=== PATIENT | female | born 1955 | race Caucasian/White ===

== ENCOUNTER 2025-08-28 16:44 | Inpatient (IN) | payer MEDICARE, OTHER, SELFPAY ==
[2025-08-28] VITALS (7 sets, daily range): BP systolic 65–125; BP diastolic 41–62; PULSE 45–57; RESP 16–20; TEMP 36.4–36.8; O2SAT 97–100; BMI 26.4; BMI 26.2
--- NOTE | 2025-08-28 17:00 | EDS_ITS ---
HPI History of Present Illness Chief Complaint: Dizziness Narrative Narrative: Patient is a 70-year-old female presenting to the emergency department for lightheadedness and SOB. Patient has a past medical history of paroxysmal A-fib on Xarelto, CAD, PVD, dyslipidemia, hypertension, aortic bypass surgery at in 2009 and tobacco abuse. Patient is here with daughter. The patient was at a on 08/08 and shortly after started to complain of lightheadedness with any movement. When she is at rest she does not have the symptoms however when she is standing up or walking she will become lightheaded. She does not describe it as room spinning or vertiginous symptoms. She does call at dizziness but on further questioning it is lightheadedness. She denies any focal numbness or weakness in her arms or legs. Denies headache, visual changes, slurred speech. Denies any chest pain. She states with only a few steps she will become short of breath and this also started around the same time. States this is abnormal for her. She denies any diaphoresis, abdominal pain, nausea or vomiting. Denies any recent diarrhea, dysuria or hematuria. Denies any falls. States that since October she was sick at that time and now does not have a good appetite and has been eating and drinking less and had weight loss since October. [facility] Medical History Dyslipidemia Tobacco abuse Hypertension PVD (peripheral vascular disease) CAD (coronary artery disease) Paroxysmal atrial fibrillation Cataract PAD (peripheral artery disease) Acid reflux Home Medications Medication Instructions Recorded Last Taken Type amlodipine 5 mg tablet 5 mg PO DAILY 03/01/1505/08 History aspirin 81 mg tablet,delayed 81 mg PO DAILY@0800 03/0105/08/15 History release isosorbide mononitrate 30 mg 30 mg PO DAILY 03/01/15 0 05/08/15 History tablet,extended release 24 hr rivaroxaban 20 mg tablet (Xarelto) 20 mg PO DAILY 02/1105/08/15 History rosuvastatin 40 mg tablet (Crestor) 40 mg PO QHS 03/0105/08/15 History sotalol 80 mg tablet (Betapace AF) 40 mg PO BID 05/09/15 09:00 History lisinopril 40 mg tablet 40 mg PO DAILY 08/28/25 Unkn own History Allergy/AdvReac Type Severity Reaction Status Date / Time cephalexin monohydrate (From Allergy Itching Verified 08/28/25 16:45 Keflex) sulfamethoxazole (From Allergy Rash Verified 08/28/25 16:45 Bactrim) trimethoprim (From Bactrim) Allergy Rash Verified 08/28/25 16:45 atorvastatin calcium (From AdvReac Pain in Verified 08/28/25 16:45 Lipitor) joints Surgical History H/O aorto-femoral bypass H/O heart artery stent S/P cholecystectomy Social History household members: spouse Smoking Status: Current every day smoker tobacco type: cigarettes alcohol intake: current alcohol intake frequency: holidays/special occasions only substance use type: does not use ROS ROS ED ROS Narrative see HPI EXAM Physical Exam Narrative Exam Narrative: Vital signs: Reviewed General: Alert and oriented x 3. No acute distress HEENT: Head is normocephalic and atraumatic, sinuses nontender, pupils equal round and reactive. Nares are patent. Oropharynx and throat exams normal. Moist mucous membranes. Neck: Supple without lymphadenopathy nontender Cardiovascular: Regular rate and rhythm, no murmurs. No rubs or gallops. Normal S1 and S2 Respiratory: Clear to auscultation bilaterally. No wheezes, rales, rhonchi Abdominal: Healed midline abdomianl scar. Soft and nontender. Normal bowel sounds. No guarding or rebound. Nonsurgical abdomen Extremities: No lower extremity edema. No tenderness. No bruising. Normal range of motion. Normal sensation. Skin: No rash or redness. Neurological: Cranial nerves II through XII are grossly intact. Normal strength and sensation. Normal cerebellar function. Normal [id number] testing bilaterally. Normal [id number] testing bilaterally. The rest of the physical exam is unremarkable Const Vital Signs: 08/28/25 16:45 08/28/25 17:50 08/28/25 17:58 Temperature 97.6 F L Temperature Source Oral Pulse Rate 51 L 45 L Pulse Rate [Lying] 48 L Pulse Rate [Sitting (for 1 minute prior to obtaining)] 47 L Pulse Rate [Standing (for 1 minute prior to obtaining)] 57 L Respiratory Rate 18 16 Blood Pressure 105/57 L 96/55 L Blood Pressure [Lying] 115/49 L Blood Pressure [Sitting (for 1 minute prior to obtaining)] 111/57 L Blood Pressure [Standing (for 1 minute prior to obtaining)] 65/41 L Blood Pressure Mean 73 68 Blood Pressure Mean [Lying] 71 Blood Pressure Mean [Sitting (for 1 minute prior to obtaining)] 75 Blood Pressure Mean [Standing (for 1 minute prior to obtaining)] 49 Pulse Ox 99 100 Oxygen Delivery Method Room Air 08/28/25 18:57 08/28/25 21:00 Temperature Temperature Source Pulse Rate 51 L 54 L Pulse Rate [Lying] Pulse Rate [Sitting (for 1 minute prior to obtaining)] Pulse Rate [Standing (for 1 minute prior to obtaining)] Respiratory Rate 16 16 Blood Pressure 104/62 112/56 L Blood Pressure [Lying] Blood Pressure [Sitting (for 1 minute prior to obtaining)] Blood Pressure [Standing (for 1 minute prior to obtaining)] Blood Pressure Mean 76 74 Blood Pressure Mean [Lying] Blood Pressure Mean [Sitting (for 1 minute prior to obtaining)] Blood Pressure Mean [Standing (for 1 minute prior to obtaining)] Pulse Ox 100 99 Oxygen Delivery Method Room Air Room Air NIHSS NIHSS Initial: 1a Level of Consciousness: 0 1b LOC Questions (Score 2 if aphasic/stupor): 0 1c LOC Commands (Only score 1st attempt): 0 2 Best Gaze (If aphasic, use reflexive mvmts.): 0 3 Visual: 0 4 Facial Palsy: 0 5 Motor Arm Right (UN = amputation/fusion): 0 5 Motor Arm Left: 0 6 Motor Leg Right: 0 6 Motor Leg Left: 0 7 Limb ataxia (Only + if out of proportion): 0 8 Sensory (Aphasia/stupor=0 or 1, coma=2): 0 9 Best Language: 0 10 Dysarthria (mute, coma=2, intubated=UN): 0 11 Extinction and Inattention (only scored if +): 0 Total Score: 0 MDM MDM MDM Narrative Medical decision making narrative: Patient is a 70-year-old female presenting to the emergency department for light headedness and dyspnea with exertion. Patient was seen and examined. Vitals are stable. Patient resting bed comfortably in no acute distress. Differential includes but is not limited to: ACS, CHF, pneumonia, anemia, electrolyte abnormality, dehydration EKG shows sinus bradycardia at a rate of [address] depression noted in V3 through V6 with T wave inversions. Similar appearing morphology on EKG one on May 11, 2015 however slightly deepened T waves. CBC with no leukocytosis and anemia of 9.0. Prior it was normal at 13.2 however that was in 2015. CMP with acute renal failure with a BUN of 31 and creatinine of 2.68, bicarb 15.3. Again last values on chart review are from 2015 and were borderline normal. 2 L of fluids were ordered. Transaminitis with AST of 149, ALT of 127 and alk phos of 3391. Elevated total bilirubin of 3.32 with direct of 2.58. Lipase of 172. Troponin and reflex of 21 and 18, no significant delta change. BNP off 931. Urinalysis with evidence of urinary tract infection with nitrites, leukocyte esterase, bacteria and WBC. Rocephin was given. There is also bilirubin and urobilinogen which is consistent with her CMP results. Magnesium within normal limits. Given the acute renal findings, CT of the abdomen and pelvis without contrast was obtained to evaluate for possible obstruction. Also obtained for evaluation of the elevated liver enzymes. She does have a prior history of cholecystectomy. Chest x-ray reviewed myself, no opacities, pneumothorax or wide mediastinum. Radiology read in agreement. CT of the abdomen pelvis shows probable treatment of the aortic aneurysm with 2 separate structures both bifurcating into what appear to be iliac vessels. Recommend confirmation of the suspicion with a contrast-enhanced study as well as correlation with the surgical history. It is my understanding the patient has renal failure. If this scan can not be obtained I would consult vascular surgery. Importantly, there is no extravasation of fluid on the current study to suggest rupture. I did speak with Dr. Vasquez at [facility] vascular surgery who states that this would be an expected finding after the bypass surgery and does not think it needs emergent vascular consultation given stable vitals and imaging findings with no rupture. Given the discussion with vascular surgeon and no evidence of rupture, stable vital signs and no abdominal or chest pain I think the risks of CT imaging with contrast outweigh benefits at this time. If her clinical status changes before going upstairs will obtain CT w contrast. I updated the patient on the lab and imaging findings. Explained that she would need to be admitted to the hospital for the abnormal labs that were discussed with her. She is agreeable. Patient admitted to Dr. Lundberg, hospitalist for further management. Clinical impression UTI Acute renal failure Transaminitis Elevated total bilirubin History & Record Review Discussion w/independent historian: Patient, Family and Significant other Lab Data Attestation: I reviewed the patient's lab results. Labs: Laboratory Results - last 24 hr 08/28/25 08/28/25 08/28/25 16:57 17:47 19:03 WBC 10.4 RBC 3.07 L Hgb 9.0 L Hct 29.3 L MCV 95.4 MCH 29.3 MCHC 30.7 L RDW Std Deviation 63.7 H RDW Coeff of Aisha 18.3 H Plt Count 224 MPV 11.4 Immature Gran % (Auto) 0.600 Neut % (Auto) 67.9 Lymph % (Auto) 21.0 [place] % (Auto) 4.5 Eos % (Auto) 5.1 H Baso % (Auto) 0.9 Absolute Neuts (auto) 7.1 Absolute Lymphs (auto) 2.19 Nucleated RBC % 0 Sodium 140 Potassium 3.7 Chloride 111 H Carbon Dioxide 15.3 L Anion Gap 14 BUN 31 H Creatinine 2.68 H Estim Creat Clear Calc 18.03 L Est GFR (MDRD) Non-Af 19 L BUN/Creatinine Ratio 11.7 Glucose 183 H Calcium 8.9 Phosphorus 4.3 Magnesium 2.2 Total Bilirubin 3.32 H Direct Bilirubin 2.58 H AST 149 H ALT 127 H Alkaline Phosphatase 3391 H Troponin T High Sens 21 H Troponin T Hi Sens 2 Hr 18 H NT pro BNP II 931 H Total Protein 6.6 Albumin 3.2 L Globulin 3.4 Lipase 172 H Urine Color Yellow Urine Clarity Clear Urine pH 6.0 Ur Specific [place] 1.020 Urine Protein 500 H Urine Glucose (UA) Normal Urine Ketones Negative Urine Occult Blood 150 H Urine Nitrite Positive H Urine Bilirubin 3 H Urine Urobilinogen 4 H Ur Leukocyte Esterase 100 H Urine RBC 5-10 SEEN Urine WBC 10-25 SEEN Ur Squamous Epith Cells 5-10 SEEN Urine Bacteria 3+ Hyaline Casts 0-5 SEEN Fine Granular Casts 5-10 SEEN Urine Mucus 0 SEEN Radiography Diagnostic Testing: Clinical Impression(s) from Imaging Studies Chest X-Ray 08/28/25 17:19 IMPRESSION: No acute abnormality Reading Location: [facility] Abdomen/Pelvis CT 08/28/25 18:42 IMPRESSION: Suspect probable treatment of the aortic aneurysm with 2 separate structures both bifurcating into what appear to be iliac vessels. Recommend confirmation of the suspicion with a contrast-enhanced study as well as correlation with the surgical history. It is my understanding the patient has renal failure. If this scan can not be obtained I would consult vascular surgery Importantly, there is no extravasation of fluid on the current study to suggest rupture. A reading will be called at the time of dictation at 8:30 p.m. on 08/28/2025 to the ER Reading Location: [facility] Discharge Plan Disposition Disposition: Acute Care Hospital [facility] Discharge Date/Time: 08/28/25 22:28
--- NOTE | 2025-08-28 17:19 | RAD_ITS ---
PROCEDURE: CHEST PA AND LATERAL 08/28/2025 REASON FOR EXAM: SOB TECHNIQUE: Procedure Code: RADCXR Modality: DX Procedure: CHEST PA AND LATERAL FINDINGS: Normal cardiomediastinal silhouette except for top-normal cardiac size. Lungs are clear. No edema or consolidation RAD/Chest PA and Lateral IMPRESSION: No acute abnormality Reading [facility]
--- NOTE | 2025-08-28 17:19 | EKG12_ITS ---
Test Reason : Blood Pressure : */* mmHG Vent. Rate : 46 BPM Atrial Rate : 46 BPM P-R Int : 134 ms QRS Dur : 94 ms QT Int : 566 ms P-R-T Axes : 52 6 197 degrees QTcB Int : [address] & T wave abnormality, consider inferior ischemia ST & T wave abnormality, consider anterolateral ischemia QTcB >= 480 msec Abnormal ECG Confirmed by LESLIE DAVID, FABY ([id number]), non linear editor HAL BAZAN ([id number]) on 08/30/2025 9:13:23 AM Referred By: Confirmed By: FABY NELSON MD
[2025-08-28] MEDS: 0.9% Normal Saline (1000mL) 1,000 ML 1000 ML IV ×2 (17:24→19:21)
[2025-08-28 17:30] LABS: Hematocrit 29.3 % (37-47); Hemoglobin 9.0 g/dL (12.0-15.0); Immature Granulocytes Count 0.060 X10^3/uL (0.0-0.0); Mean Corp Hgb Conc 30.7 g/dL (32-36); Mean Corpuscular Volume 95.4 fL (81-99); Mean Platelet Vol. 11.4 fl (6.2-12.0); NRBC Flagged by Analyzer 0 % (0-5); Platelet Count 224 K/mm3 (150-450); RBC Distribution Width CV 18.3 % (11.6-14.6); RBC Distribution Width SD 63.7 fl (35.1-43.9); Red Blood Count 3.07 M/mm3 (4.2-5.4); White Blood Count 10.4 K/mm3 (4.4-11.0)
[2025-08-28 18:00] LABS: Mucous, Urine 0 SEEN /hpf (<or=2+)
[2025-08-28 18:04] LABS: Anion Gap 14 (5-15); BUN 31 mg/dL (4-19); BUN/Creat Ratio 11.7 RATIO (10-20); Calcium,Total 8.9 mg/dL (7.6-11.0); Carbon Dioxide 15.3 mmol/L (21.0-32.0); Chloride 111 mmol/L (98-108); Estimated Creatinine Clearance 18.03 ml/min (50-250); Glucose 183 mg/dL (70-99); Potassium 3.7 mmol/L (3.3-5.1); Pro- Brain NATRIURETIC PEPTIDE 931 pg/mL (<=900); Troponin T High Sensitivity 21 ng/L (<=14)
[2025-08-28 18:10] LABS: Color, Urine Yellow (Yellow); Glucose, Dipstick Normal (Normal); Ketone-Dipstick Negative (Negative); Leukocyte Esterase-Dipstick 100 /ul (Negative); Nitrite-Dipstick Positive (Negative); Occult Blood-Urine 150 /ul (Negative); Protein-Dipstick 500 mg/dl (Negative); Specific Gravity, Urine 1.020 (1.002-1.030)
--- OUTSIDE RECORDS SUMMARY | 2025-08-28 18:24 | XMS RPT_ITS | CCD ---
Author Organization [facility] Inform ion Partnership [facility] Care Team Providers Care Mr Teacher Name Role Phone Cole HERNADEZCarli KWAN Primary Care Provider Carlos Quiroz Primary Care Provider [phone] CARLOS QUIROZ Primary Care Unavailabl e JHONNY MEDEL Attending Unavailable CARLOS QUIROZ Primary Care Unavailabl e Allergies Allergy Classification Reported Allergen(s) Allergy Type Date of Onset Reaction(s) Facility (20 sources) atorvastatin; Translations: [ATORVASTATIN CALCIUM] Drug Allergy 09-22-2012 Other: See Comments [facility] (20 sources) Cephalexin; Translations: [CEPHALEXIN] Drug Allergy 09-24-2011 Unknown [facility] (20 sources) Ciprofloxacin; Translations: [CIPROFLOXACIN] Drug Allergy 05-26-2015 Rash [facility] (20 sources) Doxycycline; Translations: [DOXYCYCLINE] Drug Allergy 11-09-2019 GI Upset [facility] Work Phone: (20 sources) Sulfamethoxazole ; Translations: [SULFAMETHOXAZOL E] Drug Allergy 12-08-2012 [facility] (20 sources) Trimethoprim; Translations: [TRIMETHOPRIM] Drug Allergy 12-08-2012 [facility], Swelling [facility] Medications Current Medications Medication Drug Class(es) Dates Sig (Normalized) Sig (Original) [id number] 200 actuat albuterol 0.09 mg/actuat metered dose inhaler (4 sources) beta2-Adrenergic Agonist Start: 11-10-2024 End: 12-10-2024 take 2 puff(s) by inhalation every four hours as needed for wheezing albuterol HFA (PROVENTIL HFA, VENTOLIN HFA) 90 mcg/actuation inhaler Indications: Bronchitis Inhale 2 Puffs as instructed every 4 hours as needed for wheezing/shortnes s of breath. 1 Each 11/10/2024 Active amLODIPine 5 mg oral tablet (20 sources) Dihydropyridine Calcium Channel Elisa Start: 05-12-2021 End: 03-18-2025 take 1 tablet by mouth once daily amLODIPine (NORVASC) 5 mg tablet Indications: Primary hypertension , Coronary artery disease involving [place] coronary artery of [place] heart without angina pectoris , PAD (peripheral artery disease) Take 1 tablet by mouth once daily. 90 tablet 3 03/18/2025 Active Comment on above: Take 1 tablet by kemal th once daily. aspirin 81 mg delayed release oral tablet (20 sources) Platelet Aggregation Inhibitor, Nonsteroidal Anti-inflammatory Drug Start: 12-08-2012 take 1 tablet by mouth once daily aspirin, enteric coated (ECOTRIN LOW STRENGTH) 81 mg EC tablet Take 1 tablet by mouth once daily. 0 12/08/2012 Active Comment on above: Take 1 tablet by kemal th once daily. benzonatate 100 mg oral capsule (1 source) Non-narcotic Antitussive Start: 11-10-2024 End: 11-17-2024 take 1 capsule by mouth three times daily as needed for cough benzonatate (TESSALON PERLE) 100 mg capsule Indications: Bronchitis Take 1 capsule by mouth three times a day as needed for cough for up to 7 days. 21 capsule 11/10/2024 11/17/2024 Active doxycycline hyclate 100 mg oral tablet (1 source) Tetracycline-class Drug Start: 11-10-2024 End: 11-20-2024 take 1 tablet by mouth twice daily doxycycline (VIBRA-TABS) 100 mg tablet Take 1 tablet by mouth two times a day for 10 days. 20 tablet 11/10/2024 11/20/2024 Active Inhalational Spacing Device (1 source) Start: 11-10-2024 End: 11-10-2024 Inhalational Spacing Device Indications: Bronchitis 1 Device one time only for 1 dose. 1 Each 11/10/2024 11/10/2024 Active 24 hr isosorbide mononitrate 30 mg extended release oral tablet (20 sources) Nitrate Vasodilator Start: 05-12-2021 End: 04-05-2025 take 1 tablet by mouth once daily isosorbide mononitrate ER (IMDUR) 30 mg 24 hr tablet Indications: Coronary artery disease involving [place] coronary artery of [place] heart without angina pectoris , PAD (peripheral artery disease) Take 1 tablet by mouth once daily. 90 tablet 3 04/05/2025 Active Comment on above: Take 1 tablet by kemal th once daily. TAKE 1 TABLET BY KEMAL TH EVERY DAY lisinopril 40 mg oral tablet (20 sources) Angiotensin Converting Enzyme Inhibitor Start: 05-12-2021 End: 04-12-2025 take 1 tablet by mouth once daily lisinopril (ZESTRIL) 40 mg tablet Indications: Coronary artery disease involving [place] coronary artery of [place] heart without angina pectoris Take 1 tablet by mouth once daily. 90 tablet 1 04/12/2025 Active Comment on above: Take 1 tablet by kemal th once daily. TAKE 1 TABLET BY KEMAL TH EVERY DAY perflutren lipid microspheres 1.3 mL in NaCl (PF) 0.9% 10 mL injection (DEFINITY) (5 sources) Start: 2022 End: 10-23-2023 perflutren lipid microspheres 1.3 mL in NaCl (PF) 0.9% 10 mL injection (DEFINITY) rivaroxaban 20 mg oral tablet (20 sources) Factor Xa Inhibitor Start: 10-31-2023 End: 12-13-2024 take 1 tablet by mouth once daily rivaroxaban (XARELTO) 20 mg tablet Indications: Paroxysmal atrial fibrillation (HCC) Take 1 tablet by mouth once daily. 90 tablet 3 12/14/2024 Active Start: 03-17-2022 End: 06-19-2023 take 1 tablet by mouth once daily rivaroxaban (XARELTO) 20 mg tablet Indications: Paroxysmal atrial fibrillation (HCC) Take 1 tablet by mouth once daily. Need appointment for future refills. 90 tablet 0 06/19/2023 Active Start: 03-17-2021 End: 03-14-2022 take 1 tablet by mouth once daily rivaroxaban (XARELTO) 20 mg tablet Indications: Paroxysmal atrial fibrillation (HCC) Take 1 tablet by mouth once daily. 90 tablet 3 03/17/2022 Active Comment on above: Take 1 tablet by kemal th once daily. Take 1 tablet by kemal th once daily. Need appointment for future refills. rosuvastatin calcium 40 mg oral tablet (20 sources) HMG-CoA Reductase Inhibitor Start: 05-12-20 End: 03-18-20 take 1 tablet by mouth once rosuvastatin (CRESTOR) 40 mg tablet Indications: Primary hypertension , Coronary artery disease involving [place] coronary artery of [place] heart without angina pectoris , PAD (peripheral artery disease) Take 1 tablet by mouth every afternoon. 90 tablet 3 03/18/2025 Active Comment on above: Take 1 tablet by kemal th once daily. TAKE 1 TABLET BY KEMAL TH EVERY DAY 125 ml sodium chloride 9 mg/ml prefilled syringe (5 sources) Start: 07-24-20 22 End: 10-23-19 24 sodium chloride 0.9 % (flush) 10 mL (BD POSIFLUSH) sotalol hydrochloride 80 mg oral tablet (20 sources) Antiarrhythmic Start: 04-22-20 23 End: 03-18-20 25 take 0.5 tablet by mouth twice daily sotalol (BETAPACE) 80 mg tablet Indications: Primary hypertension , Coronary artery disease involving [place] coronary artery of [place] heart without angina pectoris , PAD (peripheral artery disease) Take 0.5 tablets by mouth two times a day. 90 tablet 03/18/2025 Active Start: 05-12-2021 End: 05-02-2022 take 0.5 tablet by mouth twice daily sotalol (BETAPACE) 80 mg tablet TAKE 1/2 TABLET BY MOUTH TWICE DAILY 90 tablet 3 05/02/2022 Active Comment on above: TAKE 0.5 TABLET BY M OUTH TWICE DAILY. TAKE 1/2 TABLET BY M OUTH TWICE DAILY TAKE 1/2 TABLET BY M OUTH TWICE A DAY Completed/Discontinued Medications Medication Drug Class(es) Dates Sig (Normalized) Sig (Original) 12 hr buPROPion hydrochloride 150 mg extended release oral tablet (14 sources) Aminoketone Start: 1 End: 2 take 1 tablet by mouth twice daily buPROPion SR (ZYBAN SR; WELLBUTRIN SR) 150 mg 12 hr tablet TAKE 1 TABLET BY MOUTH TWICE A DAY 180 tablet 3 06/11/2022 Active Comment on above: TAKE 1 TABLET BY KEMAL TH TWICE A DAY 1 ml evolocumab 140 mg/ml auto-injector (13 sources) PCSK9 Inhibitor Start: 1 inject 140 mg by subcutaneous injection every other week evolocumab 140 mg/mL subcutaneous pen injector (REPATHA SURECLICK) Indications: Pure hypercholesterolemia Inject 140 mg subcutaneously every 2 weeks. 2 Pen 12 03/17/2021 Active Comment on above: Inject 140 mg subcut aneously every 2 weeks. gabapentin 100 mg oral capsule (8 sources) Anti-epileptic Agent Start: gabapentin (NEURONTIN) 100 mg capsule Take 1-3 capsules up to 3 times a day as needed for pain 45 capsule 0 05/12/2021 Active Comment on above: Take 1-3 capsules up to 3 times a day as needed for pain Problems Active Problems Problem Classification Problem Date Documented Da te Episodic/Chronic Cardiac dysrhythmias (20 sources) Paroxysmal atrial fibrillation; Translations: [Paroxysmal atrial fibrillation] Onset: 09-06-2012 Chronic Chronic kidney disease (20 sources) Chronic kidney disease stage 3A ; Translations: [Stage 3a chronic kidney disease (HCC)] Onset: 03-14-2020 Chronic Chronic obstructive pulmonary disease and bronchiectasis (2 sources) Bronchitis; Translations: [Bronchitis, not specified as acute or chronic] 11-10-2024 Episodic Coronary atherosclerosis and other heart disease (20 sources) Coronary atherosclerosis; Translations: [Atherosclerotic heart disease of [place] coronary artery without angina pectoris] Onset: 09-16-2012 Chronic Disorders of lipid metabolism (20 sources) Pure hypercholesterolemi a; Translations: [Pure hypercholesterolemi a, unspecified] Onset: 09-06-2012 Chronic Essential hypertension (20 sources) Hypertensive disorder; Translations: [Essential (primary) hypertension] Onset: 09-06-2012 10-14-2016 Chronic Gout and other crystal arthropathies (20 sources) Acute gout; Translations: [Gout, unspecified] Onset: 08-14-2013 09-08-2013 Chronic Menopausal disorders (20 sources) Atrophic vaginitis; Translations: [Postmenopausal atrophic vaginitis] Onset: 09-17-2018 09-17-2018 Chronic Other aftercare (20 sources) Patient encounter status; Translations: [Encounter for therapeutic drug level monitoring] Onset: 09-06-2012 Episodic Other circulatory disease (20 sources) History of aortofemoral bypass surgery; Translations: [Presence of other vascular implants and grafts] Onset: 07-29-2013 Chronic Other connective tissue disease (20 sources) Plantar fasciitis; Translations: [Plantar fascial fibromatosis] 08-27-2018 Episodic Other lower respiratory disease (1 source) Persistent cough; Translations: [Persistent cough for 3 weeks or longer] 11-10-2024 Episodic Peripheral and visceral atherosclerosis (20 sources) Peripheral vascular disease, unspecified; Translations: [Peripheral vascular disease, unspecified] Onset: 12-08-2012 Chronic Spondylosis; intervertebral disc disorders; other back problems (1 source) Sciatica; Translations: [Sciatica, left side] Episodic Unclassified (10 sources) Drug therapy finding; Translations: [DVT prophylaxis] Onset: 09-06-2012 Past or Other Problems Problem Classification Problem Date Documented Date Episodic/Chronic Coronary atherosclerosis and other heart disease (20 sources) Stent in anterior descending branch of left coronary artery; Translations: [Presence of coronary angioplasty implant and graft] Onset: 2 Episodic Other aftercare (20 sources) Drug therapy finding; Translations: [nursing home (current) use of anticoagulants] Onset: 2 Episodic Other aftercare (7 sources) Long-term current use of drug therapy; Translations: [Encounter for therapeutic drug level monitoring] Onset: 4 04-13-2014 Episodic Other liver diseases (20 sources) Alkaline phosphatase raised; Translations: [Abnormal levels of other serum enzymes] Onset: 2 Episodic Other liver diseases (20 sources) Elevated liver enzymes level; Translations: [Abnormal levels of other serum enzymes] Onset: 3 09-08-2013 Episodic Other screening for suspected conditions (not mental disorders or infectious disease) (20 sources) Electrocardiogram abnormal; Translations: [Abnormal electrocardiogram [ECG] [EKG]] Onset: 2 Episodic Residual codes; unclassified (20 sources) Tobacco user; Translations: [Tobacco use] Onset: 4 Episodic Residual codes; unclassified (20 sources) Harmful pattern of use of nicotine; Translations: [Tobacco use] Onset: 2 Episodic Results Test Name Value Interpretation Reference Range Facil ity 36on 11-10-2024 36 Spoke to patient, no questions. [facility] 36 Currently not taking new patients until we get more help in the office [facility] 36 Name of caller: Priyank Holguin Contact phone number: [phone] Relationship to Patient: patient Provider: Dr. Quiroz Practice: [facility] Chief Complaint/Reason for Call: Pt hasn't been seen in office since 06.07.[address] is [address] Dr. Quiroz would take her back as a patient. Pt stated she isn't feeling well and may have RSV and short of breath, declined nurse triage. Pt would like a call back to discuss. Please advise. Thank you. Best time of day caller can be reached: ANy Patient advised that office/PCP has 24-48 business hours to return their call: Yes [facility] CNOVon 11-10-2024 [facility] Office Visit (UCWSTR ) -------- KIMBERMIRELLA RANDALLS Gillian ([id number]) 1955 F Date Time Provider Department 11/10/24 11:45 AM MARIANA MELGAR [facility] During your visit today, we recorded the following information about you: Temperature Pulse Respiration Blood pressure 97.5 degrees 66/minute 16/minute 128/80 Weight 75.9 kg Mariana Meglar PA-C 11/10/2024 12:09 PM Signed This note was created using [employer]ter. Subjective Maria Teresa Quiroga is a 69 year old female. Patient is a 69-year-old female who is brought by caregiver for evaluation of worsening cough and shortness of breath that she has been experiencing for the past 2 weeks. Patient reports no congestion, sinus pressure, ear pain or sore throat. Patient has no history of asthma or COPD but does have an approximate [id number] history of tobacco use and continues to smoke approximately 1/2 pack cigarettes per day. Patient denies fever, chills or myalgia. Patient denies left chest pain, tightness or pressure. Patient has a substantial cardiovascular history yet continues to smoke. Cough Review of Systems Respiratory: Positive for cough. All other systems reviewed and are negative. Objective BP 128/80 Pulse 66 Temp 36.4 ?C (97.5 ?F) Resp 16 Wt 75.9 kg (167 lb 5.3 oz) SpO2 96% BMI 29.64 kg/m? Physical Exam Vitals and nursing note reviewed. Constitutional: Appearance: Normal appearance. She is normal weight. HENT: Head: Normocephalic and atraumatic. Right Ear: External ear normal. Left Ear: External ear normal. Nose: Nose normal. Mouth/Throat: Mouth: Mucous membranes are moist. Pharynx: Oropharynx is clear. Eyes: Extraocular Movements: Extraocular movements intact. Conjunctiva/sclera: Conjunctivae normal. Pupils: Pupils are equal, round, and reactive to light. Cardiovascular: Rate and Rhythm: Normal rate and regular rhythm. Pulses: Normal pulses. Heart sounds: Normal heart sounds. Pulmonary: Effort: Pulmonary effort is normal. Breath sounds: Normal breath sounds. Musculoskeletal: Cervical back: Normal range of motion and neck supple. Skin: General: Skin is warm and dry. Capillary Refill: Capillary refill takes less than 2 seconds. Neurological: General: No focal deficit present. Mental Status: She is alert and oriented to person, place, and time. Psychiatric: Mood and Affect: Mood normal. Behavior: Behavior normal. Thought Content: Thought content normal. Judgment: Judgment normal. Assessment and Plan Physical exam findings as noted above. Patient was provided with prescriptions for doxycycline 100 mg, Tessalon 100 mg and an albuterol MDI. Patient was very clearly instructed to report to an emergency department if she experiences worsening shortness of breath, dyspnea or other symptoms. Patient verbalizes clear understanding of the above instructions. CLINICAL IMPRESSION: Bronchitis; Persistent Cough; Tobacco Abuse ASSESSMENT/PLAN: 1. Persistent cough for 3 weeks or longer - ICD9: 786.2, ICD10: R05.3 (primary diagnosis) 2. Bronchitis - ICD9: 490, ICD10: J40 - ALBUTEROL SULFATE HFA 90 MCG/ACTUATION AEROSOL INHALER - INHALATIONAL SPACING DEVICE - BENZONATATE 100 MG CAPSULE 3. Tobacco abuse - ICD9: 305.1, ICD10: Z72.0 Mariana Melgar PA-C Allergies As of Date: 11/10/2024 Noted Allergy Reaction CEPHALEXIN 09/24/2011 16 - Unknown CIPROFLOXACIN 05/26/2015 2 - Rash DOXYCYCLINE 11/09/2019 8 - GI Upset Comments: Can use if absolutely necessary, but caused stomach upset LIPITOR (ATORVASTATIN CALCIUM) 09/22/2012 14 - Other: See Comments SULFAMETHOXAZOLE 12/08/2012 4 - Hives TRIMETHOPRIM 12/08/2012 4 - Hives 7 - Swelling Date Reviewed: 11/10/2024 Reviewed by: Hilary Davalos MA - Fully Assessed Reason for Visit: Cough [28] Cmt: sob, nasal congestion x 10 days Primary Visit Diagnosis:Persistent cough for 3 weeks or longer [R05.3] Other Visit Diagnoses:Bronchitis [J40] Tobacco abuse [Z72.0] Order(s):albuterol HFA (PROVENTIL HFA, VENTOLIN HFA) 90 mcg/actuation inhalerInhale 2 Puffs as instructed every 4 hours as needed for wheezing/shortness of breath.Disp: 1 EachRfl: 0 Inhalational Spacing Device1 Device one time only for 1 dose.Disp: 1 EachRfl: 0 benzonatate (TESSALON PERLE) 100 mg capsuleTake 1 capsule by mouth three times a day as needed for cough for up to 7 days.Disp: 21 capsuleRfl: 0 doxycycline (VIBRA-TABS) 100 mg tabletTake 1 tablet by mouth two times a day for 10 days.Disp: 20 tabletRfl: 0 Prescriptions as of 11/10/2024 - albuterol HFA (PROVENTIL HFA, VENTOLIN HFA) 90 mcg/actuation inhaler Inhale 2 Puffs as instructed every 4 hours as needed for wheezing/shortness of breath. - Inhalational Spacing Device 1 Device one time only for 1 dose. - benzonatate (TESSALON PERLE) 100 mg capsule Take 1 capsule by mouth three times a day as needed for cough for up to 7 days. (more content not included)... Normal [facility] CNOVon 04-30-2024 [facility] Office Visit ([facility] ) -------- MARIA TERESA QUIROGA ([id number]) 1955 F Date Time Provider Department 04/30/24 3:40 PM JHONNY MEDEL [facility] During your visit today, we recorded the following information about you: Pulse Blood pressure Weight Height 54/minute 134/78 82.6 kg 1.6 m Jhonny Medel MD 04/30/2024 4:39 PM Signed [facility] [place] [facility] Department of Cardiovascular Medicine SECTION OF CLINICAL CARDIOLOGY OUTPATIENT VISIT DATE April 30, 2024 OUTPATIENT VISIT TYPE ESTABLISHED PATIENT: Maria Teresa Quiroga DATE OF : 1955 DATE: 04/30/2024 INTERVAL HISTORY: Ms. Quiroga comes for a follow up visit for CAD, PAF on sotalol and Xarelto, HL, HTN. The last visit with me was 6 mos ago. She and Josh recently got ! She is doing well. She is down to less than half a pack of cigarettes. She quit for a week, and then she learned that her brother . ROS: Negative for cough, wheezing, shortness of breath and chest pain Negative for leg swelling, palpitations, claudication, orthopnea, paroxysmal nocturnal dyspnea, syncope. All other reviewed and negative other than HPI. CURRENT MEDICATIONS: rosuvastatin (CRESTOR) 40 mg tablet take 1 tablet by mouth every day isosorbide mononitrate ER (IMDUR) 30 mg 24 hr tablet take 1 tablet by mouth every day amLODIPine (NORVASC) 5 mg tablet take 1 tablet by mouth every day rivaroxaban (XARELTO) 20 mg tablet Take 1 tablet by mouth once daily. lisinopril (ZESTRIL) 40 mg tablet TAKE 1 TABLET BY MOUTH EVERY DAY sotalol (BETAPACE) 80 mg tablet TAKE 1/2 TABLET BY MOUTH TWICE A DAY aspirin, enteric coated (ECOTRIN LOW STRENGTH) 81 mg EC tablet Take 1 tablet by mouth once daily. PHYSICAL EXAMINATION: General: No distress, alert and oriented Vital signs: BP 134/78 Pulse 54 Ht 5' 3" (1.60m) Wt 182 lb (82.6kg) BMI 32.25 kg/(m2). Neck: no JVD Lungs: clear to auscultation Cardiac exam: RRR normal S1, S2 no murmurs Extremities: warm, well perfused, no edema EKG: sinus bradycardia and QT 466, lateral TWI - no change CARDIAC STUDIES: PVR February 2018 IMPRESSION RIGHT SIDE Resting right ankle brachial index: 0.96 Post exercise right ankle brachial index: 0.84 Borderline abnormal ankle brachial index at rest. Right ankle: Borderline abnormal at rest. Right small vessel disease versus vasoconstriction. Note drop in pressure and/or ankle-brachial index after exercise, consistent with peripheral artery disease. Unable to determine exact area of narrowing. LEFT SIDE Resting left ankle brachial index: 0.96 Post exercise left ankle brachial index: 0.81 Borderline abnormal ankle brachial index at rest. Left ankle: Borderline abnormal at rest. Left small vessel disease versus vasoconstriction. Note drop in pressure and/or ankle-brachial index after exercise, consistent with peripheral artery disease. Unable to determine exact area of narrowing. Technologist: Carmen Shaikh RVT Ordering physician: Liz Gonzalez Interpreting physician: PIYUSH Sharma DO echo 12/2014 CONCLUSIONS: - Exam indication: CAD/ME/AFib - The left ventricle is normal in size. Left ventricular systolic function is normal. EF = 55 ? 5% (visual est.) Baseline left ventricular diastolic function is consistent with abnormal relaxation (stage 1). - The right ventricle is normal in size. Right ventricular systolic function is normal. - There are no significant valvular abnormalities. - No prior echocardiographic exam available for comparison. LABS: Latest Ref Rng AND Units 12/12/2018 10/12/2021 10/31/2023 CMP Sodium 136 - 144 mmol/L 136 140 140 Potassium 3.7 - 5.1 mmol/L 4.8 4.6 5.4 Chloride 97 - 105 mmol/L 103 107 108 CO2 22 - 30 mmol/L 18 22 17 Glucose 74 - 99 mg/dL 94 87 139 BUN 7 - 21 mg/dL 36 23 29 Creatinine 0.58 - 0.96 mg/dL 2.04 1.61 2.28 EGFR >=60 mL/min/1.73m? 23 EGFR-All Other Races . 25 32 EGFR- 30 39 Protein, Total 6.3 - 8.0 g/dL 7.7 6.3 7.4 Albumin 3.9 - 4.9 g/dL 4.3 3.9 4.2 Calcium 8.5 - 10.2 mg/dL 9.8 9.4 9.5 Bilirubin, Total 0.2 - 1.3 mg/dL 0.4 0.4 0.4 AST 13 - 35 U/L 30 30 19 ALT 7 - 38 U/L 27 22 14 Alkaline Phosphatase 34 - 123 U/L 484 334 371 Hemoglobin (g/dL) Date Value 10/31/2023 12.7 10/12/2021 13.0 Hematocrit (%) Date Value 10/31/2023 41.9 10/12/2021 41.7 WBC (k/uL) Date Value 10/31/2023 13.61 10/12/2021 10.33 No results found for: HBA1C Cholesterol, Total (mg/dL) Date Value 10/12/2021 158 12/12/2018 151 Total Cholesterol, Nonfasting (mg/dL) Date Value 10/31/2023 145 HDL Cholesterol (mg/dL) Date Value 10/12/2021 44 12/12/2018 39 HDL Cholesterol, Nonfasting (mg/dL) Date Value 10/31/2023 37 LDL Cholesterol (mg/dL) Date (more content not included)... Normal [facility] [id number] 04-30-2024 ECG01 Ventricular Rate : 5 4 BPM Atrial Rate : 54 BPM P-R Interval : 130 ms QRS Duration : 86 ms Q-T Interval : 492 ms QTC Calculation(Bazett) : 466 ms Calculated P [place] : 62 degrees Calculated R [place] : 1 degrees Calculated T [place] : 178 degrees S[address]IA [address] & INFERIOR T WAVE ABNORMALITY ST & ANTEROLATERAL T WAVE ABNORMALITY ABNORMAL ECG Confirmed by MD MEDEL MATTHEW ([id number]), publications editor RONDA EDWARDS ([id number]) on 04/30/2024 4:09:10 PM NAME : MARIA TERESA HOLGUIN PID : [id number] : 1955 Gender : Female Race : ORD : Procedure Date : Apr 30 2024 15:39:24 Edit Date : Apr 30 2024 16:09:11 Diagnosis: SINUS BRADYCARDIA ST & INFERIOR T WAVE ABNORMALITY ST & ANTEROLATERAL T WAVE ABNORMALITY ABNORMAL ECG Confirmed by MD MEDEL MATTHEW ([id number]), publications editor RONDA EDWARDS ([id number]) on 04/30/2024 4:09:10 PM Test Reason : Location : 503 : CARD Overread By : MD MEDEL MATTHEW Edited By : RONDA EDWARDS Referred By : LATRELL,M Acquired by : , Normal [facility] Vital Signs Date Time Vital Sign Value Performing Clinician Sharmin serna 11-10-2024 11:45-0500 Body mass index (BMI) [Ratio] 29.64 kg/m2 Mariana Clutter PA-C Work Phone: [facility] 11-10-2024 11:45-0500 Body temperature 97.5 [degF] Mariana Clutter PA-C Work Phone: [facility] 11-10-2024 11:45-0500 Body weight 75.9 kg Mariana Clutter PA-C Work Phone: [facility] 11-10-2024 11:45-0500 Diastolic blood pressure 80 mm[Hg] Mariana Clutter PA-C Work Phone: [facility] 11-10-2024 11:45-0500 Heart rate 66 /min Mariana Clutter PA-C Work Phone: [facility] 11-10-2024 11:45-0500 Respiratory rate 16 /min Mariana Clutter PA-C Work Phone: [facility] 11-10-2024 11:45-0500 SaO2% (BldA) [Mass fraction] 96 % Mariana Clutter PA-C Work Phone: [facility] 11-10-2024 11:45-0500 Systolic blood pressure 128 mm[Hg] Mariana Clutter PA-C Work Phone: [facility] 04-30-2024 15:37-0400 Body height 160 cm Jhonny Medel MD Work Phone: [facility] 04-30-2024 15:37-0400 Body mass index (BMI) [Ratio] 32.24 kg/m2 Jhonny Medel MD Work Phone: [facility] 04-30-2024 15:37-0400 Body weight 82.56 kg Jhonny Medel MD Work Phone: [facility] 04-30-2024 15:37-0400 Diastolic blood pressure 78 mm[Hg] Jhonny Medel MD Work Phone: [facility] 04-30-2024 15:37-0400 Heart rate 54 /min Jhonny Medel MD Work Phone: [facility] 04-30-2024 15:37-0400 Systolic blood pressure 134 mm[Hg] Jhonny Medel MD Work Phone: [facility] 2022 15:36-0400 Body height 160 cm Jhonny Medel MD Work Phone: [facility] 2022 15:36-0400 Body weight 84.37 kg Jhonny Medel MD Work Phone: [facility] 2022 15:36-0400 Diastolic blood pressure 72 mm[Hg] Jhonny Medel MD Work Phone: [facility] 2022 15:36-0400 Heart rate 60 /min Jhonny Medel MD Work Phone: [facility] 2022 15:36-0400 Systolic blood pressure 122 mm[Hg] Jhonny Medel MD Work Phone: [facility] 01-16-2022 13:53-0400 Body height 160 cm Jhonny Medel MD Work Phone: [facility] 01-16-2022 13:53-0400 Body weight 83.92 kg Jhonny Medel MD Work Phone: [facility] 01-16-2022 13:53-0400 Diastolic blood pressure 86 mm[Hg] Jhonny Medel MD Work Phone: [facility] 01-16-2022 13:53-0400 Heart rate 57 /min Jhonny Medel MD Work Phone: [facility] 01-16-2022 13:53-0400 Systolic blood pressure 136 mm[Hg] Jhonny Medel MD Work Phone: [facility] Encounters Encounter Date Encounter Type Care Provider Facility Start: 04-10-2025 End: 04-12-2025 Refill Jhonny Medel MD Work Phone: Cardiology Comment on above: Refill Request Start: 04-03-2025 End: 04-05-2025 Refill Jhonny Medel MD Work Phone: Cardiology Comment on above: Refill Request Start: 03-18-2025 End: 03-18-2025 ambulatory Jhonny Medel MD Work Phone: Cardiology Comment on above: Prescription Start: 03-18-2025 End: 03-18-2025 Refill Geoffrey Harley MD, PhD Work Phone: Cardiology Comment on above: Refill Request Start: 12-13-2024 End: 12-14-2024 Refill Jhonny Medel MD Work Phone: Cardiology Comment on above: Refill Request Start: 12-02-2024 End: 12-02-2024 Refill Mariana Clutter PA-C Work Phone: [employer] Comment on above: Refill Request Start: 11-10-2024 End: 11-10-2024 ambulatory CARLOS QUIROZ Facility:[facility] Start: 11-10-2024 End: 11-10-2024 Office outpatient new 30 minutes Mariana Clutter PA-C Work Phone: [employer] Comment on above: Persistent cough for 3 weeks or longer (Primary Dx); Bronchitis; Tobacco abuse Start: 04-30-2024 End: 04-30-2024 ambulatory JHONNY MEDEL Facility:[facility] Start: 04-30-2024 End: 04-30-2024 Patient encounter procedure Jhonny Medel MD Work Phone: Cardiology Comment on above: Coronary artery dise ase involving bear [place] coronary artery of [place] heart without angina pectoris (Primary Dx); History of ME (myocardial infarction) December 2008; s/p PCI with JIM to the LAD 12/2008; PAD (peripheral artery disease) ([facility] H/O aorto-femoral bypass for occluded aorta 2009; Paroxysmal atrial fibrillation ([facility]); Encounter for monitoring sotalol therapy; Anticoagulated by anticoagulation treatment (Xarelto); Primary hypertension; Pure hypercholesterolemia; Tobacco abuse; Stage 3a chronic kidney disease ([facility]) Start: 04-16-2024 Refill Jhonny velez MD Work Phone: Cardiology Comment on above: Refill Request Start: 03-30-[address], MD, PhD Work Phone: Cardiology Comment on above: Refill Request Start: 11-03-2023 ambulatory Jhonny velez MD Work Phone: Cardiology Comment on above: labs Start: 11-03-2023 E-mail encounter fro m caregiver Jhonny Medel MD Work Phone: [facility] Start: 06-19-2023 Refill Jhonny velez MD Work Phone: Cardiology Comment on above: Refill Request Start: 05-31-2023 Refill Jhonny velez MD Work Phone: Cardiology Comment on above: Refill Request; Refi ll Request Start: 05-02-2023 Refill Jhonny velez MD Work Phone: Cardiology Comment on above: Refill Request Start: 04-08-2023 Refill Jhnony velez MD Work Phone: Cardiology Comment on above: Refill Request Start: 2022 End: 2022 Patient encounter procedure Jhonny Medel MD Work Phone: Cardiology Comment on above: Coronary artery dise ase involving bear [place] coronary artery of [place] heart without angina pectoris (Primary Dx); History of ME (myocardial infarction) December 2008; s/p PCI with JIM to the LAD 12/2008; PAD (peripheral artery disease) ([facility]); H/O aorto-femoral bypass for occluded aorta 2009; Paroxysmal atrial fibrillation ([facility]); Encounter for monitoring sotalol therapy; Anticoagulated by anticoagulation treatment (Xarelto); Pure hypercholesterolemia; Tobacco abuse; Stage 3a chronic kidney disease ([facility]); Sciatica of left side Start: 06-10-2022 Refill Jhonny velez MD Work Phone: Cardiology Comment on above: Refill Request Start: 05-12-2022 Refill Jhonny velez MD Work Phone: Cardiology Comment on above: Refill Request Start: 05-02-2022 Refill Jhonny velez MD Work Phone: Cardiology Comment on above: Refill Request Start: 04-14-2022 Refill Jhonny velez MD Work Phone: Cardiology Comment on above: Refill Request Start: 04-11-2022 ambulatory Carlisapphire calles KNITTER MACHINE.WEDDING FLORIST Work Phone: [facility] [place] Start: 03-16-2022 Get Medical Advice Jhonny Medel MD Work Phone: Cardiology Comment on above: Xarelto refill Start: 03-12-2022 Refill Kirk Lopezwild KNITTER MACHINE.WEDDING FLORIST Work Phone: Cardiology Comment on above: Refill Request Start: 01-16-2022 End: 01-16-2022 Patient encounter procedure Jhonny Medel MD Work Phone: Cardiology Comment on above: Coronary artery dise ase involving bear [place] coronary artery of [place] heart without angina pectoris (Primary Dx); History of ME (myocardial infarction) December 2008; s/p PCI with JIM to the LAD 12/2008; PAD (peripheral artery disease) ([facility]); H/O aorto-femoral bypass for occluded aorta 2009; Paroxysmal atrial fibrillation ([facility]); Encounter for monitoring sotalol therapy; Anticoagulated by anticoagulation treatment (Xarelto); Pure hypercholesterolemia; Tobacco abuse; Stage 3a chronic kidney disease ([facility]) Procedures Date Procedure Procedure Detail Performing Clinician Start: 10-31-2023 Lipid 1996 panel - S chet or Plasma Jhonny Medel MD Work Phone: Start: 11-06-2019 Adult depression scr eening assessment Jhonny Medel MD Work Phone: Start: 05-22-2016 Mammography Jhonny hernandez MD Work Phone: Plan of Treatment Date Care Activity Detail Author Start: 10-31-2028 Lipid panel Lipid Screening [facility] Start: 10-31-2026 Diabetes Screening Diabetes Screenin g [facility] Start: 10-12-2026 LIPID SCREEN LIPID SCREEN [facility] Start: 09-21-2025 End: 09-21-2025 Patient encounter procedure 09/21/2025 3:40 PM EST Office Visit Cardiology [address] [place] [address] [place] [address] [place] [address] 6 month follow up Cardiology Comment on above: 6 month follow up Start: 06-14-2025 Influenza vaccination Influenz a Vaccine (Season Ended) [facility] Start: 03-18-2025 End: 06-17-2025 CBC panel - Blood by Automated count COMPLETE BLOOD COUNT Lab Routine Primary hypertension Coronary artery disease involving [place] coronary artery of [place] heart without angina pectoris PAD (peripheral artery disease) Expected: 03/18/2025 (Approximate), Expires: 06/17/2025 [facility] Comment on above: Expected: 03/18/2025 (Approximate), Expires: 06/17/2025 Start: 03-18-2025 End: 06-17-2025 LIPID PANEL, NONFASTING LIPID PANEL, NONFASTING Lab Routine Primary hypertension Coronary artery disease involving [place] coronary artery of [place] heart without angina pectoris PAD (peripheral artery disease) Expected: 03/18/2025 (Approximate), Expires: 06/17/2025 [facility] Comment on above: Expected: 03/18/2025 (Approximate), Expires: 06/17/2025 Start: 10-31-2024 Complete blood count Hemoglobin/Domenico tocrit [facility] Start: 10-31-2024 Creatinine measurement Serum Creatin ine [facility] Start: 10-31-2024 Hepatitis B surface antibody level LDL Cholesterol [facility] Start: 10-29-2024 End: 10-29-2024 Patient encounter procedure 10/29/2024 3:40 PM EST Office Visit Cardiology [address] [place] [address] [place] [address] [place] [address] 6 month follow up Cardiology Comment on above: 6 month follow up Start: 10-14-2024 Advance Directive Discussion Advance Directive Discussion [facility] Start: 10-12-2024 [facility]ABET[facility]CREEN [facility] Start: 06-14-2024 Covid-19 Vaccine () Covid-19 Vaccine () [facility] Start: 06-14-2024 Influenza vaccination [facility] Start: 04-30-2024 End: 04-30-2024 Patient encounter procedure 04/30/2024 3:40 PM EDT Office Visit Cardiology [address] [place] [address] [place] [address] [place] [address] Return in about 6 months (around 04/30/2024). Cardiology Comment on above: Return in about 6 mo nths (around 04/30/2024). Start: 04-30-2024 End: 07-30-2024 CBC panel - Blood by Automated count COMPLETE BLOOD COUNT Lab Routine Coronary artery disease involving [place] coronary artery of [place] heart without angina pectoris Expected: 04/30/2024, Expires: 07/30/2024 [facility] Comment on above: Expected: 04/30/2024 , Expires: 07/30/2024 Start: 04-30-2024 End: 07-30-2024 Comprehensive metabolic 2000 panel - Serum or Plasma COMPREHENSIVE METABOLIC PANEL Lab Routine Coronary artery disease involving [place] coronary artery of [place] heart without angina pectoris Expected: 04/30/2024, Expires: 07/30/2024 [facility] Comment on above: Expected: 04/30/2024 , Expires: 07/30/2024 Start: 04-30-2024 End: 07-30-2024 LIPID PANEL, NONFASTING LIPID PANEL, NONFASTING Lab Routine Coronary artery disease involving [place] coronary artery of [place] heart without angina pectoris Expected: 04/30/2024, Expires: 07/30/2024 [facility] Comment on above: Expected: 04/30/2024 , Expires: 07/30/2024 Start: 10-14-2023 Advance Directive Discussion Advance Directive Discussion [facility] Start: 10-14-2023 Behavioral Health Screening Behavioral Health Screening [facility] Start: 10-14-2023 Depression Assessment Depression Ass essment [facility] Start: 2023 BP CONTROLLED (<130/80) BP CONTROLLE D (<130/80) [facility] Start: 06-14-2023 Covid-19 Vaccine () Covid-19 Vaccine () [facility] Start: 06-14-2023 Influenza vaccination [facility] Start: 05-02-2023 End: 07-02-2023 CBC panel - Blood by Automated count CBC Lab Routine Primary hypertension Coronary artery disease involving [place] coronary artery of [place] heart without angina pectoris PAD (peripheral artery disease) (HCC) Expected: 05/02/2023, Expires: 07/02/2023 [facility] Work Phone: Comment on above: Expected: 05/02/2023 , Expires: 07/02/2023 Start: 05-02-2023 End: 07-02-2023 Comprehensive metabolic 2000 panel - Serum or Plasma COMP METABOLIC PANEL Lab Routine Primary hypertension Coronary artery disease involving [place] coronary artery of [place] heart without angina pectoris PAD (peripheral artery disease) (HCC) Expected: 05/02/2023, Expires: 07/02/2023 [facility] Work Phone: Comment on above: Expected: 05/02/2023 , Expires: 07/02/2023 Start: 05-02-2023 End: 07-02-2023 Lipid 1996 panel - Serum or Plasma LIPID PANEL BASIC Lab Routine Primary hypertension Coronary artery disease involving [place] coronary artery of [place] heart without angina pectoris PAD (peripheral artery disease) (HCC) Expected: 05/02/2023, Expires: 07/02/2023 [facility] Work Phone: Comment on above: Expected: 05/02/2023 , Expires: 07/02/2023 Start: 01-20-2023 End: 03-22-2023 CBC panel - Blood by Automated count CBC Lab Routine Coronary artery disease involving [place] coronary artery of [place] heart without angina pectoris Expected: 01/20/2023 (Approximate), Expires: 03/22/2023 [facility] Work Phone: Comment on above: Expected: 01/20/2023 (Approximate), Expires: 03/22/2023 Start: 01-20-2023 End: 03-22-2023 Comprehensive metabolic 2000 panel - Serum or Plasma COMP METABOLIC PANEL Lab Routine Coronary artery disease involving [place] coronary artery of [place] heart without angina pectoris Expected: 01/20/2023 (Approximate), Expires: 03/22/2023 [facility] Work Phone: Comment on above: Expected: 01/20/2023 (Approximate), Expires: 03/22/2023 Start: 01-20-2023 End: 03-22-2023 Lipid 1996 panel - Serum or Plasma LIPID PANEL BASIC Lab Routine Coronary artery disease involving [place] coronary artery of [place] heart without angina pectoris Expected: 01/20/2023 (Approximate), Expires: 03/22/2023 [facility] Work Phone: Comment on above: Expected: 01/20/2023 (Approximate), Expires: 03/22/2023 Start: 10-14-2022 ADVANCE DIRECTIVE DISCUSSION ADVANCE DIRECTIVE DISCUSSION [facility] Start: 10-14-2022 [facility] Start: 10-12-2022 HEMOGLOBIN/HEMATOCRIT HEMOGLOBIN/HEM ATOCRIT [facility] Start: 10-12-2022 Hepatitis B surface antibody level LDL CHOLESTEROL [facility] Start: 10-12-2022 SERUM CREATININE SERUM CREATININE [facility] Start: 07-18-2022 End: 09-17-2022 Basic metabolic 2000 panel - Serum or Plasma BASIC METABOLIC PNL Lab Routine Encounter for monitoring sotalol therapy Expected: 07/18/2022 (Approximate), Expires: 09/17/2022 [facility] Work Phone: Comment on above: Expected: 07/18/2022 (Approximate), Expires: 09/17/2022 Start: 06-14-2022 Influenza vaccination [facility] Start: 10-14-2021 ADVANCE DIRECTIVE DISCUSSION ADVANCE DIRECTIVE DISCUSSION [facility] Start: 10-14-2021 DEPRESSION ASSESSMENT DEPRESSION ASS ESSMENT [facility] Start: 11-09-2020 ANNUAL PCP TEAM [employer] GAURI DISEASE VISIT ANNUAL PCP TEAM CHRONIC DISEASE VISIT [facility] Start: 11-06-2020 Adult depression scr eening assessment DEPRESSION SCREENING [facility] Start: 2020 BONE DENSITY BONE DENSITY [facility] Start: 2020 PNEUMOVAX AGE 65 AND OVER WITH 5YR LOOKBACK (#1) PNEUMOVAX AGE 65 AND OVER WITH 5YR LOOKBACK (#1) [facility] Start: 2020 Screening for osteoporosis Bone Dens ity Screening [facility] Start: 07-14-2020 Medicare Annual Well ness Visit Medicare Annual Wellness Visit [facility] Start: 05-22-2017 Mammography MAMMOGRAM [facility] Start: 05-22-2017 Screening for malign ant neoplasm of breast Mammogram Screening [facility] Start: 2015 RSV Vaccine (1 - 1-d ose 60+ series) RSV Vaccine (1 - 1-dose 60+ series) [facility] Start: 2015 RSV Vaccine (1 - Ris k 60-74 years 1-dose series) RSV Vaccine (1 - Risk 60-74 years 1-dose series) [facility] Start: 2005 SHINGRIX VACCINE (1 of 2) MARTINEZ GRIX VACCINE (1 of 2) [facility] Start: 2000 COLOGUARD (FIT-DNA) COLOGUARD (FIT-D NA) [facility] Start: 2000 Colonoscopy COLONOSCOPY [facility] Start: 2000 COLORECTAL CANCER SCREENING COLORECTAL CANCER SCREENING [facility] Start: [address] COLONOGRAPHY [facility] Start: 2000 FECAL OCCULT BLOOD FECAL OCCULT BLOO D [facility] Start: 2000 Screening for malign ant neoplasm of colon [facility] Start: 2000 SIGMOIDOSCOPY SIGMOIDOSCOPY [facility] Start: 1974 Pneumococcal Vaccine : 50+ (1 of 2 - PCV) Pneumococcal Vaccine: 50+ (1 of 2 - PCV) [facility] Start: 1974 Urine microalbumin profile [facility] Start: 1973 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 Disease Visit Annual PCP Team Chronic Disease Visit [facility] Start: 1973 Anxiety Screening Anxiety Screening [facility] Start: 1973 BP CONTROLLED (<130/80) BP CONTROLLE D (<130/80) [facility] Start: 1973 Depression Screening Depression Scre ening [facility] Start: 1961 Pneumococcal Vaccine : 65+ (1 of 2 - PCV) Pneumococcal Vaccine: 65+ (1 of 2 - PCV) [facility] Start: 1961 PNEUMOCOCCAL: 65+ (1 - PCV) PNEUMOCOCCAL: 65+ (1 - PCV) [facility] Start: 1960 COVID-19 VACCINE (#1) COVID-19 VACCI NE (#1) [facility] Start: 1960 COVID-19 VACCINE (1) COVID-19 VACCIN E (1) [facility] Start: 01-23-1956 COVID-19 VACCINE (#1) COVID-19 VACCI NE (#1) [facility] End: 03-18-2026 Basic metabolic 2000 panel - Serum or Plasma BASIC METABOLIC PANEL Lab Routine Primary hypertension Coronary artery disease involving [place] coronary artery of [place] heart without angina pectoris PAD (peripheral artery disease) Every 6 months for 4 Occurrences starting 03/18/2025 until 03/18/2026 [facility] Work Phone: Comment on above: Every 6 months for 4 Occurrences starting 03/18/2025 until 03/18/2026 End: 01-16-2023 ECG COMPLETE ECG COMPLETE ECG Routine Coronary artery disease involving [place] coronary artery of [place] heart without angina pectoris Encounter for monitoring sotalol therapy 1 Occurrences starting 01/16/2022 until 01/16/2023 [facility] Work Phone: Comment on above: 1 Occurrences starti ng 01/16/2022 until 01/16/2023 End: 2023 ECG COMPLETE ECG COMPLETE ECG Routine Coronary artery disease involving [place] coronary artery of [place] heart without angina pectoris 1 Occurrences starting 2022 until 2023 [facility] Work Phone: Comment on above: 1 Occurrences starti ng 2022 until 2023 ECG COMPLETE ECG COMPLETE ECG Routine Coronary artery disease involving [place] coronary artery of [place] heart without angina pectoris Ordered: 04/30/2024 [facility] Work Phone: Comment on above: Ordered: 04/30/2024 End: 2023 Echocardiography ECHO Cardiology Routine Coronary artery disease involving [place] coronary artery of [place] heart without angina pectoris History of ME (myocardial infarction) December 2008 1 Occurrences starting 2022 until 2023 [facility] Work Phone: Comment on above: 1 Occurrences starti ng 2022 until 2023 End: 04-30-2025 Echocardiography ECHO Cardiology Routine History of ME (myocardial infarction) December 2008 s/p PCI with JIM to the LAD 12/2008 1 Occurrences starting 04/30/2024 until 04/30/2025 [facility] Comment on above: 1 Occurrences starti ng 04/30/2024 until 04/30/2025 End: 03-18-2026 Magnesium [Mass/volume] in Serum or Plasma MAGNESIUM Lab Routine Primary hypertension Coronary artery disease involving [place] coronary artery of [place] heart without angina pectoris PAD (peripheral artery disease) Every 6 months for 4 Occurrences starting 03/18/2025 until 03/18/2026 [facility] Comment on above: Every 6 months for 4 Occurrences starting 03/18/2025 until 03/18/2026 End: 05-11-2023 Screening mammography bi 2-view breast inc cad KINJAL SCREENING Radiology Routine Encounter for screening mammogram for breast cancer 1 Occurrences starting 04/11/2022 until 05/11/2023 [facility] Work Phone: Comment on above: 1 Occurrences starti ng 04/11/2022 until 05/11/2023 [facility] Payers Date Payer Category Payer Private Health Insurance [facility] [place] [address] [id number] 2024 Unknown [facility] MEDICARE SUPPLEMENT [id number] 2024-Present [phone] [address] [place] [address] Indemnity [id number] 2024 Medicare [id number] 2021 Medicaid [facility] MEDICAID [id number] 2021-Present [phone] [address] [place] [address] Medicaid [id number] 2021 Medicare [id number] 2020 Medicare [id number] 2020 Medicare [id number] Social History Date Type Detail Facility Start: 01-06-2015 End: 11-10-2024 Tobacco smoking status [facility] Smokes tobacco daily [facility] History of tobacco use Cigarette Smoker [facility] Start: 01-16-2022 End: 11-10-2024 Alcohol intake Current non-drinker of alcohol (finding) [facility] Start: 11-07-2019 End: 11-09-2019 History SDOH Alcohol Frequency 1 [facility] Start: 11-07-2019 End: 11-09-2019 History SDOH Alcohol Std Drinks 98 [facility] Start: 11-07-2019 History SDOH Social Connections Phone 5 [facility] Start: 11-07-2019 History SDOH Social Connections Get Together 2 [facility] Start: 11-07-2019 History SDOH Social Connections Living 8 [facility] Start: 11-06-2019 Education 14 [facility] Start: 1955 Sex Assigned At Not on file [facility] Start: 01-06-2022 End: 2022 Exposure to SARS-CoV-2 (event) Not sure [facility] Start: 01-06-2015 End: 10-31-2023 Cigarettes smoked current (pack per day) - Reported 0.5 [facility] Start: 01-06-2015 End: 11-10-2024 Tobacco use and exposure Smokeless tobacco non-user [facility] Start: 2022 End: 10-31-2023 Tobacco use panel [facility] National Score (1-10 0), lower number is lower risk 59 [facility] Work Phone: Do you belong to any clubs or organizations such as religion groups, unions, fraternal or athletic groups, or school groups? No [facility] Are you now , , , , never or living with a partner? Living with partner [facility] How often to you hav e a drink containing alcohol? Never [facility] Work Phone: Do you feel stress - tense, restless, nervous, or anxious, or unable to sleep at night because your mind is troubled all the time - these days [OSQ] Not at all [facility] (I/We) worried wheenriqueta er (my/our) food would run out before (I/we) got money to buy more. Never true [facility] Functional Status Date Assessment Result Facility 10-15-2016 Are you deaf, or do you have serious difficulty hearing No 10/15/2016 2:32 PM Aida Gallardo, KNITTER MACHINE.JIMMY No [facility] Work Phone: 10-15-2016 Are you blind, or do you have serious difficulty seeing, even when wearing glasses No 10/15/2016 2:32 PM Aida Gallardo, KNITTER MACHINE.JIMMY No [facility] 10-15-2016 Do you have serious difficulty walking or climbing stairs No 10/15/2016 2:32 PM Aida Gallardo, KNITTER MACHINE.JIMMY No [facility] 10-15-2016 Do you have difficul ty dressing or bathing No 10/15/2016 2:32 PM Aida Gallardo, KNITTER MACHINE.JIMMY No [facility] 10-15-2016 Because of a physica l, mental, or emotional condition, do you have difficulty doing errands alone such as visiting a physician's office or shopping No 10/15/2016 2:32 PM Aida Gallardo, KNITTER MACHINE.WEDDING FLORIST No [facility] Mental Status Date Assessment Result Facility 10-15-2016 Because of a physica l, mental, or emotional condition, do you have serious difficulty concentrating, remembering, or making decisions No 10/15/2016 2:32 PM Aida Gallardo, KNITTER MACHINE.[employer] No [facility] Clinical Notes 12-12-2008 to 04-12-2025 Telephone Encounter - Batsheva Israel RN - 04/12/2025 9:38 AM EDTTelephone Encounter - Batsheva Israel RN - 04/12/2025 9:38 AM EDTTelephone Encounter - Loreta Blevins RN - 04/05/2025 4:24 PM EDT Note Date & Type Note Facility 04-12-2025 Telephone encounter Note Patient has been identified by name and date of : Yes Pharmacy electronically sent a request for the following prescription(s) If there are any questions regarding this prescription request, call at: [phone] (home) [phone] (cell) RX INSTRUCTIONS: Pharmacy initiated this request. No need to notify patient. Date of last office visit: 04/30/24 Date of last [facility] Health visit: Visit date not found Date of future office visit: 09/21/25 Requested Prescriptions Pending Prescriptions Disp Refills lisinopril (ZESTRIL) 40 mg tablet [Pharmacy Med Name: LISINOPRIL 40 MG TABLET] 90 tablet 1 Sig: Take 1 tablet by mouth once daily. Prescriptions are usually addressed within 24-48 business hours. If patient states they cannot wait 24-48 business hours, please document details. Last 2 Encounter Wt Readings: Date: Wt: 11/10/2024 75.9 kg (167 lb 5.3 oz) 04/30/2024 82.6 kg (182 lb) Last 2 Encounter BP Readings: Date: BP: 11/10/2024 128/80 04/30/2024 134/78 CMP: Glucose 139 10/31/2023 BUN 29 10/31/2023 Creatinine 2.28 10/31/2023 Sodium 140 10/31/2023 Potassium 5.4 10/31/2023 Chloride 108 10/31/2023 CO2 17 10/31/2023 Protein, Total 7.4 10/31/2023 Albumin 4.2 10/31/2023 Calcium 9.5 10/31/2023 Alkaline Phosphatase 371 10/31/2023 Bilirubin, Total 0.4 10/31/2023 AST 19 10/31/2023 ALT 14 10/31/2023 Cholesterol, Total (mg/dL) Date Value 10/12/2021 158 12/12/2018 151 Total Cholesterol, Nonfasting (mg/dL) Date Value 10/31/2023 145 HDL Cholesterol (mg/dL) Date Value 10/12/2021 44 12/12/2018 39 HDL Cholesterol, Nonfasting (mg/dL) Date Value 10/31/2023 37 LDL Cholesterol, Calculated (mg/dL) Date Value 10/12/2021 87 12/12/2018 85 LDL Cholesterol Calculated, Nonfasting (mg/dL) Date Value 10/31/2023 86 Triglyceride (mg/dL) Date Value 10/12/2021 137 12/12/2018 133 Triglycerides, Nonfasting (mg/dL) Date Value 10/31/2023 108 Batsheva Israel RN [facility] 04-12-2025 Miscellaneous Notes Patient has been identified by name and date of : Yes Pharmacy electronically sent a request for the following prescription(s) If there are any questions regarding this prescription request, call at: [phone] (home) [phone] (cell) RX INSTRUCTIONS: Pharmacy initiated this request. No need to notify patient. Date of last office visit: 04/30/24 Date of last [facility] Health visit: Visit date not found Date of future office visit: 09/21/25 Requested Prescriptions Pending Prescriptions Disp Refills lisinopril (ZESTRIL) 40 mg tablet [Pharmacy Med Name: LISINOPRIL 40 MG TABLET] 90 tablet 1 Sig: Take 1 tablet by mouth once daily. Prescriptions are usually addressed within 24-48 business hours. If patient states they cannot wait 24-48 business hours, please document details. Last 2 Encounter Wt Readings: Date: Wt: 11/10/2024 75.9 kg (167 lb 5.3 oz) 04/30/2024 82.6 kg (182 lb) Last 2 Encounter BP Readings: Date: BP: 11/10/2024 128/80 04/30/2024 134/78 CMP: Glucose 139 10/31/2023 BUN 29 10/31/2023 Creatinine 2.28 10/31/2023 Sodium 140 10/31/2023 Potassium 5.4 10/31/2023 Chloride 108 10/31/2023 CO2 17 10/31/2023 Protein, Total 7.4 10/31/2023 Albumin 4.2 10/31/2023 Calcium 9.5 10/31/2023 Alkaline Phosphatase 371 10/31/2023 Bilirubin, Total 0.4 10/31/2023 AST 19 10/31/2023 ALT 14 10/31/2023 Cholesterol, Total (mg/dL) Date Value 10/12/2021 158 12/12/2018 151 Total Cholesterol, Nonfasting (mg/dL) Date Value 10/31/2023 145 HDL Cholesterol (mg/dL) Date Value 10/12/2021 44 12/12/2018 39 HDL Cholesterol, Nonfasting (mg/dL) Date Value 10/31/2023 37 LDL Cholesterol, Calculated (mg/dL) Date Value 10/12/2021 87 12/12/2018 85 LDL Cholesterol Calculated, Nonfasting (mg/dL) Date Value 10/31/2023 86 Triglyceride (mg/dL) Date Value 10/12/2021 137 12/12/2018 133 Triglycerides, Nonfasting (mg/dL) Date Value 10/31/2023 108 Batsheva Israel RN documented in this encounter [facility] 04-05-2025 Telephone encounter Note Patient has been identified by name and date of : Yes Pharmacy electronically sent a request for the following prescription(s) If there are any questions regarding this prescription request, call at: [phone] (home) [phone] (cell) RX INSTRUCTIONS: Pharmacy initiated this request. No need to notify patient. Date of last office visit: 04/30/24 Date of last [facility] Health visit: Visit date not found Date of future office visit: 09/21/25 Requested Prescriptions Pending Prescriptions Disp Refills isosorbide mononitrate ER (IMDUR) 30 mg 24 hr tablet [Pharmacy Med Name: ISOSORBIDE MONONIT ER 30 MG TB] 90 tablet 3 Sig: Take 1 tablet by mouth once daily. Prescriptions are usually addressed within 24-48 business hours. If patient states they cannot wait 24-48 business hours, please document details. Last 2 Encounter Wt Readings: Date: Wt: 11/10/2024 75.9 kg (167 lb 5.3 oz) 04/30/2024 82.6 kg (182 lb) Last 2 Encounter BP Readings: Date: BP: 11/10/2024 128/80 04/30/2024 134/78 CMP: Glucose 139 10/31/2023 BUN 29 10/31/2023 Creatinine 2.28 10/31/2023 Sodium 140 10/31/2023 Potassium 5.4 10/31/2023 Chloride 108 10/31/2023 CO2 17 10/31/2023 Protein, Total 7.4 10/31/2023 Albumin 4.2 10/31/2023 Calcium 9.5 10/31/2023 Alkaline Phosphatase 371 10/31/2023 Bilirubin, Total 0.4 10/31/2023 AST 19 10/31/2023 ALT 14 10/31/2023 Cholesterol, Total (mg/dL) Date Value 10/12/2021 158 12/12/2018 151 Total Cholesterol, Nonfasting (mg/dL) Date Value 10/31/2023 145 HDL Cholesterol (mg/dL) Date Value 10/12/2021 44 12/12/2018 39 HDL Cholesterol, Nonfasting (mg/dL) Date Value 10/31/2023 37 LDL Cholesterol, Calculated (mg/dL) Date Value 10/12/2021 87 12/12/2018 85 LDL Cholesterol Calculated, Nonfasting (mg/dL) Date Value 10/31/2023 86 Triglyceride (mg/dL) Date Value 10/12/2021 137 12/12/2018 133 Triglycerides, Nonfasting (mg/dL) Date Value 10/31/2023 108 Loreta Blevnis RN [facility] 04-05-2025 Miscellaneous Notes Patient has been identified by name and date of : Yes Pharmacy electronically sent a request for the following prescription(s) If there are any questions regarding this prescription request, call at: [phone] (home) [phone] (cell) RX INSTRUCTIONS: Pharmacy initiated this request. No need to notify patient. Date of last office visit: 04/30/24 Date of last [facility] Health visit: Visit date not found Date of future office visit: 09/21/25 Requested Prescriptions Pending Prescriptions Disp Refills isosorbide mononitrate ER (IMDUR) 30 mg 24 hr tablet [Pharmacy Med Name: ISOSORBIDE MONONIT ER 30 MG TB] 90 tablet 3 Sig: Take 1 tablet by mouth once daily. Prescriptions are usually addressed within 24-48 business hours. If patient states they cannot wait 24-48 business hours, please document details. Last 2 Encounter Wt Readings: Date: Wt: 11/10/2024 75.9 kg (167 lb 5.3 oz) 04/30/2024 82.6 kg (182 lb) Last 2 Encounter BP Readings: Date: BP: 11/10/2024 128/80 04/30/2024 134/78 CMP: Glucose 139 10/31/2023 BUN 29 10/31/2023 Creatinine 2.28 10/31/2023 Sodium 140 10/31/2023 Potassium 5.4 10/31/2023 Chloride 108 10/31/2023 CO2 17 10/31/2023 Protein, Total 7.4 10/31/2023 Albumin 4.2 10/31/2023 Calcium 9.5 10/31/2023 Alkaline Phosphatase 371 10/31/2023 Bilirubin, Total 0.4 10/31/2023 AST 19 10/31/2023 ALT 14 10/31/2023 Cholesterol, Total (mg/dL) Date Value 10/12/2021 158 12/12/2018 151 Total Cholesterol, Nonfasting (mg/dL) Date Value 10/31/2023 145 HDL Cholesterol (mg/dL) Date Value 10/12/2021 44 12/12/2018 39 HDL Cholesterol, Nonfasting (mg/dL) Date Value 10/31/2023 37 LDL Cholesterol, Calculated (mg/dL) Date Value 10/12/2021 87 12/12/2018 85 LDL Cholesterol Calculated, Nonfasting (mg/dL) Date Value 10/31/2023 86 Triglyceride (mg/dL) Date Value 10/12/2021 137 12/12/2018 133 Triglycerides, Nonfasting (mg/dL) Date Value 10/31/2023 108 Loreta Blevins RN documented in this encounter [facility] 03-18-2025 Telephone encounter Note Patient has been identified by name and date of : Yes Pharmacy electronically sent a request for the following prescription(s) If there are any questions regarding this prescription request, call at: [phone] (home) [phone] (cell) RX INSTRUCTIONS: Pharmacy initiated this request. No need to notify patient. Date of last office visit: 04/30/24 Date of last [facility] Health visit: Visit date not found Date of future office visit: 09/21/25 Requested Prescriptions Pending Prescriptions Disp Refills amLODIPine (NORVASC) 5 mg tablet [Pharmacy Med Name: AMLODIPINE BESYLATE 5 MG TAB] 90 tablet 3 Sig: Take 1 tablet by mouth once daily. rosuvastatin (CRESTOR) 40 mg tablet 90 tablet 3 Sig: Take 1 tablet by mouth every afternoon. sotalol (BETAPACE) 80 mg tablet 90 tablet 0 Sig: Take 0.5 tablets by mouth two times a day. Prescriptions are usually addressed within 24-48 business hours. If patient states they cannot wait 24-48 business hours, please document details. Last 2 Encounter Wt Readings: Date: Wt: 11/10/2024 75.9 kg (167 lb 5.3 oz) 04/30/2024 82.6 kg (182 lb) Last 2 Encounter BP Readings: Date: BP: 11/10/2024 128/80 04/30/2024 134/78 CMP: Glucose 139 10/31/2023 BUN 29 10/31/2023 Creatinine 2.28 10/31/2023 Sodium 140 10/31/2023 Potassium 5.4 10/31/2023 Chloride 108 10/31/2023 CO2 17 10/31/2023 Protein, Total 7.4 10/31/2023 Albumin 4.2 10/31/2023 Calcium 9.5 10/31/2023 Alkaline Phosphatase 371 10/31/2023 Bilirubin, Total 0.4 10/31/2023 AST 19 10/31/2023 ALT 14 10/31/2023 Cholesterol, Total (mg/dL) Date Value 10/12/2021 158 12/12/2018 151 Total Cholesterol, Nonfasting (mg/dL) Date Value 10/31/2023 145 HDL Cholesterol (mg/dL) Date Value 10/12/2021 44 12/12/2018 39 HDL Cholesterol, Nonfasting (mg/dL) Date Value 10/31/2023 37 LDL Cholesterol, Calculated (mg/dL) Date Value 10/12/2021 87 12/12/2018 85 LDL Cholesterol Calculated, Nonfasting (mg/dL) Date Value 10/31/2023 86 Triglyceride (mg/dL) Date Value 10/12/2021 137 12/12/2018 133 Triglycerides, Nonfasting (mg/dL) Date Value 10/31/2023 108 Batsheva Israel RN [facility] 03-18-2025 Miscellaneous Notes Patient has been identified by name and date of : Yes Pharmacy electronically sent a request for the following prescription(s) If there are any questions regarding this prescription request, call at: [phone] (home) [phone] (cell) RX INSTRUCTIONS: Pharmacy initiated this request. No need to notify patient. Date of last office visit: 04/30/24 Date of last [facility] Health visit: Visit date not found Date of future office visit: 09/21/25 Requested Prescriptions Pending Prescriptions Disp Refills amLODIPine (NORVASC) 5 mg tablet [Pharmacy Med Name: AMLODIPINE BESYLATE 5 MG TAB] 90 tablet 3 Sig: Take 1 tablet by mouth once daily. rosuvastatin (CRESTOR) 40 mg tablet 90 tablet 3 Sig: Take 1 tablet by mouth every afternoon. sotalol (BETAPACE) 80 mg tablet 90 tablet 0 Sig: Take 0.5 tablets by mouth two times a day. Prescriptions are usually addressed within 24-48 business hours. If patient states they cannot wait 24-48 business hours, please document details. Last 2 Encounter Wt Readings: Date: Wt: 11/10/2024 75.9 kg (167 lb 5.3 oz) 04/30/2024 82.6 kg (182 lb) Last 2 Encounter BP Readings: Date: BP: 11/10/2024 128/80 04/30/2024 134/78 CMP: Glucose 139 10/31/2023 BUN 29 10/31/2023 Creatinine 2.28 10/31/2023 Sodium 140 10/31/2023 Potassium 5.4 10/31/2023 Chloride 108 10/31/2023 CO2 17 10/31/2023 Protein, Total 7.4 10/31/2023 Albumin 4.2 10/31/2023 Calcium 9.5 10/31/2023 Alkaline Phosphatase 371 10/31/2023 Bilirubin, Total 0.4 10/31/2023 AST 19 10/31/2023 ALT 14 10/31/2023 Cholesterol, Total (mg/dL) Date Value 10/12/2021 158 12/12/2018 151 Total Cholesterol, Nonfasting (mg/dL) Date Value 10/31/2023 145 HDL Cholesterol (mg/dL) Date Value 10/12/2021 44 12/12/2018 39 HDL Cholesterol, Nonfasting (mg/dL) Date Value 10/31/2023 37 LDL Cholesterol, Calculated (mg/dL) Date Value 10/12/2021 87 12/12/2018 85 LDL Cholesterol Calculated, Nonfasting (mg/dL) Date Value 10/31/2023 86 Triglyceride (mg/dL) Date Value 10/12/2021 137 12/12/2018 133 Triglycerides, Nonfasting (mg/dL) Date Value 10/31/2023 108 Batsheva Israel RN documented in this encounter [facility] 12-14-2024 Telephone encounter Note The following approved medication requests have been transmitted electronically. Requested Prescriptions Signed Prescriptions Disp Refills rivaroxaban (XARELTO) 20 mg tablet 90 tablet 3 Sig: Take 1 tablet by mouth once daily. Authorizing Provider: JHONNY MEDEL Ordering User: KIRK ROMERO APRN.CNP [facility] 12-14-2024 Miscellaneous Notes The following approved medication requests have been transmitted electronically. Requested Prescriptions Signed Prescriptions Disp Refills rivaroxaban (XARELTO) 20 mg tablet 90 tablet 3 Sig: Take 1 tablet by mouth once daily. Authorizing Provider: JHONNY MEDEL Ordering User: KIRK ROMERO APRN.[employer] Patient has been identified by name and date of : Yes Patient electronically sent a request for the following prescription(s) If there are any questions regarding this prescription request, call at: [phone] (home) [phone] (cell) RX INSTRUCTIONS: Patient aware RX will be sent to pharmacy. No need to notify patient. Date of last office visit: 04/30/24 Date of last [facility] Health visit: Visit date not found Date of future office visit: 09/21/25 Requested Prescriptions Pending Prescriptions Disp Refills rivaroxaban (XARELTO) 20 mg tablet 90 tablet 3 Sig: Take 1 tablet by mouth once daily. Prescriptions are usually addressed within 24-48 business hours. If patient states they cannot wait 24-48 business hours, please document details. Last 2 Encounter Wt Readings: Date: Wt: 11/10/2024 75.9 kg (167 lb 5.3 oz) 04/30/2024 82.6 kg (182 lb) Last 2 Encounter BP Readings: Date: BP: 11/10/2024 128/80 04/30/2024 134/78 CMP: Glucose 139 10/31/2023 BUN 29 10/31/2023 Creatinine 2.28 10/31/2023 Sodium 140 10/31/2023 Potassium 5.4 10/31/2023 Chloride 108 10/31/2023 CO2 17 10/31/2023 Protein, Total 7.4 10/31/2023 Albumin 4.2 10/31/2023 Calcium 9.5 10/31/2023 Alkaline Phosphatase 371 10/31/2023 Bilirubin, Total 0.4 10/31/2023 AST 19 10/31/2023 ALT 14 10/31/2023 Cholesterol, Total (mg/dL) Date Value 10/12/2021 158 12/12/2018 151 Total Cholesterol, Nonfasting (mg/dL) Date Value 10/31/2023 145 HDL Cholesterol (mg/dL) Date Value 10/12/2021 44 12/12/2018 39 HDL Cholesterol, Nonfasting (mg/dL) Date Value 10/31/2023 37 LDL Cholesterol (mg/dL) Date Value 10/12/2021 87 12/12/2018 85 LDL Cholesterol, Nonfasting (mg/dL) Date Value 10/31/2023 86 Triglyceride (mg/dL) Date Value 10/12/2021 137 12/12/2018 133 Triglycerides, Nonfasting (mg/dL) Date Value 10/31/2023 108 Loreta Blevins RN documented in this encounter [facility] 12-14-2024 Telephone encounter Note Patient has been identified by name and date of : Yes Patient electronically sent a request for the following prescription(s) If there are any questions regarding this prescription request, call at: [phone] (home) [phone] (cell) RX INSTRUCTIONS: Patient aware RX will be sent to pharmacy. No need to notify patient. Date of last office visit: 04/30/24 Date of last [facility] Health visit: Visit date not found Date of future office visit: 09/21/25 Requested Prescriptions Pending Prescriptions Disp Refills rivaroxaban (XARELTO) 20 mg tablet 90 tablet 3 Sig: Take 1 tablet by mouth once daily. Prescriptions are usually addressed within 24-48 business hours. If patient states they cannot wait 24-48 business hours, please document details. Last 2 Encounter Wt Readings: Date: Wt: 11/10/2024 75.9 kg (167 lb 5.3 oz) 04/30/2024 82.6 kg (182 lb) Last 2 Encounter BP Readings: Date: BP: 11/10/2024 128/80 04/30/2024 134/78 CMP: Glucose 139 10/31/2023 BUN 29 10/31/2023 Creatinine 2.28 10/31/2023 Sodium 140 10/31/2023 Potassium 5.4 10/31/2023 Chloride 108 10/31/2023 CO2 17 10/31/2023 Protein, Total 7.4 10/31/2023 Albumin 4.2 10/31/2023 Calcium 9.5 10/31/2023 Alkaline Phosphatase 371 10/31/2023 Bilirubin, Total 0.4 10/31/2023 AST 19 10/31/2023 ALT 14 10/31/2023 Cholesterol, Total (mg/dL) Date Value 10/12/2021 158 12/12/2018 151 Total Cholesterol, Nonfasting (mg/dL) Date Value 10/31/2023 145 HDL Cholesterol (mg/dL) Date Value 10/12/2021 44 12/12/2018 39 HDL Cholesterol, Nonfasting (mg/dL) Date Value 10/31/2023 37 LDL Cholesterol (mg/dL) Date Value 10/12/2021 87 12/12/2018 85 LDL Cholesterol, Nonfasting (mg/dL) Date Value 10/31/2023 86 Triglyceride (mg/dL) Date Value 10/12/2021 137 12/12/2018 133 Triglycerides, Nonfasting (mg/dL) Date Value 10/31/2023 108 Loreta Blevins RN [facility] 11-10-2024 Note HNO ID: [id number] Author: MARIANA MELGAR PA-C Service: ? Author Type: Physician Linen Aide Type: Progress Notes Filed: 11/10/2024 12:09 Note Text: This note was created using Memetalesriter. Subjective Maria Teresa Quiroga is a 69 year old female. Patient is a 69-year-old female who is brought by caregiver for evaluation of worsening cough and shortness of breath that she has been experiencing for the past 2 weeks. Patient reports no congestion, sinus pressure, ear pain or sore throat. Patient has no history of asthma or COPD but does have an approximate [id number] history of tobacco use and continues to smoke approximately 1/2 pack cigarettes per day. Patient denies fever, chills or myalgia. Patient denies left chest pain, tightness or pressure. Patient has a substantial cardiovascular history yet continues to smoke. Cough Review of Systems Respiratory: Positive for cough. All other systems reviewed and are negative. Objective BP 128/80 Pulse 66 Temp 36.4 ?C (97.5 ?F) Resp 16 Wt 75.9 kg (167 lb 5.3 oz) SpO2 96% BMI 29.64 kg/m? Physical Exam Vitals and nursing note reviewed. Constitutional: Appearance: Normal appearance. She is normal weight. HENT: Head: Normocephalic and atraumatic. Right Ear: External ear normal. Left Ear: External ear normal. Nose: Nose normal. Mouth/Throat: Mouth: Mucous membranes are moist. Pharynx: Oropharynx is clear. Eyes: Extraocular Movements: Extraocular movements intact. Conjunctiva/sclera: Conjunctivae normal. Pupils: Pupils are equal, round, and reactive to light. Cardiovascular: Rate and Rhythm: Normal rate and regular rhythm. Pulses: Normal pulses. Heart sounds: Normal heart sounds. Pulmonary: Effort: Pulmonary effort is normal. Breath sounds: Normal breath sounds. Musculoskeletal: Cervical back: Normal range of motion and neck supple. Skin: General: Skin is warm and dry. Capillary Refill: Capillary refill takes less than 2 seconds. Neurological: General: No focal deficit present. Mental Status: She is alert and oriented to person, place, and time. Psychiatric: Mood and Affect: Mood normal. Behavior: Behavior normal. Thought Content: Thought content normal. Judgment: Judgment normal. Assessment and Plan Physical exam findings as noted above. Patient was provided with prescriptions for doxycycline 100 mg, Tessalon 100 mg and an albuterol MDI. Patient was very clearly instructed to report to an emergency department if she experiences worsening shortness of breath, dyspnea or other symptoms. Patient verbalizes clear understanding of the above instructions. CLINICAL IMPRESSION: Bronchitis; Persistent Cough; Tobacco Abuse ASSESSMENT/PLAN: 1. Persistent cough for 3 weeks or longer - ICD9: 786.2, ICD10: R05.3 (primary diagnosis) 2. Bronchitis - ICD9: 490, ICD10: J40 - ALBUTEROL SULFATE HFA 90 MCG/ACTUATION AEROSOL INHALER - INHALATIONAL SPACING DEVICE - BENZONATATE 100 MG CAPSULE 3. Tobacco abuse - ICD9: 305.1, ICD10: Z72.0 Mariana Melgar PA-C [facility] 11-10-2024 History of Present illness Narrative This note was created using NoteWriter. Subjective Maria Teresa Quiroga is a 69 year old female. Patient is a 69-year-old female who is brought by caregiver for evaluation of worsening cough and shortness of breath that she has been experiencing for the past 2 weeks. Patient reports no congestion, sinus pressure, ear pain or sore throat. Patient has no history of asthma or COPD but does have an approximate 64-[id number]-[id number] history of tobacco use and continues to smoke approximately 1/2 pack cigarettes per day. Patient denies fever, chills or myalgia. Patient denies left chest pain, tightness or pressure. Patient has a substantial cardiovascular history yet continues to smoke. Cough Review of Systems Respiratory: Positive for cough. All other systems reviewed and are negative. Objective BP 128/80 Pulse 66 Temp 36.4 C (97.5 F) Resp 16 Wt 75.9 kg (167 lb 5.3 oz) SpO2 96% BMI 29.64 kg/m Physical Exam Vitals and nursing note reviewed. Constitutional: Appearance: Normal appearance. She is normal weight. HENT: Head: Normocephalic and atraumatic. Right Ear: External ear normal. Left Ear: External ear normal. Nose: Nose normal. Mouth/Throat: Mouth: Mucous membranes are moist. Pharynx: Oropharynx is clear. Eyes: Extraocular Movements: Extraocular movements intact. Conjunctiva/sclera: Conjunctivae normal. Pupils: Pupils are equal, round, and reactive to light. Cardiovascular: Rate and Rhythm: Normal rate and regular rhythm. Pulses: Normal pulses. Heart sounds: Normal heart sounds. Pulmonary: Effort: Pulmonary effort is normal. Breath sounds: Normal breath sounds. Musculoskeletal: Cervical back: Normal range of motion and neck supple. Skin: General: Skin is warm and dry. Capillary Refill: Capillary refill takes less than 2 seconds. Neurological: General: No focal deficit present. Mental Status: She is alert and oriented to person, place, and time. Psychiatric: Mood and Affect: Mood normal. Behavior: Behavior normal. Thought Content: Thought content normal. Judgment: Judgment normal. Assessment and Plan Physical exam findings as noted above. Patient was provided with prescriptions for doxycycline 100 mg, Tessalon 100 mg and an albuterol MDI. Patient was very clearly instructed to report to an emergency department if she experiences worsening shortness of breath, dyspnea or other symptoms. Patient verbalizes clear understanding of the above instructions. CLINICAL IMPRESSION: Bronchitis; Persistent Cough; Tobacco Abuse ASSESSMENT/PLAN: 1. Persistent cough for 3 weeks or longer - ICD9: 786.2, ICD10: R05.3 (primary diagnosis) 2. Bronchitis - ICD9: 490, ICD10: J40 - ALBUTEROL SULFATE HFA 90 MCG/ACTUATION AEROSOL INHALER - INHALATIONAL SPACING DEVICE - BENZONATATE 100 MG CAPSULE 3. Tobacco abuse - ICD9: 305.1, ICD10: Z72.0 Mariana Melgar PA-C documented in this encounter [facility] 04-30-2024 Instructions Jhonny Medel MD - 04/30/2024 4:38 PM EDT You are doing very well from a heart standpoint No signs or symptoms of angina or heart failure No recent symptoms of atrial fibrillation No bleeding with anticoagulation medication Your blood pressure is well controlled on current medications LDL cholesterol is not quite at goal but you are reluctant to do an injectable PCSK9 inhibitor I would recommend: Continue same medications, including sotalol Have repeat non fasting blood work Schedule an echocardiogram (ultrasound of the heart) in [place] [phone] See me again in 6 months (Work on quitting smoking) documented in this encounter [facility] 04-30-2024 Note HNO ID: [id number] Author: JHONNY MEDEL MD Service: ? Author Type: Physician Type: Progress Notes Filed: 04/30/2024 16:39 Note Text: [facility] [place] [facility] Department of Cardiovascular Medicine SECTION OF CLINICAL CARDIOLOGY OUTPATIENT VISIT DATE April 30, 2024 OUTPATIENT VISIT TYPE ESTABLISHED PATIENT: Maria Teresa Quiroga DATE OF : 1955 DATE: 04/30/2024 INTERVAL HISTORY: Ms. Quiroga comes for a follow up visit for CAD, PAF on sotalol and Xarelto, HL, HTN. The last visit with me was 6 mos ago. She and Josh recently got ! She is doing well. She is down to less than half a pack of cigarettes. She quit for a week, and then she learned that her brother . ROS: Negative for cough, wheezing, shortness of breath and chest pain Negative for leg swelling, palpitations, claudication, orthopnea, paroxysmal nocturnal dyspnea, syncope. All other reviewed and negative other than HPI. CURRENT MEDICATIONS: rosuvastatin (CRESTOR) 40 mg tablet take 1 tablet by mouth every day isosorbide mononitrate ER (IMDUR) 30 mg 24 hr tablet take 1 tablet by mouth every day amLODIPine (NORVASC) 5 mg tablet take 1 tablet by mouth every day rivaroxaban (XARELTO) 20 mg tablet Take 1 tablet by mouth once daily. lisinopril (ZESTRIL) 40 mg tablet TAKE 1 TABLET BY MOUTH EVERY DAY sotalol (BETAPACE) 80 mg tablet TAKE 1/2 TABLET BY MOUTH TWICE A DAY aspirin, enteric coated (ECOTRIN LOW STRENGTH) 81 mg EC tablet Take 1 tablet by mouth once daily. PHYSICAL EXAMINATION: General: No distress, alert and oriented Vital signs: BP 134/78 Pulse 54 Ht 5' 3" (1.60m) Wt 182 lb (82.6kg) BMI 32.25 kg/(m2). Neck: no JVD Lungs: clear to auscultation Cardiac exam: RRR normal S1, S2 no murmurs Extremities: warm, well perfused, no edema EKG: sinus bradycardia and QT 466, lateral TWI - no change CARDIAC STUDIES: PVR February 2018 IMPRESSION RIGHT SIDE Resting right ankle brachial index: 0.96 Post exercise right ankle brachial index: 0.84 Borderline abnormal ankle brachial index at rest. Right ankle: Borderline abnormal at rest. Right small vessel disease versus vasoconstriction. Note drop in pressure and/or ankle-brachial index after exercise, consistent with peripheral artery disease. Unable to determine exact area of narrowing. LEFT SIDE Resting left ankle brachial index: 0.96 Post exercise left ankle brachial index: 0.81 Borderline abnormal ankle brachial index at rest. Left ankle: Borderline abnormal at rest. Left small vessel disease versus vasoconstriction. Note drop in pressure and/or ankle-brachial index after exercise, consistent with peripheral artery disease. Unable to determine exact area of narrowing. Technologist: Carmen Shaikh T Ordering physician: Liz Gonzalez Interpreting physician: PIYUSH Sharma DO echo 12/2014 CONCLUSIONS: - Exam indication: CAD/ME/AFib - The left ventricle is normal in size. Left ventricular systolic function is normal. EF = 55 ? 5% (visual est.) Baseline left ventricular diastolic function is consistent with abnormal relaxation (stage 1). - The right ventricle is normal in size. Right ventricular systolic function is normal. - There are no significant valvular abnormalities. - No prior echocardiographic exam available for comparison. LABS: Latest Ref Rng AND Units 12/12/2018 10/12/2021 10/31/2023 CMP Sodium 136 - 144 mmol/L 136 140 140 Potassium 3.7 - 5.1 mmol/L 4.8 4.6 5.4 Chloride 97 - 105 mmol/L 103 107 108 CO2 22 - 30 mmol/L 18 22 17 Glucose 74 - 99 mg/dL 94 87 139 BUN 7 - 21 mg/dL 36 23 29 Creatinine 0.58 - 0.96 mg/dL 2.04 1.61 2.28 EGFR >=60 mL/min/1.73m? 23 EGFR-All Other Races . 25 32 EGFR- 30 39 Protein, Total 6.3 - 8.0 g/dL 7.7 6.3 7.4 Albumin 3.9 - 4.9 g/dL 4.3 3.9 4.2 Calcium 8.5 - 10.2 mg/dL 9.8 9.4 9.5 Bilirubin, Total 0.2 - 1.3 mg/dL 0.4 0.4 0.4 AST 13 - 35 U/L 30 30 19 ALT 7 - 38 U/L 27 22 14 Alkaline Phosphatase 34 - 123 U/L 484 334 371 Hemoglobin (g/dL) Date Value 10/31/2023 12.7 10/12/2021 13.0 Hematocrit (%) Date Value 10/31/2023 41.9 10/12/2021 41.7 WBC (k/uL) Date Value 10/31/2023 13.61 10/12/2021 10.33 No results found for: "HBA1C" Cholesterol, Total (mg/dL) Date Value 10/12/2021 158 12/12/2018 151 Total Cholesterol, Nonfasting (mg/dL) Date Value 10/31/2023 145 HDL Cholesterol (mg/dL) Date Value 10/12/2021 44 12/12/2018 39 HDL Cholesterol, Nonfasting (mg/dL) Date Value 10/31/2023 37 LDL Cholesterol (mg/dL) Date Value 10/12/2021 87 12/12/2018 85 LDL Cholesterol, Nonfasting (mg/dL) Date Value 10/31/2023 86 Triglyceride (mg/dL) Date Value 10/12/2021 137 12/12/2018 133 Triglycerides, Nonfasting (mg/dL) Date Value 10/31/2023 108 TSH (uU/mL) Date Value 02 (more content not included)... [facility] 04-30-2024 History of Present illness Narrative Images from the original note were not included. [facility] [place] [facility] Department of Cardiovascular Medicine SECTION OF CLINICAL CARDIOLOGY OUTPATIENT VISIT DATE April 30, 2024 OUTPATIENT VISIT TYPE ESTABLISHED PATIENT: Maria Teresa Quiroga DATE OF : 1955 DATE: 04/30/2024 INTERVAL HISTORY: Ms. Quiroga comes for a follow up visit for CAD, PAF on sotalol and Xarelto, HL, HTN. The last visit with me was 6 mos ago. She and Josh recently got ! She is doing well. She is down to less than half a pack of cigarettes. She quit for a week, and then she learned that her brother . ROS: Negative for cough, wheezing, shortness of breath and chest pain Negative for leg swelling, palpitations, claudication, orthopnea, paroxysmal nocturnal dyspnea, syncope. All other reviewed and negative other than HPI. CURRENT MEDICATIONS: rosuvastatin (CRESTOR) 40 mg tablet take 1 tablet by mouth every day isosorbide mononitrate ER (IMDUR) 30 mg 24 hr tablet take 1 tablet by mouth every day amLODIPine (NORVASC) 5 mg tablet take 1 tablet by mouth every day rivaroxaban (XARELTO) 20 mg tablet Take 1 tablet by mouth once daily. lisinopril (ZESTRIL) 40 mg tablet TAKE 1 TABLET BY MOUTH EVERY DAY sotalol (BETAPACE) 80 mg tablet TAKE 1/2 TABLET BY MOUTH TWICE A DAY aspirin, enteric coated (ECOTRIN LOW STRENGTH) 81 mg EC tablet Take 1 tablet by mouth once daily. PHYSICAL EXAMINATION: General: No distress, alert and oriented Vital signs: BP 134/78 Pulse 54 Ht 5' 3" (1.60m) Wt 182 lb (82.6kg) BMI 32.25 kg/(m^2). Neck: no JVD Lungs: clear to auscultation Cardiac exam: RRR normal S1, S2 no murmurs Extremities: warm, well perfused, no edema EKG: sinus bradycardia and QT 466, lateral TWI - no change CARDIAC STUDIES: PVR February 2018 IMPRESSION RIGHT SIDE Resting right ankle brachial index: 0.96 Post exercise right ankle brachial index: 0.84 Borderline abnormal ankle brachial index at rest. Right ankle: Borderline abnormal at rest. Right small vessel disease versus vasoconstriction. Note drop in pressure and/or ankle-brachial index after exercise, consistent with peripheral artery disease. Unable to determine exact area of narrowing. LEFT SIDE Resting left ankle brachial index: 0.96 Post exercise left ankle brachial index: 0.81 Borderline abnormal ankle brachial index at rest. Left ankle: Borderline abnormal at rest. Left small vessel disease versus vasoconstriction. Note drop in pressure and/or ankle-brachial index after exercise, consistent with peripheral artery disease. Unable to determine exact area of narrowing. Technologist: Carmen Shaikh RVT Ordering physician: Liz Gonzalez Interpreting physician: PIYUSH Sharma DO echo 12/2014 CONCLUSIONS: - Exam indication: CAD/ME/AFib - The left ventricle is normal in size. Left ventricular systolic function is normal. EF = 55 5% (visual est.) Baseline left ventricular diastolic function is consistent with abnormal relaxation (stage 1). - The right ventricle is normal in size. Right ventricular systolic function is normal. - There are no significant valvular abnormalities. - No prior echocardiographic exam available for comparison. LABS: Latest Ref Rng & Units 12/12/2018 10/12/2021 10/31/2023 CMP Sodium 136 - 144 mmol/L 136 140 140 Potassium 3.7 - 5.1 mmol/L 4.8 4.6 5.4 Chloride 97 - 105 mmol/L 103 107 108 CO2 22 - 30 mmol/L 18 22 17 Glucose 74 - 99 mg/dL 94 87 139 BUN 7 - 21 mg/dL 36 23 29 Creatinine 0.58 - 0.96 mg/dL 2.04 1.61 2.28 EGFR >=60 mL/min/1.73m 23 EGFR-All Other Races . 25 32 EGFR- 30 39 Protein, Total 6.3 - 8.0 g/dL 7.7 6.3 7.4 Albumin 3.9 - 4.9 g/dL 4.3 3.9 4.2 Calcium 8.5 - 10.2 mg/dL 9.8 9.4 9.5 Bilirubin, Total 0.2 - 1.3 mg/dL 0.4 0.4 0.4 AST 13 - 35 U/L 30 30 19 ALT 7 - 38 U/L 27 22 14 Alkaline Phosphatase 34 - 123 U/L 484 334 371 Hemoglobin (g/dL) Date Value 10/31/2023 12.7 10/12/2021 13.0 Hematocrit (%) Date Value 10/31/2023 41.9 10/12/2021 41.7 WBC (k/uL) Date Value 10/31/2023 13.61 10/12/2021 10.33 No results found for: "HBA1C" Cholesterol, Total (mg/dL) Date Value 10/12/2021 158 12/12/2018 151 Total Cholesterol, Nonfasting (mg/dL) Date Value 10/31/2023 145 HDL Cholesterol (mg/dL) Date Value 10/12/2021 44 12/12/2018 39 HDL Cholesterol, Nonfasting (mg/dL) Date Value 10/31/2023 37 LDL Cholesterol (mg/dL) Date Value 10/12/2021 87 12/12/2018 85 LDL Cholesterol, Nonfasting (mg/dL) Date Value 10/31/2023 86 Triglyceride (mg/dL) Date Value 10/12/2021 137 12/12/2018 133 Triglycerides, Nonfasting (mg/dL) Date Value 10/31/2023 108 TSH (uU/mL) Date Value 12/04/2017 3.080 10/14/2016 3.230 NT Pro BNP Date Value Ref Range Status 10/14/2016 310 (H) <125 pg/mL Final 04/06/2015 195 (H) <125 pg/mL Final Impression: Encounter Diagnosis ICD-10-CM 1. Coronary artery disease involving [place] coronary artery of [place] heart without angina pectoris I25.10 2. History of ME (myocardial infarction) December 2008 I25.2 3. s/p PCI with JIM to the LAD 12/2008 Z95.5 4. PAD (peripheral artery disease) (HCC) I73.9 5. H/O aorto-femoral bypass for occluded aorta 2009 Z95.828 6. Paroxysmal atrial fibrillation (HCC) I48.0 7. Encounter for monitoring sotalol therapy Z51.81 Z79.899 8. Anticoagulated by anticoagulation treatment (Xarelto) Z79.01 9. Primary hypertension I10 10. Pure hypercholesterolemia E78.00 11. Tobacco abuse Z72.0 12. Stage 3a chronic kidney disease (HCC) N18.31 Plan: Patient Instructions You are doing very well from a heart standpoint No signs or symptoms of angina or heart failure No recent symptoms of atrial fibrillation No bleeding with anticoagulation medication Your blood pressure is well controlled on current medications LDL cholesterol is not quite at goal but you are reluctant to do an injectable PCSK9 inhibitor I would recommend: Continue same medications, including sotalol Have repeat non fasting blood work Schedule an echocardiogram (ultrasound of the heart) in [place] [phone] See me again in 6 months (Work on quitting smoking) Medical Decision Making: Problems: Moderate: 2+ stable chronic illnesses Risk: Moderate: Moderate risk from testing/treatment Medical Decision Making Level: 4 - Moderate Thank you very much for allowing me to assist in the care of Maria Teresa Quiroga. Please do not hesitate to contact me if you have questions or concerns. Jhonny Medel MD CC: Carlos Quiroz MD [address] [place] [id number] documented in this encounter [facility] 04-17-2024 Telephone encounter Note Patient has been identified by name and date of : Yes Patient phoned to request the following prescription(s) If there are any questions regarding this prescription request, call at home at: [phone] (home) [phone] (cell) RX INSTRUCTIONS: Patient aware RX will be sent to pharmacy. No need to notify patient. Date of last office visit: 10/31/23 Date of last Distance Health visit: Visit date not found Date of future office visit: 04/30/24 Requested Prescriptions Pending Prescriptions Disp Refills rosuvastatin (CRESTOR) 40 mg tablet [Pharmacy Med Name: ROSUVASTATIN CALCIUM 40 MG TAB] 90 tablet 3 Sig: take 1 tablet by mouth every day isosorbide mononitrate ER (IMDUR) 30 mg 24 hr tablet [Pharmacy Med Name: ISOSORBIDE MONONIT ER 30 MG TB] 90 tablet 3 Sig: take 1 tablet by mouth every day Prescriptions are usually addressed within 24-48 business hours. If patient states they cannot wait 24-48 business hours, please document details. Last 2 Encounter Wt Readings: Date: Wt: 10/31/2023 84.8 kg (187 lb) 2022 84.4 kg (186 lb) Last 2 Encounter BP Readings: Date: BP: 10/31/2023 130/80 2022 122/72 CMP: Glucose 139 10/31/2023 BUN 29 10/31/2023 Creatinine 2.28 10/31/2023 Sodium 140 10/31/2023 Potassium 5.4 10/31/2023 Chloride 108 10/31/2023 CO2 17 10/31/2023 Protein, Total 7.4 10/31/2023 Albumin 4.2 10/31/2023 Calcium 9.5 10/31/2023 Alkaline Phosphatase 371 10/31/2023 Bilirubin, Total 0.4 10/31/2023 AST 19 10/31/2023 ALT 14 10/31/2023 Cholesterol, Total (mg/dL) Date Value 10/12/2021 158 12/12/2018 151 Total Cholesterol, Nonfasting (mg/dL) Date Value 10/31/2023 145 HDL Cholesterol (mg/dL) Date Value 10/12/2021 44 12/12/2018 39 HDL Cholesterol, Nonfasting (mg/dL) Date Value 10/31/2023 37 LDL Cholesterol (mg/dL) Date Value 10/12/2021 87 12/12/2018 85 LDL Cholesterol, Nonfasting (mg/dL) Date Value 10/31/2023 86 Triglyceride (mg/dL) Date Value 10/12/2021 137 12/12/2018 133 Triglycerides, Nonfasting (mg/dL) Date Value 10/31/2023 108 Zahra George RN [facility] 04-17-2024 Miscellaneous Notes Patient has been identified by name and date of : Yes Patient phoned to request the following prescription(s) If there are any questions regarding this prescription request, call at home at: [phone] (home) [phone] (cell) RX INSTRUCTIONS: Patient aware RX will be sent to pharmacy. No need to notify patient. Date of last office visit: 10/31/23 Date of last [facility] Health visit: Visit date not found Date of future office visit: 04/30/24 Requested Prescriptions Pending Prescriptions Disp Refills rosuvastatin (CRESTOR) 40 mg tablet [Pharmacy Med Name: ROSUVASTATIN CALCIUM 40 MG TAB] 90 tablet 3 Sig: take 1 tablet by mouth every day isosorbide mononitrate ER (IMDUR) 30 mg 24 hr tablet [Pharmacy Med Name: ISOSORBIDE MONONIT ER 30 MG TB] 90 tablet 3 Sig: take 1 tablet by mouth every day Prescriptions are usually addressed within 24-48 business hours. If patient states they cannot wait 24-48 business hours, please document details. Last 2 Encounter Wt Readings: Date: Wt: 10/31/2023 84.8 kg (187 lb) 2022 84.4 kg (186 lb) Last 2 Encounter BP Readings: Date: BP: 10/31/2023 130/80 2022 122/72 CMP: Glucose 139 10/31/2023 BUN 29 10/31/2023 Creatinine 2.28 10/31/2023 Sodium 140 10/31/2023 Potassium 5.4 10/31/2023 Chloride 108 10/31/2023 CO2 17 10/31/2023 Protein, Total 7.4 10/31/2023 Albumin 4.2 10/31/2023 Calcium 9.5 10/31/2023 Alkaline Phosphatase 371 10/31/2023 Bilirubin, Total 0.4 10/31/2023 AST 19 10/31/2023 ALT 14 10/31/2023 Cholesterol, Total (mg/dL) Date Value 10/12/2021 158 12/12/2018 151 Total Cholesterol, Nonfasting (mg/dL) Date Value 10/31/2023 145 HDL Cholesterol (mg/dL) Date Value 10/12/2021 44 12/12/2018 39 HDL Cholesterol, Nonfasting (mg/dL) Date Value 10/31/2023 37 LDL Cholesterol (mg/dL) Date Value 10/12/2021 87 12/12/2018 85 LDL Cholesterol, Nonfasting (mg/dL) Date Value 10/31/2023 86 Triglyceride (mg/dL) Date Value 10/12/2021 137 12/12/2018 133 Triglycerides, Nonfasting (mg/dL) Date Value 10/31/2023 108 Zahra George RN documented in this encounter [facility] 03-30-2024 Telephone encounter Note The following approved medication requests have been transmitted electronically. Requested Prescriptions Signed Prescriptions Disp Refills amLODIPine (NORVASC) 5 mg tablet 90 tablet 3 Sig: take 1 tablet by mouth every day Authorizing Provider: GEOFFREY HARLEY Ordering User: KIRK ROMERO APRN.CNP [facility] 03-30-2024 Miscellaneous Notes The following approved medication requests have been transmitted electronically. Requested Prescriptions Signed Prescriptions Disp Refills amLODIPine (NORVASC) 5 mg tablet 90 tablet 3 Sig: take 1 tablet by mouth every day Authorizing Provider: GEOFFREY HARLEY Ordering User: KIRK ROMERO APRN.CNP Patient has been identified by name and date of : Yes Patient phoned to request the following prescription(s) If there are any questions regarding this prescription request, call at home at: [phone] (home) [phone] (cell) RX INSTRUCTIONS: Patient aware RX will be sent to pharmacy. No need to notify patient. Date of last office visit: 10/31/23 Date of last Distance Health visit: Visit date not found Date of future office visit: 04/30/24 Requested Prescriptions Pending Prescriptions Disp Refills amLODIPine (NORVASC) 5 mg tablet [Pharmacy Med Name: AMLODIPINE BESYLATE 5 MG TAB] 90 tablet 3 Sig: take 1 tablet by mouth every day Prescriptions are usually addressed within 24-48 business hours. If patient states they cannot wait 24-48 business hours, please document details. Last 2 Encounter Wt Readings: Date: Wt: 10/31/2023 84.8 kg (187 lb) 2022 84.4 kg (186 lb) Last 2 Encounter BP Readings: Date: BP: 10/31/2023 130/80 2022 122/72 CMP: Glucose 139 10/31/2023 BUN 29 10/31/2023 Creatinine 2.28 10/31/2023 Sodium 140 10/31/2023 Potassium 5.4 10/31/2023 Chloride 108 10/31/2023 CO2 17 10/31/2023 Protein, Total 7.4 10/31/2023 Albumin 4.2 10/31/2023 Calcium 9.5 10/31/2023 Alkaline Phosphatase 371 10/31/2023 Bilirubin, Total 0.4 10/31/2023 AST 19 10/31/2023 ALT 14 10/31/2023 Cholesterol, Total (mg/dL) Date Value 10/12/2021 158 12/12/2018 151 Total Cholesterol, Nonfasting (mg/dL) Date Value 10/31/2023 145 HDL Cholesterol (mg/dL) Date Value 10/12/2021 44 12/12/2018 39 HDL Cholesterol, Nonfasting (mg/dL) Date Value 10/31/2023 37 LDL Cholesterol (mg/dL) Date Value 10/12/2021 87 12/12/2018 85 LDL Cholesterol, Nonfasting (mg/dL) Date Value 10/31/2023 86 Triglyceride (mg/dL) Date Value 10/12/2021 137 12/12/2018 133 Triglycerides, Nonfasting (mg/dL) Date Value 10/31/2023 108 Zahra George RN documented in this encounter [facility] 03-30-2024 Telephone encounter Note Patient has been identified by name and date of : Yes Patient phoned to request the following prescription(s) If there are any questions regarding this prescription request, call at home at: [phone] (home) [phone] (cell) RX INSTRUCTIONS: Patient aware RX will be sent to pharmacy. No need to notify patient. Date of last office visit: 10/31/23 Date of last [facility] Health visit: Visit date not found Date of future office visit: 04/30/24 Requested Prescriptions Pending Prescriptions Disp Refills amLODIPine (NORVASC) 5 mg tablet [Pharmacy Med Name: AMLODIPINE BESYLATE 5 MG TAB] 90 tablet 3 Sig: take 1 tablet by mouth every day Prescriptions are usually addressed within 24-48 business hours. If patient states they cannot wait 24-48 business hours, please document details. Last 2 Encounter Wt Readings: Date: Wt: 10/31/2023 84.8 kg (187 lb) 2022 84.4 kg (186 lb) Last 2 Encounter BP Readings: Date: BP: 10/31/2023 130/80 2022 122/72 CMP: Glucose 139 10/31/2023 BUN 29 10/31/2023 Creatinine 2.28 10/31/2023 Sodium 140 10/31/2023 Potassium 5.4 10/31/2023 Chloride 108 10/31/2023 CO2 17 10/31/2023 Protein, Total 7.4 10/31/2023 Albumin 4.2 10/31/2023 Calcium 9.5 10/31/2023 Alkaline Phosphatase 371 10/31/2023 Bilirubin, Total 0.4 10/31/2023 AST 19 10/31/2023 ALT 14 10/31/2023 Cholesterol, Total (mg/dL) Date Value 10/12/2021 158 12/12/2018 151 Total Cholesterol, Nonfasting (mg/dL) Date Value 10/31/2023 145 HDL Cholesterol (mg/dL) Date Value 10/12/2021 44 12/12/2018 39 HDL Cholesterol, Nonfasting (mg/dL) Date Value 10/31/2023 37 LDL Cholesterol (mg/dL) Date Value 10/12/2021 87 12/12/2018 85 LDL Cholesterol, Nonfasting (mg/dL) Date Value 10/31/2023 86 Triglyceride (mg/dL) Date Value 10/12/2021 137 12/12/2018 133 Triglycerides, Nonfasting (mg/dL) Date Value 10/31/2023 108 Zahra George RN [facility] 06-19-2023 Miscellaneous Notes Patient has been identified by name and date of : Yes Pharmacy electronically sent a request for the following prescription(s) If there are any questions regarding this prescription request, call at: [phone] (home) [phone] (cell) RX INSTRUCTIONS: Pharmacy initiated this request. No need to notify patient. Date of last office visit: 07/24/22 Date of last [facility] Health visit: Visit date not found Date of future office visit: Not Scheduled, needs appointment for future refills. Bionym message sent to pt. Requested Prescriptions Pending Prescriptions Disp Refills rivaroxaban (XARELTO) 20 mg tablet [Pharmacy Med Name: XARELTO 20 MG TABLET] 90 tablet 3 Sig: Take 1 tablet by mouth once daily. Prescriptions are usually addressed within 24-48 business hours. If patient states they cannot wait 24-48 business hours, please document details. Last 2 Encounter Wt Readings: Date: Wt: 2022 84.4 kg (186 lb) 01/16/2022 83.9 kg (185 lb) Last 2 Encounter BP Readings: Date: BP: 2022 122/72 01/16/2022 136/86 CMP: Glucose 87 10/12/2021 BUN 23 10/12/2021 Creatinine 1.61 10/12/2021 Sodium 140 10/12/2021 Potassium 4.6 10/12/2021 Chloride 107 10/12/2021 CO2 22 10/12/2021 Protein, Total 6.3 10/12/2021 Albumin 3.9 10/12/2021 Calcium 9.4 10/12/2021 Alkaline Phosphatase 334 10/12/2021 Bilirubin, Total 0.4 10/12/2021 AST 30 10/12/2021 ALT 22 10/12/2021 Cholesterol, Total (mg/dL) Date Value 10/12/2021 158 12/12/2018 151 HDL Cholesterol (mg/dL) Date Value 10/12/2021 44 12/12/2018 39 LDL Cholesterol (mg/dL) Date Value 10/12/2021 87 12/12/2018 85 Triglyceride (mg/dL) Date Value 10/12/2021 137 12/12/2018 133 Batsheva Israel RN documented in this encounter [facility] 05-31-2023 Miscellaneous Notes The following approved medication requests have been transmitted electronically. Requested Prescriptions Refused Prescriptions Disp Refills buPROPion SR (ZYBAN SR; WELLBUTRIN SR) 150 mg 12 hr tablet [Pharmacy Med Name: BUPROPION HCL SR 150 MG TABLET] 180 tablet 0 Sig: Take 1 tablet by mouth twice daily. Patient needs appointment for future refills Kirk Romero APRN.JIMMY Patient has been identified by name and date of : Yes Pharmacy electronically sent a request for the following prescription(s) If there are any questions regarding this prescription request, call at: [phone] (home) [phone] (cell) RX INSTRUCTIONS: Patient aware RX will be sent to pharmacy. No need to notify patient. Date of last office visit: 2022 Date of last [facility] Health visit: Visit date not found Date of future office visit: Not Scheduled Requested Prescriptions Pending Prescriptions Disp Refills buPROPion SR (ZYBAN SR; WELLBUTRIN SR) 150 mg 12 hr tablet [Pharmacy Med Name: BUPROPION HCL SR 150 MG TABLET] 180 tablet 0 Sig: Take 1 tablet by mouth twice daily. Patient needs appointment for future refills Prescriptions are usually addressed within 24-48 business hours. If patient states they cannot wait 24-48 business hours, please document details. Last 2 Encounter Wt Readings: Date: Wt: 2022 84.4 kg (186 lb) 01/16/2022 83.9 kg (185 lb) Last 2 Encounter BP Readings: Date: BP: 2022 122/72 01/16/2022 136/86 CMP: Glucose 87 10/12/2021 BUN 23 10/12/2021 Creatinine 1.61 10/12/2021 Sodium 140 10/12/2021 Potassium 4.6 10/12/2021 Chloride 107 10/12/2021 CO2 22 10/12/2021 Protein, Total 6.3 10/12/2021 Albumin 3.9 10/12/2021 Calcium 9.4 10/12/2021 Alkaline Phosphatase 334 10/12/2021 Bilirubin, Total 0.4 10/12/2021 AST 30 10/12/2021 ALT 22 10/12/2021 Cholesterol, Total (mg/dL) Date Value 10/12/2021 158 12/12/2018 151 HDL Cholesterol (mg/dL) Date Value 10/12/2021 44 12/12/2018 39 LDL Cholesterol (mg/dL) Date Value 10/12/2021 87 12/12/2018 85 Triglyceride (mg/dL) Date Value 10/12/2021 137 12/12/2018 133 Lucie Lal RN documented in this encounter [facility] 05-02-2023 Miscellaneous Notes Patient has been identified by name and date of : Yes Patient phoned to request the following prescription(s) If there are any questions regarding this prescription request, call at home at: [phone] (home) [phone] (cell) RX INSTRUCTIONS: Patient aware RX will be sent to pharmacy. No need to notify patient. Date of last office visit: 07/24/22 Date of last [facility] Health visit: Visit date not found Date of future office visit: Not Scheduled Requested Prescriptions Pending Prescriptions Disp Refills rosuvastatin (CRESTOR) 40 mg tablet [Pharmacy Med Name: ROSUVASTATIN CALCIUM 40 MG TAB] 90 tablet 3 Sig: TAKE 1 TABLET BY MOUTH EVERY DAY isosorbide mononitrate ER (IMDUR) 30 mg 24 hr tablet [Pharmacy Med Name: ISOSORBIDE MONONIT ER 30 MG TB] 90 tablet 3 Sig: TAKE 1 TABLET BY MOUTH EVERY DAY lisinopril (ZESTRIL) 40 mg tablet [Pharmacy Med Name: LISINOPRIL 40 MG TABLET] 90 tablet 3 Sig: TAKE 1 TABLET BY MOUTH EVERY DAY Prescriptions are usually addressed within 24-48 business hours. If patient states they cannot wait 24-48 business hours, please document details. Last 2 Encounter Wt Readings: Date: Wt: 2022 84.4 kg (186 lb) 01/16/2022 83.9 kg (185 lb) Last 2 Encounter BP Readings: Date: BP: 2022 122/72 01/16/2022 136/86 CMP: Glucose 87 10/12/2021 BUN 23 10/12/2021 Creatinine 1.61 10/12/2021 Sodium 140 10/12/2021 Potassium 4.6 10/12/2021 Chloride 107 10/12/2021 CO2 22 10/12/2021 Protein, Total 6.3 10/12/2021 Albumin 3.9 10/12/2021 Calcium 9.4 10/12/2021 Alkaline Phosphatase 334 10/12/2021 Bilirubin, Total 0.4 10/12/2021 AST 30 10/12/2021 ALT 22 10/12/2021 Cholesterol, Total (mg/dL) Date Value 10/12/2021 158 12/12/2018 151 HDL Cholesterol (mg/dL) Date Value 10/12/2021 44 12/12/2018 39 LDL Cholesterol (mg/dL) Date Value 10/12/2021 87 12/12/2018 85 Triglyceride (mg/dL) Date Value 10/12/2021 137 12/12/2018 133 Zahra George RN documented in this encounter [facility] 04-08-2023 Miscellaneous Notes Patient has been identified by name and date of : Yes Pharmacy electronically sent a request for the following prescription(s) If there are any questions regarding this prescription request, call at home at: [phone] (home) [phone] (cell) RX INSTRUCTIONS: Pharmacy initiated this request. No need to notify patient. Date of last office visit: 07/24/22 Date of last [facility] Health visit: Visit date not found Date of future office visit: Not Scheduled Requested Prescriptions Pending Prescriptions Disp Refills amLODIPine (NORVASC) 5 mg tablet [Pharmacy Med Name: AMLODIPINE BESYLATE 5 MG TAB] 90 tablet 3 Sig: Take 1 tablet by mouth once daily. Prescriptions are usually addressed within 24-48 business hours. If patient states they cannot wait 24-48 business hours, please document details. Last 2 Encounter Wt Readings: Date: Wt: 2022 84.4 kg (186 lb) 01/16/2022 83.9 kg (185 lb) Last 2 Encounter BP Readings: Date: BP: 2022 122/72 01/16/2022 136/86 CMP: Glucose 87 10/12/2021 BUN 23 10/12/2021 Creatinine 1.61 10/12/2021 Sodium 140 10/12/2021 Potassium 4.6 10/12/2021 Chloride 107 10/12/2021 CO2 22 10/12/2021 Protein, Total 6.3 10/12/2021 Albumin 3.9 10/12/2021 Calcium 9.4 10/12/2021 Alkaline Phosphatase 334 10/12/2021 Bilirubin, Total 0.4 10/12/2021 AST 30 10/12/2021 ALT 22 10/12/2021 Cholesterol, Total (mg/dL) Date Value 10/12/2021 158 12/12/2018 151 HDL Cholesterol (mg/dL) Date Value 10/12/2021 44 12/12/2018 39 LDL Cholesterol (mg/dL) Date Value 10/12/2021 87 12/12/2018 85 Triglyceride (mg/dL) Date Value 10/12/2021 137 12/12/2018 133 Jacqueline Jacobson RN documented in this encounter [facility] 2022 Instructions Jhonny Medel MD - 2022 3:51 PM EDT You are doing well - you have NO symptoms of angina, heart failure and no recent afib I would still recommend Repatha but you are reluctant to take this; you would also be a good candidate for inclisiran Please consider quitting smoking again Schedule an echocardiogram (ultrasound of the heart) in [place] [phone] See me again in about 6 months and have fasting blood work before the visit documented in this encounter [facility] 2022 History of Present illness Narrative Images from the original note were not included. [facility] [place] Jose J Brewer Department of Cardiovascular Medicine SECTION OF CLINICAL CARDIOLOGY OUTPATIENT VISIT DATE 2022 OUTPATIENT VISIT TYPE ESTABLISHED PATIENT: Maria Teresa Holguin DATE OF : 1955 DATE: 2022 INTERVAL HISTORY: Ms. Holguin comes for a follow up visit for CAD, PAD, smoking, PAF on sotalol. The last visit with me was 6 months ago. She is feeling good. Cut back to 1/2 pack per day of cigarettes. Taking all medications. ROS: Negative for cough, wheezing, shortness of breath and chest pain Negative for leg swelling, palpitations, claudication, orthopnea, paroxysmal nocturnal dyspnea, syncope. All other reviewed and negative other than HPI. CURRENT MEDICATIONS: isosorbide mononitrate ER (IMDUR) 30 mg 24 hr tablet TAKE 1 TABLET BY MOUTH EVERY DAY rosuvastatin (CRESTOR) 40 mg tablet TAKE 1 TABLET BY MOUTH EVERY DAY lisinopril (ZESTRIL, PRINIVIL) 40 mg tablet TAKE 1 TABLET BY MOUTH EVERY DAY sotalol (BETAPACE) 80 mg tablet TAKE 1/2 TABLET BY MOUTH TWICE DAILY amLODIPine (NORVASC) 5 mg tablet Take 1 tablet by mouth once daily. rivaroxaban (XARELTO) 20 mg tablet Take 1 tablet by mouth once daily. gabapentin (NEURONTIN) 100 mg capsule Take 1-3 capsules up to 3 times a day as needed for pain aspirin, enteric coated (ECOTRIN LOW STRENGTH) 81 mg EC tablet Take 1 tablet by mouth once daily. buPROPion SR (ZYBAN SR; WELLBUTRIN SR) 150 mg 12 hr tablet TAKE 1 TABLET BY MOUTH TWICE A DAY (Patient not taking: Reported on 2022) evolocumab 140 mg/mL subcutaneous pen injector (REPATHA [facility]) Inject 140 mg subcutaneously every 2 weeks. PHYSICAL EXAMINATION: General: No distress, alert and oriented Vital signs: BP 122/72 Pulse 60 Ht 5' 3" (1.60m) Wt 186 lb (84.4kg) BMI 32.96 kg/(m^2). Neck: no JVD Lungs: clear to auscultation Cardiac exam: RRR normal S1, S2 no murmurs Extremities: warm, well perfused, no edema EKG: today - QTc 456 ms CARDIAC STUDIES: PVR February 2018 IMPRESSION RIGHT SIDE Resting right ankle brachial index: 0.96 Post exercise right ankle brachial index: 0.84 Borderline abnormal ankle brachial index at rest. Right ankle: Borderline abnormal at rest. Right small vessel disease versus vasoconstriction. Note drop in pressure and/or ankle-brachial index after exercise, consistent with peripheral artery disease. Unable to determine exact area of narrowing. LEFT SIDE Resting left ankle brachial index: 0.96 Post exercise left ankle brachial index: 0.81 Borderline abnormal ankle brachial index at rest. Left ankle: Borderline abnormal at rest. Left small vessel disease versus vasoconstriction. Note drop in pressure and/or ankle-brachial index after exercise, consistent with peripheral artery disease. Unable to determine exact area of narrowing. Technologist: Carmen Shaikh RVT Ordering physician: Liz Gonzalez Interpreting physician: PIYUSH Sharma DO echo 12/2014 CONCLUSIONS: - Exam indication: CAD/ME/AFib - The left ventricle is normal in size. Left ventricular systolic function is normal. EF = 55 5% (visual est.) Baseline left ventricular diastolic function is consistent with abnormal relaxation (stage 1). - The right ventricle is normal in size. Right ventricular systolic function is normal. - There are no significant valvular abnormalities. - No prior echocardiographic exam available for comparison. LABS: CMP Latest Ref Rng & Units 12/12/2017 12/12/2018 10/12/2021 SODIUM 136 - 144 mmol/L 138 136 140 POTASSIUM 3.7 - 5.1 mmol/L 4.9 4.8 4.6 CHLORIDE 97 - 105 mmol/L 101 103 107(H) CO2 22 - 30 mmol/L 19(L) 18(L) 22 GLUCOSE 74 - 99 mg/dL 81 94 87 BUN 7 - 21 mg/dL 35(H) 36(H) 23(H) CREATININE 0.58 - 0.96 mg/dL 1.85(H) 2.04(H) 1.61(H) EGFR - - - - EGFR-ALL OTHER RACES . 28 25 32 EGFR- - 33 30 39 PROTEIN, TOTAL 6.3 - 8.0 g/dL - 7.7 6.3 ALBUMIN 3.9 - 4.9 g/dL - 4.3 3.9 CALCIUM, TOTAL 8.5 - 10.2 mg/dL 9.2 9.8 9.4 BILIRUBIN, TOTAL 0.2 - 1.3 mg/dL - 0.4 0.4 AST 13 - 35 U/L - 30 30 ALT 7 - 38 U/L - 27 22 ALKALINE PHOSPHATASE 34 - 123 U/L - 484(H) 334(H) Hemoglobin (g/dL) Date Value 10/12/2021 13.0 Hematocrit (%) Date Value 10/12/2021 41.7 WBC (k/uL) Date Value 10/12/2021 10.33 No results found for: HBA1C Cholesterol, Total (mg/dL) Date Value 10/12/2021 158 12/12/2018 151 HDL Cholesterol (mg/dL) Date Value 10/12/2021 44 12/12/2018 39 LDL Cholesterol (mg/dL) Date Value 10/12/2021 87 12/12/2018 85 Triglyceride (mg/dL) Date Value 10/12/2021 137 12/12/2018 133 TSH (uU/mL) Date Value 12/04/2017 3.080 10/14/2016 3.230 NT Pro BNP Date Value Ref Range Status 10/14/2016 310 (H) <125 pg/mL Final 04/06/2015 195 (H) <125 pg/mL Final Impression: Encounter Diagnosis ICD-10-CM 1. Coronary artery disease involving [place] coronary artery of [place] heart without angina pectoris I25.10 2. History of ME (myocardial infarction) December 2008 I25.2 3. s/p PCI with JIM to the LAD 12/2008 Z95.5 4. PAD (peripheral artery disease) [facility]) I73.9 5. H/O aorto-femoral bypass for occluded aorta 2009 Z95.828 6. Paroxysmal atrial fibrillation ([facility]) I48.0 7. Encounter for monitoring sotalol therapy Z51.81 Z79.899 8. Anticoagulated by anticoagulation treatment (Xarelto) Z79.01 9. Pure hypercholesterolemia E78.00 10. Tobacco abuse Z72.0 11. Stage 3a chronic kidney disease (HCC) N18.31 12. Sciatica of left side M54.32 Plan: Patient Instructions You are doing well - you have NO symptoms of angina, heart failure and no recent afib I would still recommend Repatha but you are reluctant to take this; you would also be a good candidate for inclisiran Please consider quitting smoking again Schedule an echocardiogram (ultrasound of the heart) in [place] [phone] See me again in about 6 months and have fasting blood work before the visit Medical Decision Making: Problems: Moderate: 2+ stable chronic illnesses Risk: Moderate: Moderate risk from testing/treatment Medical Decision Making Level: 4 - Moderate Thank you very much for allowing me to assist in the care of Maria Teresa Holguin. Please do not hesitate to contact me if you have questions or concerns. Jhonny Medel MD CC: Carli Galvan [address] [place] [address] documented in this encounter [facility] 06-11-2022 Miscellaneous Notes Patient has been identified by name and date of : Yes Pharmacy electronically sent a request for the following prescription(s) If there are any questions regarding this prescription request, call at: [phone] (home) [phone] (cell) RX INSTRUCTIONS: Pharmacy initiated this request. No need to notify patient. Date of last office visit: 01/16/22 Date of last [facility] Health visit: Visit date not found Date of future office visit: 07/24/22 Requested Prescriptions Pending Prescriptions Disp Refills buPROPion SR (ZYBAN SR; WELLBUTRIN SR) 150 mg 12 hr tablet [Pharmacy Med Name: BUPROPION HCL SR 150 MG TABLET] 180 tablet 3 Sig: TAKE 1 TABLET BY MOUTH TWICE A DAY Prescriptions are usually addressed within 24-48 business hours. If patient states they cannot wait 24-48 business hours, please document details. Last 2 Encounter Wt Readings: Date: Wt: 01/16/2022 83.9 kg (185 lb) 05/12/2021 82.6 kg (182 lb) Last 2 Encounter BP Readings: Date: BP: 01/16/2022 136/86 05/12/2021 140/70 CMP: Glucose 87 10/12/2021 BUN 23 10/12/2021 Creatinine 1.61 10/12/2021 Sodium 140 10/12/2021 Potassium 4.6 10/12/2021 Chloride 107 10/12/2021 CO2 22 10/12/2021 Protein, Total 6.3 10/12/2021 Albumin 3.9 10/12/2021 Calcium 9.4 10/12/2021 Alkaline Phosphatase 334 10/12/2021 Bilirubin, Total 0.4 10/12/2021 AST 30 10/12/2021 ALT 22 10/12/2021 Cholesterol, Total (mg/dL) Date Value 10/12/2021 158 12/12/2018 151 HDL Cholesterol (mg/dL) Date Value 10/12/2021 44 12/12/2018 39 LDL Cholesterol (mg/dL) Date Value 10/12/2021 87 12/12/2018 85 Triglyceride (mg/dL) Date Value 10/12/2021 137 12/12/2018 133 Batsheva Israel RN documented in this encounter [facility] 05-14-2022 Miscellaneous Notes Patient has been identified by name and date of : Yes Patient phoned to request the following prescription(s) If there are any questions regarding this prescription request, call at home at: [phone] (home) [phone] (cell) RX INSTRUCTIONS: Patient aware RX will be sent to pharmacy. No need to notify patient. Date of last office visit: 01/16/22 Date of last [facility] Health visit: Visit date not found Date of future office visit: 07/24/22 Pending Prescriptions Disp Refills ISOSORBIDE MONONITRATE ER 30 MG TABLET,EXTENDED RELEASE 24 HR 90 tablet 3 Sig: TAKE 1 TABLET BY MOUTH EVERY DAY NAZ: Yes ROSUVASTATIN 40 MG TABLET 90 tablet 3 Sig: TAKE 1 TABLET BY MOUTH EVERY DAY NAZ: Yes LISINOPRIL 40 MG TABLET 90 tablet 3 Sig: TAKE 1 TABLET BY MOUTH EVERY DAY NAZ: Yes Prescriptions are usually addressed within 24-48 business hours. If patient states they cannot wait 24-48 business hours, please document details. Last 2 Encounter Wt Readings: Date: Wt: 01/16/2022 83.9 kg (185 lb) 05/12/2021 82.6 kg (182 lb) Last 2 Encounter BP Readings: Date: BP: 01/16/2022 136/86 05/12/2021 140/70 CMP: Glucose 87 10/12/2021 BUN 23 10/12/2021 Creatinine 1.61 10/12/2021 Sodium 140 10/12/2021 Potassium 4.6 10/12/2021 Chloride 107 10/12/2021 CO2 22 10/12/2021 Protein, Total 6.3 10/12/2021 Albumin 3.9 10/12/2021 Calcium 9.4 10/12/2021 Alkaline Phosphatase 334 10/12/2021 Bilirubin, Total 0.4 10/12/2021 AST 30 10/12/2021 ALT 22 10/12/2021 Cholesterol, Total (mg/dL) Date Value 10/12/2021 158 12/12/2018 151 HDL Cholesterol (mg/dL) Date Value 10/12/2021 44 12/12/2018 39 LDL Cholesterol (mg/dL) Date Value 10/12/2021 87 12/12/2018 85 Triglyceride (mg/dL) Date Value 10/12/2021 137 12/12/2018 133 Zahra George RN documented in this encounter [facility] 05-02-2022 Miscellaneous Notes Patient has been identified by name and date of : Yes Patient phoned to request the following prescription(s) If there are any questions regarding this prescription request, call at home at: [phone] (home) [phone] (cell) RX INSTRUCTIONS: Patient aware RX will be sent to pharmacy. No need to notify patient. Date of last office visit: 01/16/22 Date of last [facility] Health visit: Visit date not found Date of future office visit: 07/24/22 Pending Prescriptions Disp Refills SOTALOL 80 MG TABLET 90 tablet 3 Sig: TAKE 1/2 TABLET BY MOUTH TWICE DAILY NAZ: No Prescriptions are usually addressed within 24-48 business hours. If patient states they cannot wait 24-48 business hours, please document details. Last 2 Encounter Wt Readings: Date: Wt: 01/16/2022 83.9 kg (185 lb) 05/12/2021 82.6 kg (182 lb) Last 2 Encounter BP Readings: Date: BP: 01/16/2022 136/86 05/12/2021 140/70 CMP: Glucose 87 10/12/2021 BUN 23 10/12/2021 Creatinine 1.61 10/12/2021 Sodium 140 10/12/2021 Potassium 4.6 10/12/2021 Chloride 107 10/12/2021 CO2 22 10/12/2021 Protein, Total 6.3 10/12/2021 Albumin 3.9 10/12/2021 Calcium 9.4 10/12/2021 Alkaline Phosphatase 334 10/12/2021 Bilirubin, Total 0.4 10/12/2021 AST 30 10/12/2021 ALT 22 10/12/2021 Cholesterol, Total (mg/dL) Date Value 10/12/2021 158 12/12/2018 151 HDL Cholesterol (mg/dL) Date Value 10/12/2021 44 12/12/2018 39 LDL Cholesterol (mg/dL) Date Value 10/12/2021 87 12/12/2018 85 Triglyceride (mg/dL) Date Value 10/12/2021 137 12/12/2018 133 Zahra George RN documented in this encounter [facility] 04-17-2022 Miscellaneous Notes Patient has been identified by name and date of : Yes Patient phoned to request the following prescription(s) If there are any questions regarding this prescription request, call at home at: [phone] (home) [phone] (cell) RX INSTRUCTIONS: Patient aware RX will be sent to pharmacy. No need to notify patient. Date of last office visit: 01/16/22 Date of last [facility] Health visit: Visit date not found Date of future office visit: 07/24/22 Pending Prescriptions Disp Refills AMLODIPINE 5 MG TABLET 90 tablet 3 Sig: Take 1 tablet by mouth once daily. NAZ: No Prescriptions are usually addressed within 24-48 business hours. If patient states they cannot wait 24-48 business hours, please document details. Last 2 Encounter Wt Readings: Date: Wt: 01/16/2022 83.9 kg (185 lb) 05/12/2021 82.6 kg (182 lb) Last 2 Encounter BP Readings: Date: BP: 01/16/2022 136/86 05/12/2021 140/70 CMP: Glucose 87 10/12/2021 BUN 23 10/12/2021 Creatinine 1.61 10/12/2021 Sodium 140 10/12/2021 Potassium 4.6 10/12/2021 Chloride 107 10/12/2021 CO2 22 10/12/2021 Protein, Total 6.3 10/12/2021 Albumin 3.9 10/12/2021 Calcium 9.4 10/12/2021 Alkaline Phosphatase 334 10/12/2021 Bilirubin, Total 0.4 10/12/2021 AST 30 10/12/2021 ALT 22 10/12/2021 Cholesterol, Total (mg/dL) Date Value 10/12/2021 158 12/12/2018 151 HDL Cholesterol (mg/dL) Date Value 10/12/2021 44 12/12/2018 39 LDL Cholesterol (mg/dL) Date Value 10/12/2021 87 12/12/2018 85 Triglyceride (mg/dL) Date Value 10/12/2021 137 12/12/2018 133 Zahra George RN documented in this encounter [facility] 03-16-2022 Miscellaneous Notes Refill already routed to Dr. Medel. Zahra George RN documented in this encounter [facility] 03-14-2022 Miscellaneous Notes Patient has been identified by name and date of : Yes Pharmacy electronically sent a request for the following prescription(s) If there are any questions regarding this prescription request, call at home at: [phone] (home) [phone] (cell) RX INSTRUCTIONS: Patient aware RX will be sent to pharmacy. No need to notify patient. Date of last office visit: 01/16/22 Date of last [facility] Health visit: Visit date not found Date of future office visit: 07/24/22 Pending Prescriptions Disp Refills RIVAROXABAN 20 MG TABLET 90 tablet 3 Sig: Take 1 tablet by mouth once daily. NAZ: No Prescriptions are usually addressed within 24-48 business hours. If patient states they cannot wait 24-48 business hours, please document details. Last 2 Encounter Wt Readings: Date: Wt: 01/16/2022 83.9 kg (185 lb) 05/12/2021 82.6 kg (182 lb) Last 2 Encounter BP Readings: Date: BP: 01/16/2022 136/86 05/12/2021 140/70 CMP: Glucose 87 10/12/2021 BUN 23 10/12/2021 Creatinine 1.61 10/12/2021 Sodium 140 10/12/2021 Potassium 4.6 10/12/2021 Chloride 107 10/12/2021 CO2 22 10/12/2021 Protein, Total 6.3 10/12/2021 Albumin 3.9 10/12/2021 Calcium 9.4 10/12/2021 Alkaline Phosphatase 334 10/12/2021 Bilirubin, Total 0.4 10/12/2021 AST 30 10/12/2021 ALT 22 10/12/2021 Cholesterol, Total (mg/dL) Date Value 10/12/2021 158 12/12/2018 151 HDL Cholesterol (mg/dL) Date Value 10/12/2021 44 12/12/2018 39 LDL Cholesterol (mg/dL) Date Value 10/12/2021 87 12/12/2018 85 Triglyceride (mg/dL) Date Value 10/12/2021 137 12/12/2018 133 Jacqueline Jacobson RN documented in this encounter [facility] 01-16-2022 Instructions Jhonny Medel MD - 01/16/2022 2:15 PM EDT Good news- you have NO symptoms of angina, heart failure and no recent afib I would still recommend Repatha but you are reluctant to take this; you would also be a good candidate for inclisiran Please consider quitting smoking again Have non fasting blood work in March See me again in about 6 months documented in this encounter [facility] 01-16-2022 History of Present illness Narrative Images from the original note were not included. [facility] [place] Jose J Brewer Department of Cardiovascular Medicine SECTION OF CLINICAL CARDIOLOGY OUTPATIENT VISIT DATE January 16, 2022 OUTPATIENT VISIT TYPE ESTABLISHED PATIENT: Maria Teresa Holguin DATE OF : 1955 DATE: 01/16/2022 INTERVAL HISTORY: Ms. Holguin comes for a follow up visit for CAD and PAF and PAD. The last visit with me was April 2021. She has not had any recurrent angina and no afib over the past year. No bleeding with Xarelto. She is taking rosuvastatin but not repatha. She is apprehensive about the injections. She is still smoking but not as much as in the past. She did quit for 1 months but is now smoking again. She is not checking BP at home ROS: Negative for cough, wheezing, shortness of breath and chest pain Negative for leg swelling, palpitations, claudication, orthopnea, paroxysmal nocturnal dyspnea, syncope. All other reviewed and negative other than HPI. CURRENT MEDICATIONS: sotalol (BETAPACE) 80 mg tablet TAKE 0.5 TABLET BY MOUTH TWICE DAILY. rosuvastatin (CRESTOR) 40 mg tablet Take 1 tablet by mouth once daily. lisinopril (ZESTRIL, PRINIVIL) 40 mg tablet Take 1 tablet by mouth once daily. isosorbide mononitrate ER (IMDUR) 30 mg 24 hr tablet Take 1 tablet by mouth once daily. amLODIPine (NORVASC) 5 mg tablet Take 1 tablet by mouth once daily. rivaroxaban (XARELTO) 20 mg tablet Take 1 tablet by mouth once daily. aspirin, enteric coated (ECOTRIN LOW STRENGTH) 81 mg EC tablet Take 1 tablet by mouth once daily. buPROPion SR (ZYBAN SR; WELLBUTRIN SR) 150 mg 12 hr tablet TAKE 1 TABLET BY MOUTH TWICE A DAY gabapentin (NEURONTIN) 100 mg capsule Take 1-3 capsules up to 3 times a day as needed for pain evolocumab 140 mg/mL subcutaneous pen injector (REPATHA [employer]RECLICK) Inject 140 mg subcutaneously every 2 weeks. PHYSICAL EXAMINATION: General: No distress, alert and oriented Vital signs: BP 136/86 Pulse 57 Ht 5' 3" (1.60m) Wt 185 lb (83.9kg) BMI 32.78 kg/(m^2). Neck: no JVD Lungs: clear to auscultation Cardiac exam: RRR normal S1, S2 no murmurs Extremities: warm, well perfused, no edema EKG: today CARDIAC STUDIES: PVR February 2018 IMPRESSION RIGHT SIDE Resting right ankle brachial index: 0.96 Post exercise right ankle brachial index: 0.84 Borderline abnormal ankle brachial index at rest. Right ankle: Borderline abnormal at rest. Right small vessel disease versus vasoconstriction. Note drop in pressure and/or ankle-brachial index after exercise, consistent with peripheral artery disease. Unable to determine exact area of narrowing. LEFT SIDE Resting left ankle brachial index: 0.96 Post exercise left ankle brachial index: 0.81 Borderline abnormal ankle brachial index at rest. Left ankle: Borderline abnormal at rest. Left small vessel disease versus vasoconstriction. Note drop in pressure and/or ankle-brachial index after exercise, consistent with peripheral artery disease. Unable to determine exact area of narrowing. Technologist: Carmen Shaikh T Ordering physician: Liz Gonzalez Interpreting physician: Liz Gonzalez DO [facility] echo 12/2014 CONCLUSIONS: - Exam indication: CAD/ME/AFib - The left ventricle is normal in size. Left ventricular systolic function is normal. EF = 55 5% (visual est.) Baseline left ventricular diastolic function is consistent with abnormal relaxation (stage 1). - The right ventricle is normal in size. Right ventricular systolic function is normal. - There are no significant valvular abnormalities. - No prior echocardiographic exam available for comparison. LABS: CMP Latest Ref Rng & Units 12/12/2017 12/12/2018 10/12/2021 SODIUM 136 - 144 mmol/L 138 136 140 POTASSIUM 3.7 - 5.1 mmol/L 4.9 4.8 4.6 CHLORIDE 97 - 105 mmol/L 101 103 107(H) CO2 22 - 30 mmol/L 19(L) 18(L) 22 GLUCOSE 74 - 99 mg/dL 81 94 87 BUN 7 - 21 mg/dL 35(H) 36(H) 23(H) CREATININE 0.58 - 0.96 mg/dL 1.85(H) 2.04(H) 1.61(H) EGFR - - - - EGFR-ALL OTHER RACES . 28 25 32 EGFR- - 33 30 39 PROTEIN, TOTAL 6.3 - 8.0 g/dL - 7.7 6.3 ALBUMIN 3.9 - 4.9 g/dL - 4.3 3.9 CALCIUM, TOTAL 8.5 - 10.2 mg/dL 9.2 9.8 9.4 BILIRUBIN, TOTAL 0.2 - 1.3 mg/dL - 0.4 0.4 AST 13 - 35 U/L - 30 30 ALT 7 - 38 U/L - 27 22 ALKALINE PHOSPHATASE 34 - 123 U/L - 484(H) 334(H) Hemoglobin (g/dL) Date Value 10/12/2021 13.0 Hematocrit (%) Date Value 10/12/2021 41.7 WBC (k/uL) Date Value 10/12/2021 10.33 No results found for: HBA1C Cholesterol, Total (mg/dL) Date Value 10/12/2021 158 12/12/2018 151 HDL Cholesterol (mg/dL) Date Value 10/12/2021 44 12/12/2018 39 LDL Cholesterol (mg/dL) Date Value 10/12/2021 87 12/12/2018 85 Triglyceride (mg/dL) Date Value 10/12/2021 137 12/12/2018 133 TSH (uU/mL) Date Value 12/04/2017 3.080 10/14/2016 3.230 NT Pro BNP Date Value Ref Range Status 10/14/2016 310 (H) <125 pg/mL Final 04/06/2015 195 (H) <125 pg/mL Final Impression: Encounter Diagnosis ICD-10-CM 1. Coronary artery disease involving [place] coronary artery of [place] heart without angina pectoris I25.10 2. History of ME (myocardial infarction) December 2008 I25.2 3. s/p PCI with JIM to the LAD 12/2008 Z95.5 4. PAD (peripheral artery disease) (HCC) I73.9 5. H/O aorto-femoral bypass for occluded aorta 2009 Z95.828 6. Paroxysmal atrial fibrillation (HCC) I48.0 7. Encounter for monitoring sotalol therapy Z51.81 Z79.899 8. Anticoagulated by anticoagulation treatment (Xarelto) Z79.01 9. Pure hypercholesterolemia E78.00 10. Tobacco abuse Z72.0 11. Stage 3a chronic kidney disease (HCC) N18.31 Plan: Patient Instructions Good news- you have NO symptoms of angina, heart failure and no recent afib I would still recommend Repatha but you are reluctant to take this; you would also be a good candidate for inclisiran Please consider quitting smoking again Have non fasting blood work in March See me again in about 6 months Medical Decision Making: Problems: Moderate: 2+ stable chronic illnesses Risk: Moderate: Moderate risk from testing/treatment Medical Decision Making Level: 4 - Moderate Thank you very much for allowing me to assist in the care of Maria Teresa Holguin. Please do not hesitate to contact me if you have questions or concerns. Jhonny Medel MD CC: Carli Galvan [address] [place] [id number] documented in this encounter [facility] 12-12-2008 Evaluation note Diagnosis Coronary artery disease involving [place] coronary artery of [place] heart without angina pectoris- Primary History of ME (myocardial infarction) December 2008 Old myocardial infarction s/p PCI with JIM to the LAD 12/2008 Postsurgical percutaneous transluminal coronary angioplasty status PAD (peripheral artery disease) (HCC) Peripheral vascular disease, unspecified H/O aorto-femoral bypass for occluded aorta 2010 Personal history of surgery to heart and great vessels, presenting hazards to health Paroxysmal atrial fibrillation (HCC) Atrial fibrillation Encounter for monitoring sotalol therapy Encounter for therapeutic drug monitoring Anticoagulated by anticoagulation treatment (Xarelto) Long-term (current) use of anticoagulants Pure hypercholesterolemia Tobacco abuse Tobacco use disorder Stage 3a chronic kidney disease (HCC) documented in this encounter [facility]03-01-2009 Evaluation note* Diagnosis Coronary artery disease involving [place] coronary artery of [place] heart without angina pectoris- Primary History of ME (myocardial infarction) December 2008 Old myocardial infarction s/p PCI with JIM to the LAD 12/2008 Postsurgical percutaneous transluminal coronary angioplasty status PAD (peripheral artery disease) (HCC) Peripheral vascular disease, unspecified H/O aorto-femoral bypass for occluded aorta 2010 Personal history of surgery to heart and great vessels, presenting hazards to health Paroxysmal atrial fibrillation (HCC) Atrial fibrillation Encounter for monitoring sotalol therapy Encounter for therapeutic drug monitoring Anticoagulated by anticoagulation treatment (Xarelto) Long-term (current) use of anticoagulants Pure hypercholesterolemia Tobacco abuse Tobacco use disorder Stage 3a chronic kidney disease (HCC) Sciatica of left side Sciatica documented in this encounter [facility]03-01-2009 Evaluation note* Diagnosis Coronary artery disease involving [place] coronary artery of [place] heart without angina pectoris- Primary History of ME (myocardial infarction) December 2008 Old myocardial infarction s/p PCI with JIM to the LAD 12/2008 Postsurgical percutaneous transluminal coronary angioplasty status PAD (peripheral artery disease) (HCC) Peripheral vascular disease, unspecified H/O aorto-femoral bypass for occluded aorta 2010 Personal history of surgery to heart and great vessels, presenting hazards to health Paroxysmal atrial fibrillation (HCC) Atrial fibrillation Encounter for monitoring sotalol therapy Encounter for therapeutic drug monitoring Anticoagulated by anticoagulation treatment (Xarelto) Long-term (current) use of anticoagulants Primary hypertension Unspecified essential hypertension Pure hypercholesterolemia Tobacco abuse Tobacco use disorder Stage 3a chronic kidney disease (HCC) [facility] Paroxysmal atrial fibrillation (HCC) Atrial fibrillation [facility] Diagnosis Encounter for screening mammogram for breast cancer [facility] Primary hypertension- Primary Unspecified essential hypertension Paroxysmal atrial fibrillation (HCC) Atrial fibrillation Coronary artery disease involving [place] coronary artery of [place] heart without angina pectoris PAD (peripheral artery disease) (HCC) Peripheral vascular disease, unspecified [facility] Paroxysmal atrial fibrillation (HCC) Atrial fibrillation [facility] Primary hypertension- Primary Unspecified essential hypertension [facility] Diagnosis Coronary artery disease involving [place] coronary artery of [place] heart without angina pectoris PAD (peripheral artery disease) [facility] Peripheral vascular disease, unspecified [facility] Diagnosis Gout flare- Primary Acute gouty arthropathy Elevated liver enzymes- Primary Other nonspecific abnormal serum enzyme levels Elevated alkaline phosphatase level Other nonspecific abnormal serum enzyme levels Gout flare Acute gouty arthropathy Preventive measure- Primary Unspecified prophylactic or treatment measure Annual physical exam Routine general medical examination at a health care facility Decreased hearing Unspecified hearing loss Gout flare Acute gouty arthropathy Elevated liver enzymes Other nonspecific abnormal serum enzyme levels Persistent cough for 3 weeks or longer- Primary Bronchitis Bronchitis, not specified as acute or chronic Tobacco abuse Tobacco use disorder [facility] Gout flare- Primary Acute gouty arthropathy Elevated liver enzymes- Primary Other nonspecific abnormal serum enzyme levels Elevated alkaline phosphatase level Other nonspecific abnormal serum enzyme levels Gout flare Acute gouty arthropathy Preventive measure- Primary Unspecified prophylactic or treatment measure Annual physical exam Routine general medical examination at a health care facility Decreased hearing Unspecified hearing loss Gout flare Acute gouty arthropathy Elevated liver enzymes Other nonspecific abnormal serum enzyme levels Bronchitis Bronchitis, not specified as acute or chronic [facility] Diagnosis Gout flare- Primary Acute gouty arthropathy Elevated liver enzymes- Primary Other nonspecific abnormal serum enzyme levels Elevated alkaline phosphatase level Other nonspecific abnormal serum enzyme levels Gout flare Acute gouty arthropathy Preventive measure- Primary Unspecified prophylactic or treatment measure Annual physical exam Routine general medical examination at a health care facility Decreased hearing Unspecified hearing loss Gout flare Acute gouty arthropathy Elevated liver enzymes Other nonspecific abnormal serum enzyme levels Paroxysmal atrial fibrillation (HCC)- Primary Atrial fibrillation [facility] Diagnosis Gout flare- Primary Acute gouty arthropathy Elevated liver enzymes- Primary Other nonspecific abnormal serum enzyme levels Elevated alkaline phosphatase level Other nonspecific abnormal serum enzyme levels Gout flare Acute gouty arthropathy Preventive measure- Primary Unspecified prophylactic or treatment measure Annual physical exam Routine general medical examination at a health care facility Decreased hearing Unspecified hearing loss Gout flare Acute gouty arthropathy Elevated liver enzymes Other nonspecific abnormal serum enzyme levels Primary hypertension Unspecified essential hypertension Coronary artery disease involving [place] coronary artery of [place] heart without angina pectoris PAD (peripheral artery disease) Peripheral vascular disease, unspecified [facility] Diagnosis Gout flare- Primary Acute gouty arthropathy Elevated liver enzymes- Primary Other nonspecific abnormal serum enzyme levels Elevated alkaline phosphatase level Other nonspecific abnormal serum enzyme levels Gout flare Acute gouty arthropathy Preventive measure- Primary Unspecified prophylactic or treatment measure Annual physical exam Routine general medical examination at a health care facility Decreased hearing Unspecified hearing loss Gout flare Acute gouty arthropathy Elevated liver enzymes Other nonspecific abnormal serum enzyme levels Coronary artery disease involving [place] coronary artery of [place] heart without angina pectoris PAD (peripheral artery disease) Peripheral vascular disease, unspecified [facility] Gout flare- Primary Acute gouty arthropathy Elevated liver enzymes- Primary Other nonspecific abnormal serum enzyme levels Elevated alkaline phosphatase level Other nonspecific abnormal serum enzyme levels Gout flare Acute gouty arthropathy Preventive measure- Primary Unspecified prophylactic or treatment measure Annual physical exam Routine general medical examination at a health care facility Decreased hearing Unspecified hearing loss Gout flare Acute gouty arthropathy Elevated liver enzymes Other nonspecific abnormal serum enzyme levels Coronary artery disease involving [place] coronary artery of [place] heart without angina pectoris documented in this encounter [facility] for referral (narrative)* Outpatient Procedure (Routine) - Pending Review Specialty Diagnoses / Procedures Referred By Baylee saini Referred To Contact [facility] [place] Diagnoses Coronary artery disease involving [place] coronary artery of [place] heart without angina pectoris Encounter for monitoring sotalol therapy Procedures ECG COMPLETE ECG ROUTINE ECG W/LEAST 12 LDS W/I&[place] [address] [place] [address] [address] Referral ID Status Reason Start Date Expiration Date Visits Requested Visits Authorized [id number] Pending Review Auto-Generat ed Referral 01/16/2022 01/16/2023 1 1 [facility] for referral (narrative)* Diagnostic Procedure Only (Routine) - Pending Review Specialty Diagnoses / Procedures Referred By Baylee saini Referred To Contact [facility] Diagnoses Encounter for screening mammogram for breast cancer Procedures KINJAL SCREENING SCREENING MAMMOGRAPHY BI 2-VIEW BREAST INC Carli Horn, KNITTER MACHINE.[employer] [address] [place] [address] [facility] [address] [place] [address] Referral ID Status Reason Start Date Expiration Date Visits Requested Visits Authorized [id number] Pending Review Auto-Generat ed Referral 04/11/2022 05/11/2023 1 1 [facility] for referral (narrative)* Outpatient Procedure (Routine) - Pending Review Specialty Diagnoses / Procedures Referred By Contac t Referred To Contact [facility] [place] Diagnoses Coronary artery disease involving [place] coronary artery of [place] heart without angina pectoris History of ME (myocardial infarction) Procedures ECHO ECHO TTHRC R-T 2D W/WOM-MODE COMPL SPEC&[place] [address] [place] [address] [address] Referral ID Status Reason Start Date Expiration Date Visits Requested Visits Authorized [id number] Pending Review Auto-Generat ed Referral 2 2023 1 1 * Outpatient Procedure (Routine) - Pending Review Specialty Diagnoses / Procedures Referred By Contac t Referred To [facility] Diagnoses Coronary artery disease involving [place] coronary artery of [place] heart without angina pectoris Procedures ECG COMPLETE ECG ROUTINE ECG W/LEAST 12 LDS W/I&[place] [address] [place] [address] [place] [id number] Referral ID Status Reason Start Date Expiration Date Visits Requested Visits Authorized [id number] Pending Review Auto-Generat ed Referral 2 2023 1 1 [facility] for referral (narrative)* Outpatient Procedure (Routine) - New Request Specialty Diagnoses / Procedures Referred By Contac t Referred To [facility] [place] Diagnoses History of ME (myocardial infarction) Presence of stent in LAD coronary artery Procedures ECHO ECHO TTHRC R-T 2D W/WOM-MODE COMPL SPEC&[place] [address] [place] [address] [address] Referral ID Status Reason Start Date Expiration Date Visits Requested Visits Authorized [id number] New Request Auto-Generat ed Referral 04/30/2024 04/30/2025 1 1 * Outpatient Procedure (Routine) - New Request Specialty Diagnoses / Procedures Referred By Contac t [facility] Diagnoses Coronary artery disease involving [place] coronary artery of [place] heart without angina pectoris Procedures ECG COMPLETE ECG ROUTINE ECG W/LEAST 12 LDS W/I&[place] [address] [place] [address] [facility] [place] [address] [place] [address] Referral ID Status Reason Start Date Expiration Date Visits Requested Visits Authorized [id number] New Request Auto-Generat ed Referral 04/30/2024 04/30/2025 1 1 [facility] Advance Directives Documents on File Type Date Recorded Patient Director Of Safety And Security Expl anation Advance Directive(s) 08/29/2018 1:08 PM Documents on File Type Date Recorded Patient Director Of Safety And Security Expl anation Advance Directive(s) 08/29/2018 1:08 PM Summary Purpose Family History No Family History Records FoundNo Family History Records Found Additional Source Comments Source Comments (unrecognize d section and content) In the event this informatio n is protected by the Federal Confidentiality of Alcohol and Drug Abuse Patient Records regulations: The Federal rules restrict any use of the information to criminally investigate or prosecute any alcohol or drug abuse patient.[facility] the event this information is protected by the Federal Confidentiality of Alcohol and Drug Abuse Patient Records regulations: The Federal rules restrict any use of the information to criminally investigate or prosecute any alcohol or drug abuse patient.[facility] the event this information is protected by the Federal Confidentiality of Alcohol and Drug Abuse Patient Records regulations: The Federal rules restrict any use of the information to criminally investigate or prosecute any alcohol or drug abuse patient.[facility] the event this information is protected by the Federal Confidentiality of Alcohol and Drug Abuse Patient Records regulations: The Federal rules restrict any use of the information to criminally investigate or prosecute any alcohol or drug abuse patient.[facility] the event this information is protected by the Federal Confidentiality of Alcohol and Drug Abuse Patient Records regulations: The Federal rules restrict any use of the information to criminally investigate or prosecute any alcohol or drug abuse patient.[facility] the event this information is protected by the Federal Confidentiality of Alcohol and Drug Abuse Patient Records regulations: The Federal rules restrict any use of the information to criminally investigate or prosecute any alcohol or drug abuse patient.[facility] the event this information is protected by the Federal Confidentiality of Alcohol and Drug Abuse Patient Records regulations: The Federal rules restrict any use of the information to criminally investigate or prosecute any alcohol or drug abuse patient.[facility] the event this information is protected by the Federal Confidentiality of Alcohol and Drug Abuse Patient Records regulations: The Federal rules restrict any use of the information to criminally investigate or prosecute any alcohol or drug abuse patient.[facility] the event this information is protected by the Federal Confidentiality of Alcohol and Drug Abuse Patient Records regulations: The Federal rules restrict any use of the information to criminally investigate or prosecute any alcohol or drug abuse patient.[facility] the event this information is protected by the Federal Confidentiality of Alcohol and Drug Abuse Patient Records regulations: The Federal rules restrict any use of the information to criminally investigate or prosecute any alcohol or drug abuse patient.[facility] the event this information is protected by the Federal Confidentiality of Alcohol and Drug Abuse Patient Records regulations: The Federal rules restrict any use of the information to criminally investigate or prosecute any alcohol or drug abuse patient.[facility] the event this information is protected by the Federal Confidentiality of Alcohol and Drug Abuse Patient Records regulations: The Federal rules restrict any use of the information to criminally investigate or prosecute any alcohol or drug abuse patient.[facility] the event this information is protected by the Federal Confidentiality of Alcohol and Drug Abuse Patient Records regulations: The Federal rules restrict any use of the information to criminally investigate or prosecute any alcohol or drug abuse patient.[facility] the event this information is protected by the Federal Confidentiality of Alcohol and Drug Abuse Patient Records regulations: The Federal rules restrict any use of the information to criminally investigate or prosecute any alcohol or drug abuse patient.[facility] the event this information is protected by the Federal Confidentiality of Alcohol and Drug Abuse Patient Records regulations: The Federal rules restrict any use of the information to criminally investigate or prosecute any alcohol or drug abuse patient.[facility] the event this information is protected by the Federal Confidentiality of Alcohol and Drug Abuse Patient Records regulations: The Federal rules restrict any use of the information to criminally investigate or prosecute any alcohol or drug abuse patient.[facility] the event this information is protected by the Federal Confidentiality of Alcohol and Drug Abuse Patient Records regulations: The Federal rules restrict any use of the information to criminally investigate or prosecute any alcohol or drug abuse patient.[facility] the event this information is protected by the Federal Confidentiality of Alcohol and Drug Abuse Patient Records regulations: The Federal rules restrict any use of the information to criminally investigate or prosecute any alcohol or drug abuse patient.[facility] the event this information is protected by the Federal Confidentiality of Alcohol and Drug Abuse Patient Records regulations: The Federal rules restrict any use of the information to criminally investigate or prosecute any alcohol or drug abuse patient.[facility] the event this information is protected by the Federal Confidentiality of Alcohol and Drug Abuse Patient Records regulations: The Federal rules restrict any use of the information to criminally investigate or prosecute any alcohol or drug abuse patient.[facility] the event this information is protected by the Federal Confidentiality of Alcohol and Drug Abuse Patient Records regulations: The Federal rules restrict any use of the information to criminally investigate or prosecute any alcohol or drug abuse patient.[facility] the event this information is protected by the Federal Confidentiality of Alcohol and Drug Abuse Patient Records regulations: The Federal rules restrict any use of the information to criminally investigate or prosecute any alcohol or drug abuse patient.[facility] the event this information is protected by the Federal Confidentiality of Alcohol and Drug Abuse Patient Records regulations: The Federal rules restrict any use of the information to criminally investigate or prosecute any alcohol or drug abuse patient.[facility] the event this information is protected by the Federal Confidentiality of Alcohol and Drug Abuse Patient Records regulations: The Federal rules restrict any use of the information to criminally investigate or prosecute any alcohol or drug abuse patient.[facility] Reason for Visit (unrecogniz ed section and content) Reason Comments Follow Up Reason Comments Refill Request Reason Comments CARD Follow Up 6 Month Reason Onset Date Comments Refill Request Refill Request 05/31/2023 Reason Comments Cardiology Follow Up - Generic Reason Comments Cough sob, nasal congestio n x 10 days Reason Onset Date Comments Refill Request 12/13/2024 Care Teams (unrecognized sec tion and content) Mr Teacher Relationship Specialty Start Date End Date Carli Galvan, KNITTER MACHINE.[employer] [address] [place] [address] PCP - General Family Practice 11/09/19 Mr Teacher Relationship Specialty Start Date End Date Carli Galvan, KNITTER MACHINE.[employer] [address] [place] [address] PCP - General Family Practice 11/09/19 Mr Teacher Relationship Specialty Start Date End Date Carli Galvan, KNITTER MACHINE.[employer] [address] [place] [address] PCP - General Family Practice 11/09/19 Mr Teacher Relationship Specialty Start Date End Date Carli Galvan, KNITTER MACHINE.[employer] [address] [place] [address] PCP - General Family Practice 11/09/19 Mr Teacher Relationship Specialty Start Date End Date Carli Galvan, KNITTER MACHINE.[employer] [address] [place] [address] PCP - General Family Practice 11/09/19 Mr Teacher Relationship Specialty Start Date End Date Carli Galvan, KNITTER MACHINE.[employer] [address] [place] [address] PCP - General Family Practice 11/09/19 Mr Teacher Relationship Specialty Start Date End Date Carli Galvan, KNITTER MACHINE.[employer] [address] [place] [address] PCP - General Family Practice 11/09/19 Mr Teacher Relationship Specialty Start Date End Date [facility] KNITTER MACHINE.[employer] [address] [place] [address] PCP - General Family Medicine 11/09/19 Mr Teacher Relationship Specialty Start Date End Date [facility]Car[facility], KNITTER MACHINE.[employer] [address] [place] [address] PCP - General Family Medicine 11/09/19 Mr Teacher Relationship Specialty Start Date End Date [facility]JannetteCarli, KNITTER MACHINE.[employer] [address] [place] [address] PCP - General Family Medicine 11/09/19 Mr Teacher Relationship Specialty Start Date End Date [facility], KNITTER MACHINE.[employer] [address] [place] [address] PCP - General Family Medicine 11/09/19 Mr Teacher Relationship Specialty Start Date End Date [facility]Val[facility], KNITTER MACHINE.[employer] [address] [place] [address] PCP - General Family Medicine 11/09/19 Mr Teacher Relationship Specialty Start Date End Date [facility], KNITTER MACHINE.[employer] [address] [place] [address] PCP - General Family Medicine 11/09/19 Mr Teacher Relationship Specialty Start Date End Date [facility]etteCarli, KNITTER MACHINE.[employer] [address] [place] [address] PCP - General Family Medicine 11/09/19 Mr Teacher Relationship Specialty Start Date End Date [facility] Carli, KNITTER MACHINE.[employer] [address] [place] [address] PCP - General Family Medicine 11/09/19 Mr Teacher Relationship Specialty Start Date End Date Carlos Quiroz [address] [place] [address] PCP - General Family Medicine 04/22/24 Mr Teacher Relationship Specialty Start Date End Date Carlos Quiroz [address] [place] [id number] PCP - General Family Medicine 04/22/24 Mr Teacher Relationship Specialty Start Date End Date Carlos Quiroz [address] [place] [address] PCP - General Family Medicine 04/22/24 Mr Teacher Relationship Specialty Start Date End Date Carlos Quiroz [address] [place] [address] PCP - General Family Medicine 04/22/24 Mr Teacher Relationship Specialty Start Date End Date Carlos Quiroz [address] [place] [address] PCP - General Family Medicine 04/22/24 Mr Teacher Relationship Specialty Start Date End Date Carlos Quiroz [address] [place] [address] PCP - General Family Medicine 04/22/24 Mr Teacher Relationship Specialty Start Date End Date Carlos Quiroz [address] [place] [address] PCP - General Family Medicine 04/22/24 Mr Teacher Relationship Specialty Start Date End Date Carlos Quiroz [address] [facility] [place] [address] PCP - General Family Medicine 04/22/24 INFORMATION SOURCE (unrecogn ized section and content) DATE CREATED AUTHOR 11/11/2024 [employer] [facility] DATE CREATED AUTHOR AUTHOR'S ORGANIZ ATION 11/11/2024 [facility] FOR RECORDS PERTAINING TO PATIENTS WHO ARE OR HAVE BEEN ENROLLED IN A CHEMICAL DEPENDENCY/SUBSTANCEABUSE PROGRAM, SOME INFORMATION MAY BE OMITTED. This clinical summary was aggregated from multiple sources. Caution should be exercised in using it in the provision of clinical care. This summary normalizes information from multiple sources, and as a consequence, information in this document may materially change the coding, format and clinical context of patient data. In addition, data may be omitted in some cases. CLINICAL DECISIONS SHOULD BE BASED ON THE PRIMARY CLINICAL RECORDS. [email or web address] provides no warranty or guarantee of the accuracy or completeness of information in this document.
[2025-08-28 18:28] LABS: Urine Bilirubin Dipstick 3 mg/dL (Negative)
[2025-08-28 18:39] LABS: Red Blood Cells-Urine 5-10 SEEN /hpf (0-5)
--- NOTE | 2025-08-28 18:42 | CT_ITS ---
PROCEDURE: ABDOMEN/PELVIS WITHOUT CONT 08/28/2025 REASON FOR EXAM: RENAL FAILURE, BILI ELEVATED TECHNIQUE: Procedure Code: CTABDPEL Modality: CT Procedure: ABDOMEN/PELVIS WITHOUT CONT Noncontrast technique limits evaluation of the abdominal and pelvic viscera. Coronal and Sagittal reconstruction series were provided. One or more dose reduction techniques were used (e.g., Automated exposure control, adjustment of the mA and/or kV according to patient size, use of iterative reconstruction technique). RADIATION DOSE SUMMARY: CTDlvol: 6.9 mGy DLP: 343 mGycm FINDINGS: Normal lumbar vertebral body height and alignment. The lung bases demonstrate no mass lesions. The noncontrast images of the liver, spleen and pancreas are grossly unremarkable with limited evaluation of the pancreas without contrast. The pancreatic head and specifically is poorly evaluated. There are 2 tubular structures in the retroperitoneum both of which bifurcate. I am therefore assuming that there has been some type of prior graft placement. This could also represent evidence of a prior aortic graft, as both the posterior aortic structure as well as the anterior structure both demonstrate tubular appearance extending into what appear to be iliac vessels. There is no free-fluid. There is no bowel obstruction. The larger ventral portion above the level of the aortoiliac bifurcation measures [address]/Abdomen/Pelvis without Cont IMPRESSION: Suspect probable treatment of the aortic aneurysm with 2 separate structures asher th bifurcating into what appear to be iliac vessels. Recommend confirmation of the suspicion with a contrast-enhanced stud y as well as correlation with the surgical history. It is my understanding the patient has renal failure. If this scan c an not be obtained I would consult vascular surgery Importantly, there is no extravasation of fluid on the current study to suggest rupture. A reading will be called at the time of dictation at 8:30 p.m. on 08/28/2025 to the ER [facility]
[2025-08-28 18:44] LABS: Squamous Epithelial Cells - UA 5-10 SEEN /hpf (5-10)
[2025-08-28 18:48] LABS: Fine Granular Cast- Urine 5-10 SEEN /lpf (0-5)
[2025-08-28 19:16] LABS: AST(SGOT) 149 U/L (<=31); Alanine Aminotransfer ALT/SGPT 127 U/L (<=34); Albumin, Serum 3.2 g/dL (3.4-4.8); Alkaline Phosphatase 3391 U/L (35-104); Bilirubin, Direct 2.58 mg/dL (0.00-0.30); Globulin 3.4 g/dL (2.2-4.2)
[2025-08-28 19:24] LABS: Troponin T High Sens 2 HR 18 ng/L (<=14)
[2025-08-28 19:51] LABS: Lipase 172 U/L (13-75)
--- NOTE | 2025-08-28 20:37 | CM.ED ---
Social Work Date of referral: 08/28/25 Reason for referral: Advanced Care Directives (ACD's) not on file Referred by: Social Work Identification Patient provided consent to social work visit. Licensed Land Surveyor requested a copy of patient's ACD's which patient stated she will bring in. Debbie Rolon, UNDERCUTTER OPERATOR, EXPORT SALES MANAGER
--- NOTE | 2025-08-28 21:31 | PCM.HP.STD ---
HPI - General General Date of Admission: 08/28/25 Date of Service: 08/28/25 Chief Complaint: Lightheadedness, dizziness. HPI Narrative The patient is a 70 y/o F w/ PMHx: CAD s/p PCI, PAF, PAD s/p previous chart documented aortofemoral bypass, HTN, HLD, GERD, CKD stage III unclear subtype per previous lab trending, Tobacco use who presents to the [facility] ED on 08/28/2025 with history unfortunately recent on 08/08/2025 and unfortunately following that she started to complain of intermittent lightheadedness especially with any movement with no specific symptoms with rest but notable lightheadedness with any activities or up and attempts at moving especially positional changes but no specific room spinning and no other specific paresthesias with dyspnea complaints however with exertion with no recent nausea, emesis, abdominal pain, URI type symptoms or stool losses with unfortunately creased appetite with decreased oral intake ongoing since the first of the year. Patient notes over the last 2 months she has had at least a 20 pound weight loss. She denies any nausea or vomiting. She denies any abdominal pain. She does report a history of a swollen lymph node that was tender to palpation but it since abated and this was in the last 4 to 5 days. She denies any sore throat or any URI type symptoms with this as well. She notes that her stools have been normal in color. She denies any blood in her stools. She denies any history of fevers or night sweats. Patient notes that her urine has been normal color except for day of presentation when she suddenly noticed that it was very dark. She denies any recent new medications or antibiotic therapies. She denies any urinary type symptoms. Workup in the ED included T97.6, heart rate 51, BP 105/57, respiratory rate 18, 99% on room air, significantly notable orthostatics, most recent repeat vitals heart rate 51, BP 104/62, respiratory rate 16, no percent room air, CBC with WC 10.4, hemoglobin 9.0, MCV 95.4, platelet 224 without marked shift, CMP with chloride 111, carbon dioxide 15.3, anion gap 14, BUN/creatinine 31/2.68, GFR 19, glucose 183, T. bili 3.32, D bili 2.58, AST/LT 149/127, alk phos 3391, troponin initial 21 with repeat delta 18, NT proBNPII 931, lipase 172, urinalysis with elevated specific Ratley 1.020, protein 500, occult blood 150, positive nitrite, leukocyte esterase 100, urine WBCs 10-25 with 3+ urine bacteria, chest x-ray with no acute cardiopulmonary findings, CT abdomen and pelvis without contrast with suspected probable previous treatment of an aortic aneurysm with 2 separate structures both bifurcating into what appeared to be iliac vessels, no evidence any extravasation to suggest any kind of rupture, EKG with sinus bradycardia with nonspecific ST-T wave changes no acute evidence of ischemia. In the ED patient ministered 2 L normal saline, Rocephin 1 g IV x 1. PFSH Medical History Dyslipidemia Tobacco abuse Hypertension PVD (peripheral vascular disease) CAD (coronary artery disease) Paroxysmal atrial fibrillation Cataract PAD (peripheral artery disease) Acid reflux Home Medications Medication Instructions Recorded Last Taken Type amlodipine 5 mg tablet 5 mg PO DAILY 03/01/15 05/08/15 History aspirin 81 mg tablet,delayed 81 mg PO DAILY@0800 03/01/15 05/08/15 History release isosorbide mononitrate 30 mg 30 mg PO DAILY 03/01/15 05/08/15 History tablet,extended release 24 hr rivaroxaban 20 mg tablet (Xarelto) 20 mg PO DAILY 03/01/15 05/08/15 History rosuvastatin 40 mg tablet (Crestor) 40 mg PO QHS 03/01/15 05/08/15 History sotalol 80 mg tablet (Betapace AF) 40 mg PO BID 03/01/15 05/09/15 09:00 History lisinopril 40 mg tablet 40 mg PO DAILY 08/28/25 Unknown History Allergy/AdvReac Type Severity Reaction Status Date / Time cephalexin monohydrate (From Allergy Itching Verified 08/28/25 16:45 Keflex) sulfamethoxazole (From Allergy Rash Verified 08/28/25 16:45 Bactrim) trimethoprim (From Bactrim) Allergy Rash Verified 08/28/25 16:45 atorvastatin calcium (From AdvReac Pain in Verified 08/28/25 16:45 Lipitor) joints adopted (Patient does not know her paternal/maternal family history secondary to being adopted.) Surgical History H/O aorto-femoral bypass H/O heart artery stent S/P cholecystectomy Social History household members: spouse Smoking Status: Current every day smoker tobacco type: cigarettes alcohol intake: current alcohol intake frequency: holidays/special occasions only substance use type: does not use ROS ROS Narrative Admission Review of Systems: CONSTITUTIONAL: No fever, chills, + weight loss, weakness or fatigue. HEENT: + Denies knowledge of it but mildly jaundiced appearance, lightheadedness/dizziness. Eyes: No visual loss, blurred vision, double vision. Ears, Nose, Throat: No hearing loss, sneezing, congestion, runny nose or sore throat. SKIN: No rash or itching, lesions, wounds. CARDIOVASCULAR: + Lightheadedness/dizziness. No chest pain, chest pressure or chest discomfort, palpitations, edema, orthopnea, syncopal events. RESPIRATORY: + Occasional dyspnea with exertion. No cough or sputum, wheezing, hemoptysis. GASTROINTESTINAL: + Decreased appetite. No nausea, vomiting, diarrhea, abdominal pain, melena, BRBPR. GENITOURINARY: + Dark appearing urine. No dysuria, frequency, urgency or retention. NEUROLOGICAL: + Lightheadedness, dizziness. No headache,paralysis, ataxia, numbness or tingling in the extremities, focal weakness, change in bowel or bladder control, seizure. MUSCULOSKELETAL: + muscle, back pain, joint pain or stiffness. HEMATOLOGIC: + Suspected chronic anemia, easy bruising/bruising. LYMPHATICS: + Recent history of enlarged cervical lymph node. No history of splenectomy. PSYCHIATRIC: No history of depression or anxiety. ENDOCRINOLOGIC: No reports of sweating, cold or heat intolerance. No polyuria or polydipsia. ALLERGIES: No history of asthma, hives, eczema or rhinitis. Vital Signs Vital Signs Vital Signs: 08/28/25 16:45 08/28/25 17:50 08/28/25 17:58 Temperature 97.6 F L Temperature Source Oral Pulse Rate 51 L 45 L Pulse Rate [Lying] 48 L Pulse Rate [Sitting (for 1 minute prior to obtaining)] 47 L Pulse Rate [Standing (for 1 minute prior to obtaining)] 57 L Respiratory Rate 18 16 Blood Pressure 105/57 L 96/55 L Blood Pressure [Lying] 115/49 L Blood Pressure [Sitting (for 1 minute prior to obtaining)] 111/57 L Blood Pressure [Standing (for 1 minute prior to obtaining)] 65/41 L Blood Pressure Mean 73 68 Blood Pressure Mean [Lying] 71 Blood Pressure Mean [Sitting (for 1 minute prior to obtaining)] 75 Blood Pressure Mean [Standing (for 1 minute prior to obtaining)] 49 Pulse Ox 99 100 Oxygen Delivery Method Room Air 08/28/25 18:57 Temperature Temperature Source Pulse Rate 51 L Pulse Rate [Lying] Pulse Rate [Sitting (for 1 minute prior to obtaining)] Pulse Rate [Standing (for 1 minute prior to obtaining)] Respiratory Rate 16 Blood Pressure 104/62 Blood Pressure [Lying] Blood Pressure [Sitting (for 1 minute prior to obtaining)] Blood Pressure [Standing (for 1 minute prior to obtaining)] Blood Pressure Mean 76 Blood Pressure Mean [Lying] Blood Pressure Mean [Sitting (for 1 minute prior to obtaining)] Blood Pressure Mean [Standing (for 1 minute prior to obtaining)] Pulse Ox 100 Oxygen Delivery Method Room Air Weight Weight: 149 lb 0.52 oz Body Mass Index (BMI) 26.4 Physical Exam Narrative Physical Examination: General: Awake, alert, oriented x 3 and cooperative, seated upright in bed, no acute distress, eating a sandwich and comfortable appearing. Skin: Normal color, normal turgor, no cyanosis, mildly jaundiced appearance, very mild tinge scleral icterus, occasional stage ecchymoses, abrasion. HEENT: AT/NC, EOMI, PERRLA, dry MM, no carotid bruits or JVD noted, no obvious significant persistent cervical lymphadenopathy/tenderness. Lungs: Mild diminished, greater bases, mildly increased respiratory rate but no distress, no rales, ronchi or wheezing. Heart: Bradycardic with regular rhythm; no gallop, rub audible. Abdomen: Soft, NTTP, ND, mildly hyperactive BS, no markedly appreciated HSM. Extremities: No cyanosis, no clubbing, no significant distal edema. Neurological: Patient awake, alert, oriented as noted, cognitive function intact; pupils equally reactive to light and accommodation, cranial nerves grossly normal, moving all 4 extremities, no focal deficits, strength mildly to moderately globally decreased Psychiatric: Affect appears fatigued otherwise normal, no acute evidence of depressive or anxiety feelings. Results Lab / Micro Data 08/28/25 16:57 08/28/25 16:57 Labs: Laboratory Results - last 24 hr 08/28/25 16:57: WBC 10.4, RBC 3.07 L, Hgb 9.0 L, Hct 29.3 L, MCV 95.4, MCH 29.3, MCHC 30.7 L, RDW Std Deviation 63.7 H, RDW Coeff of Aisha 18.3 H, Plt Count 224, MPV 11.4, Immature Gran % (Auto) 0.600, Neut % (Auto) 67.9, Lymph % (Auto) 21.0, [place] % (Auto) 4.5, Eos % (Auto) 5.1 H, Baso % (Auto) 0.9, Absolute Neuts (auto) 7.1, Absolute Lymphs (auto) 2.19, Nucleated RBC % 0, Sodium 140, Potassium 3.7, Chloride 111 H, Carbon Dioxide 15.3 L, Anion Gap 14, BUN 31 H, Creatinine 2.68 H, Estim Creat Clear Calc 18.03 L, Est GFR (MDRD) Non-Af 19 L, BUN/Creatinine Ratio 11.7, Glucose 183 H, Calcium 8.9, Total Bilirubin 3.32 H, Direct Bilirubin 2.58 H, AST 149 H, ALT 127 H, Alkaline Phosphatase 3391 H, Troponin T High Sens 21 H, NT pro BNP II 931 H, Total Protein 6.6, Albumin 3.2 L, Globulin 3.4, Lipase 172 H 08/28/25 17:47: Urine Color Yellow, Urine Clarity Clear, Urine pH 6.0, Ur Specific Lapaz 1.020, Urine Protein 500 H, Urine Glucose (UA) Normal, Urine Ketones Negative, Urine Occult Blood 150 H, Urine Nitrite Positive H, Urine Bilirubin 3 H, Urine Urobilinogen 4 H, Ur Leukocyte Esterase 100 H, Urine RBC 5-10 SEEN, Urine WBC 10-25 SEEN, Ur Squamous Epith Cells 5-10 SEEN, Urine Bacteria 3+, Hyaline Casts 0-5 SEEN, Fine Granular Casts 5-10 SEEN, Urine Mucus 0 SEEN 08/28/25 19:03: Troponin T Hi Sens 2 Hr 18 H Imaging Radiology Impression Chest X-Ray 08/28/25 17:19 IMPRESSION: No acute abnormality Reading Location: [facility] Abdomen/Pelvis CT 08/28/25 18:42 IMPRESSION: Suspect probable treatment of the aortic aneurysm with 2 separate structures both bifurcating into what appear to be iliac vessels. Recommend confirmation of the suspicion with a contrast-enhanced study as well as correlation with the surgical history. It is my understanding the patient has renal failure. If this scan can not be obtained I would consult vascular surgery Importantly, there is no extravasation of fluid on the current study to suggest rupture. A reading will be called at the time of dictation at 8:30 p.m. on 08/28/2025 to the ER Reading Location: [facility] Assessment & Plan Assessment/Plan (1) UTI (urinary tract infection): PLAN: Plan The patient is a 70 y/o F w/ PMHx: CAD s/p PCI, PAF, PAD s/p previous chart documented aortofemoral bypass, HTN, HLD, GERD, CKD stage III unclear subtype per previous lab trending, Tobacco use who presents to the [facility] ED on 08/28/2025 with history unfortunately recent on 08/08/2025 and unfortunately following that she started to complain of intermittent lightheadedness especially with any movement with no specific symptoms with rest but notable lightheadedness with any activities or up and attempts at moving especially positional changes but no specific room spinning and no other specific paresthesias with dyspnea complaints however with exertion with no recent nausea, emesis, abdominal pain, URI type symptoms or stool losses with unfortunately creased appetite with decreased oral intake ongoing since the first of the year. #1. Acute Complicated Urinary Tract Infection: Will admit to PCU, UA upon ED evaluation remarkable, pending UCx, will continue IVFs, monitor I/Os, continue IV Rocephin w/ transition as able pending sensitivities and speciation. PT/OT/case management consulted for discharge planning. #2. Significant hyperbilirubinemia, transaminitis of unclear etiology: Admission T. bili 3.32, D bili 2.58, AST/LT 149/127, alk phos 3-3 91, unclear etiology, given acute kidney injury presentation will continue hydration, repeat CMP in a.m., may require further imaging and given inability to use IV contrast may need to consider MRCP or GI involvement pending ongoing trending, in the interim we will obtain liver ultrasound and will also obtain coags. If coags are significantly altered although would expect some change with NOAC will hold Xarelto given would be concerning for auto anticoagulation. #3. Lightheadedness, dizziness with significant orthostasis, multifactorial, likely secondary to noted above: Notable orthostatic vital signs in ED, likely secondary to poor intake unfortunately, will maintain on fall precautions, continue hydration, will plan repeat orthostatics in a.m., continue treatment and evaluation as noted after cautious given significant underlying history will also obtain echocardiogram. #4. Normocytic anemia, appears acute in chronicity but unclear timeline given remote labs: Admission hemoglobin 9.0, MCV 95.4, previously had been primarily 12-13 range however this is remote from 2015, will obtain iron panel, ferritin, stool guaiac to be cautious, continue to trend CBC. #5. Acute kidney injury on CKD stage III unclear subtype of previous GFR trending: Secondary to possibly poor intake/dehydration, 41/2.68, GFR 19. Admission BUN/Cr 31/2.68, GFR 19, prior baseline creatinine noted to be primarily 1.2-1.5. Will hydrate, hold nephrotoxic medications and repeat chemistry in AM. Will obtain FeNa assessment. If not clinically improving with treatment as noted low threshold to involve nephrology. #6. Incidentally noted likely previous treatment aortic aneurysm with 2 separate structures both bifurcating and what appears to be iliac vessel with no evidence of any extravasation with history and remote charting from 2014 of aortofemoral bypass but unclear specifics: Unfortunately given renal function at this time not appropriate for CT contrast study, will continue treatment as noted, repeat function and if improving obtain otherwise may need to consider vascular surgery evaluation to be cautious. #7. Hyperglycemia without reported diabetic history: Admission glucose 183, given underlying significant history will obtain hemoglobin A1c. #8. CAD: Status post previous PCI, will continue aspirin, Xarelto, statin, holding hypertensive regimen given significant orthostatic presentation with lower blood pressure, add back once clinically appropriate. Will continue Crestor if in fact taking as patient does have listed statin allergy with this to Lipitor. If coags are significantly altered although would expect some change with NOAC will hold Xarelto given would be concerning for auto anticoagulation. #9. PAD: Status post previous chart documented aortofemoral bypass as noted above, will continue aspirin, Xarelto, will continue Crestor if in fact taking as patient does have listed statin allergy but this is to Lipitor, holding hypertensive regimen given low blood pressure, add back once clinically appropriate. No diabetic history. If coags are significantly altered although would expect some change with NOAC will hold Xarelto given would be concerning for auto anticoagulation. #10. Hypertension: Given significant orthostasis will hold all hypertensive regimen, add back once clinically appropriate. #11. Hyperlipidemia: Per current list on a regimen with intolerance noted in allergy history, currently listed on Crestor, will continue if in fact taking. #12. PAF: Will continue patient home sotalol and Xarelto regimen. If coags are significantly altered although would expect some change with NOAC will hold Xarelto given would be concerning for auto anticoagulation. #13. GERD: Not on regimen, will have as needed Mylanta. #14. DVT prophylaxis: Will continue Xarelto regimen while investigating anemia as noted above, low threshold to hold if appropriate. If coags are significantly altered although would expect some change with NOAC will hold Xarelto given would be concerning for auto anticoagulation. #15. CODE status: Patient does not have healthcare power of health care attorney or living will in place but notes her who is present would be her medical decision-maker if necessary. Discussed CODE status at length including difference between FULL code, DNR-CCA and DNR-CC status. Following discussions about the differences in these status, requested Full Code status. Advanced Care Planning Face to Face Time: 16 minutes. Charges/Coding Visit Charges Inpatient E&M: 49144 Init Hosp L3 Procedures Hospitalists Procedures: 92975 Advncd Care Plan 30 Min
--- OUTSIDE RECORDS SUMMARY | 2025-08-28 21:58 | XMS RPT_ITS | CCD ---
Author Organization [facility] Inform ion Partnership [facility] Care Team Providers Care Retail Stocker Name Role Phone Cole HERNADEZCarli KWAN Primary Care Provider Carlos Quiroz Primary Care Provider CARLOS QUIROZ Primary Care Unavailabl e JHONNY MEDEL Attending Unavailable CARLOS QUIROZ Primary Care Unavailabl e Allergies Allergy Classification Reported Allergen(s) Allergy Type Date of Onset Reaction(s) Facility (20 sources) atorvastatin; Translations: [ATORVASTATIN CALCIUM] Drug Allergy 09-22-2012 Other: See Comments [facility] (20 sources) Cephalexin; Translations: [CEPHALEXIN] Drug Allergy 09-24-2011 Unknown [facility] (20 sources) Ciprofloxacin; Translations: [CIPROFLOXACIN] Drug Allergy 05-26-2015 Rash [facility] (20 sources) Doxycycline; Translations: [DOXYCYCLINE] Drug Allergy 11-09-2019 GI Upset [facility] Work Phone: (20 sources) Sulfamethoxazole ; Translations: [SULFAMETHOXAZOL E] Drug Allergy 12-08-2012 [facility] (20 sources) Trimethoprim; Translations: [TRIMETHOPRIM] Drug Allergy 12-08-2012 [facility], Swelling [facility] Medications Current Medications Medication Drug Class(es) Dates Sig (Normalized) Sig (Original) [id number] 200 actuat albuterol 0.09 mg/actuat metered dose [...] Primary hypertension , Coronary artery disease involving [place] coronary artery of [place] heart without angina pectoris , PAD (peripheral [...] hr tablet Indications: Coronary artery disease involving [place] coronary artery of [place] heart without angina pectoris , PAD (peripheral [...] mg tablet Indications: Coronary artery disease involving [place] coronary artery of [place] heart without angina pectoris Take 1 tablet [...] Primary hypertension , Coronary artery disease involving [place] coronary artery of [place] heart without angina pectoris , PAD (peripheral [...] Primary hypertension , Coronary artery disease involving [place] coronary artery of [place] heart without angina pectoris , PAD (peripheral [...] Coronary atherosclerosis; Translations: [Atherosclerotic heart disease of [place] coronary artery without angina pectoris] Onset: 09-16-2012 [...] aftercare (20 sources) Drug therapy finding; Translations: [senior care (current) use of anticoagulants] Onset: 2 Episodic [...] 11-10-2024 36 Spoke to patient, no questions. [facility] 36 Currently not taking new patients until we get more help in the office [facility] 36 Name of caller: Priyank Holguin Contact phone number: [phone] Relationship to Patient: patient Provider: Dr. Quiroz [...] business hours to return their call: Yes [facility] CNOVon 11-10-2024 [facility] Office Visit (UCWSTR ) -------- KIMBERMIRELLA RANDALLS Gillian ([id number]) 1955 F Date Time Provider Department 11/10/24 11:45 AM MARIANA MELGAR [facility] During your visit today, we recorded the following information about you: Temperature Pulse Respiration Blood pressure 97.5 degrees 66/minute 16/minute 128/80 Weight 75.9 kg Mariana Melgar PA-C 11/10/2024 12:09 PM Signed This note was created using Gotuitter. Subjective Maria Teresa Quiroga is a 69 year old female. Patient is a 69-year-old female who is brought by caregiver for evaluation of worsening cough and shortness of breath that she has been experiencing for the past 2 weeks. Patient reports no congestion, sinus pressure, ear pain or sore throat. Patient has no history of asthma or COPD but does have an approximate 47-nypm-znye history of tobacco use and continues to [...] 7 days. (more content not included)... Normal [facility] CNOVon 04-30-2024 CNOV Office Visit (CARDBD ) -------- MARIA TERESA QUIROGA ([id number]) 1955 F Date Time Provider Department 04/30/24 3:40 PM JHONNY MEDEL [facility] During your visit today, we recorded the following information about you: Pulse Blood pressure Weight Height 54/minute 134/78 82.6 kg 1.6 m Jhonny Medel MD 04/30/2024 4:39 PM Signed [facility] [place] [facility] Department of Cardiovascular Medicine [...] DO echo 12/2014 CONCLUSIONS: - Exam indication: CAD/HI/AFib - The left ventricle is normal in [...] (mg/dL) Date (more content not included)... Normal [facility] [id number] 04-30-2024 ECG01 Ventricular Rate : 5 4 BPM Atrial Rate : 54 BPM P-R Interval : 130 ms QRS Duration : 86 ms Q-T Interval : 492 ms QTC Calculation(Bazett) : 466 ms Calculated P Navarro : 62 degrees Calculated R Navarro : 1 degrees Calculated T Navarro : [address] & INFERIOR T WAVE ABNORMALITY ST & ANTEROLATERAL T WAVE ABNORMALITY ABNORMAL ECG Confirmed by MD MEDEL MATTHEW ([id number]), editor department RONDA EDWARDS ([id number]) on 04/30/2024 4:09:10 PM NAME : MARIA TERESA HOLGUIN PID : [id number] : 1955 Gender : Female Race : ORD : Procedure Date : Apr 30 2024 15:39:24 Edit Date : Apr 30 2024 16:09:11 Diagnosis: SINUS BRADYCARDIA ST & INFERIOR T WAVE ABNORMALITY ST & ANTEROLATERAL T WAVE ABNORMALITY ABNORMAL ECG Confirmed by MD MEDEL MATTHEW ([id number]), editor department RONDA EDWARDS ([id number]) on 04/30/2024 4:09:10 PM Test Reason : Location : 503 : CARD Overread By : MD MEDEL MATTHEW Edited By : RONDA EDWARDS Referred By : LATRELL,M Acquired by : , Normal [facility] Vital Signs Date Time Vital Sign Value Performing Clinician Sharmin serna 11-10-2024 11:45-0500 Body mass index (BMI) [Ratio] 29.64 kg/m2 Mariana Clutter PA-C Work Phone: [facility] 11-10-2024 11:45-0500 Body temperature 97.5 [degF] Mariana Clutter PA-C Work Phone: [facility] 11-10-2024 11:45-0500 Body weight 75.9 kg Mariana Clutter PA-C Work Phone: [facility] 11-10-2024 11:45-0500 Diastolic blood pressure 80 mm[Hg] Mariana Clutter PA-C Work Phone: [facility] 11-10-2024 11:45-0500 Heart rate 66 /min Mariana Clutter PA-C Work Phone: [facility] 11-10-2024 11:45-0500 Respiratory rate 16 /min Mariana Clutter PA-C Work Phone: [facility] 11-10-2024 11:45-0500 SaO2% (BldA) [Mass fraction] 96 % Mariana Clutter PA-C Work Phone: [facility] 11-10-2024 11:45-0500 Systolic blood pressure 128 mm[Hg] Mariana Clutter PA-C Work Phone: [facility] 04-30-2024 15:37-0400 Body height 160 cm Jhonny Medel MD Work Phone: [facility] 04-30-2024 15:37-0400 Body mass index (BMI) [Ratio] 32.24 kg/m2 Jhonny Medel MD Work Phone: [facility] 04-30-2024 15:37-0400 Body weight 82.56 kg Jhonny Medel MD Work Phone: [facility] 04-30-2024 15:37-0400 Diastolic blood pressure 78 mm[Hg] Jhonny Medel MD Work Phone: [facility] 04-30-2024 15:37-0400 Heart rate 54 /min Jhonny Medel MD Work Phone: [facility] 04-30-2024 15:37-0400 Systolic blood pressure 134 mm[Hg] Jhonny Medel MD Work Phone: [facility] 2022 15:36-0400 Body height 160 cm Jhonny Medel MD Work Phone: [facility] 2022 15:36-0400 Body weight 84.37 kg Jhonny Medel MD Work Phone: [facility] 2022 15:36-0400 Diastolic blood pressure 72 mm[Hg] Jhonny Medel MD Work Phone: [facility] 2022 15:36-0400 Heart rate 60 /min Jhonny Medel MD Work Phone: [facility] 2022 15:36-0400 Systolic blood pressure 122 mm[Hg] Jhonny Medel MD Work Phone: [facility] 01-16-2022 13:53-0400 Body height 160 cm Jhonny Medel MD Work Phone: [facility] 01-16-2022 13:53-0400 Body weight 83.92 kg Jhonny Medel MD Work Phone: [facility] 01-16-2022 13:53-0400 Diastolic blood pressure 86 mm[Hg] Jhonny Medel MD Work Phone: [facility] 01-16-2022 13:53-0400 Heart rate 57 /min Jhonny Medel MD Work Phone: [facility] 01-16-2022 13:53-0400 Systolic blood pressure 136 mm[Hg] Jhonny Medel MD Work Phone: [facility] Encounters Encounter Date Encounter Type Care Provider [...] 12-02-2024 Refill Mariana Clutter PA-C Work Phone: [facility] Comment on above: Refill Request Start: 11-10-2024 End: 11-10-2024 ambulatory CARLOS QUIROZ Facility:[facility] Start: 11-10-2024 End: 11-10-2024 Office outpatient new 30 minutes Mariana Clutter PA-C Work Phone: [facility] Comment on above: Persistent cough for 3 weeks or longer (Primary Dx); Bronchitis; Tobacco abuse Start: 04-30-2024 End: 04-30-2024 ambulatory JHONNY MEDEL Facility:[facility] Start: 04-30-2024 End: 04-30-2024 Patient encounter procedure Jhonny Medel MD Work Phone: Cardiology Comment on above: Coronary artery dise ase involving [place] coronary artery of [place] heart without angina pectoris (Primary Dx); History of HI (myocardial infarction) December 2008; s/p PCI with JIM to the LAD 12/2008; PAD (peripheral artery disease) ([facility]); H/O aorto-femoral bypass for occluded aorta 2009; Paroxysmal atrial fibrillation ([facility]); Encounter for monitoring sotalol therapy; Anticoagulated by anticoagulation treatment (Xarelto); Primary hypertension; Pure hypercholesterolemia; Tobacco abuse; Stage 3a chronic kidney disease ([facility]) Start: 04-16-2024 Refill Jhonny velez MD Work Phone: Cardiology Comment on above: Refill Request Start: 03-30-[address], MD, PhD Work Phone: Cardiology Comment on above: Refill Request Start: 11-03-2023 ambulatory Jhonny velez MD Work Phone: Cardiology Comment on above: labs Start: 11-03-2023 E-mail encounter fro m caregiver Jhonny Medel MD Work Phone: [facility] Start: 06-19-2023 Refill Jhonny velez MD Work Phone: Cardiology Comment on above: Refill Request Start: 05-31-2023 Refill Jhonny velez MD Work Phone: Cardiology Comment on above: Refill Request; Refi ll Request Start: 05-02-2023 Refill Jhonny velez MD Work Phone: Cardiology Comment on above: Refill Request Start: 04-08-2023 Refill Jhonny velez MD Work Phone: Cardiology Comment on above: Refill Request Start: 2022 End: 2022 Patient encounter procedure Jhonny Medel MD Work Phone: Cardiology Comment on above: Coronary artery dise ase involving [place] coronary artery of [place] heart without angina pectoris (Primary Dx); History of HI (myocardial infarction) December 2008; s/p PCI with JIM to the LAD 12/2008; PAD (peripheral artery disease) ([facility]); H/O aorto-femoral bypass for occluded aorta 2009; Paroxysmal atrial fibrillation ([facility]); Encounter for monitoring sotalol therapy; Anticoagulated by anticoagulation treatment (Xarelto); Pure hypercholesterolemia; Tobacco abuse; Stage 3a chronic kidney disease ([facility]); Sciatica of left side Start: 06-10-2022 Refill [...] Refill Request Start: 04-11-2022 ambulatory Carlisapphire calles [employer] Work Phone: [facility] [place] Start: 03-16-2022 Get Medical Advice Jhonny Medel MD Work Phone: Cardiology Comment on above: Xarelto refill Start: 03-12-2022 Refill Kirk Lopezwild [employer] Work Phone: Cardiology Comment on above: Refill Request Start: 01-16-2022 End: 01-16-2022 Patient encounter procedure Jhonny Medel MD Work Phone: Cardiology Comment on above: Coronary artery dise ase involving [place] coronary artery of [place] heart without angina pectoris (Primary Dx); History of HI (myocardial infarction) December 2008; s/p PCI with JIM to the LAD 12/2008; PAD (peripheral artery disease) ([facility]); H/O aorto-femoral bypass for occluded aorta 2009; Paroxysmal atrial fibrillation ([facility]); Encounter for monitoring sotalol therapy; Anticoagulated by anticoagulation treatment (Xarelto); Pure hypercholesterolemia; Tobacco abuse; Stage 3a chronic kidney disease ([facility]) Procedures Date Procedure Procedure Detail Performing Clinician Start: 10-31-2023 Lipid 1996 panel - S chet or Plasma Jhonny Medel MD Work Phone: Start: 11-06-2019 Adult depression scr eening assessment Jhonny Medel MD Work Phone: Start: 05-22-2016 Mammography Jhonny hernandez MD Work Phone: Plan of Treatment Date Care Activity Detail Author Start: 10-31-2028 Lipid panel Lipid Screening [facility] Start: 10-31-2026 Diabetes Screening Diabetes Screenin g [facility] Start: 10-12-2026 LIPID SCREEN LIPID SCREEN [facility] Start: 09-21-2025 End: 09-21-2025 Patient encounter procedure 09/21/2025 3:40 PM EST Office Visit Cardiology [address] [place] [address] [place] [address] [place] [address] 6 month follow up Cardiology Comment on above: 6 month follow up Start: 06-14-2025 Influenza vaccination Influenz a Vaccine (Season Ended) [facility] Start: 03-18-2025 End: 06-17-2025 CBC panel - Blood by Automated count COMPLETE BLOOD COUNT Lab Routine Primary hypertension Coronary artery disease involving [place] coronary artery of [place] heart without angina pectoris PAD (peripheral artery disease) Expected: 03/18/2025 (Approximate), Expires: 06/17/2025 [facility] Comment on above: Expected: 03/18/2025 (Approximate), Expires: 06/17/2025 Start: 03-18-2025 End: 06-17-2025 LIPID PANEL, NONFASTING LIPID PANEL, NONFASTING Lab Routine Primary hypertension Coronary artery disease involving [place] coronary artery of [place] heart without angina pectoris PAD (peripheral artery disease) Expected: 03/18/2025 (Approximate), Expires: 06/17/2025 [facility] Comment on above: Expected: 03/18/2025 (Approximate), Expires: 06/17/2025 Start: 10-31-2024 Complete blood count Hemoglobin/Domenico tocrit [facility] Start: 10-31-2024 Creatinine measurement Serum Creatin ine [facility] Start: 10-31-2024 Hepatitis B surface antibody level LDL Cholesterol [facility] Start: 10-29-2024 End: 10-29-2024 Patient encounter procedure 10/29/2024 3:40 PM EST Office Visit Cardiology [address] [place] [address] [place] [address] [place] [address] 6 month follow up Cardiology Comment on above: 6 month follow up Start: 10-14-2024 Advance Directive Discussion Advance Directive Discussion [facility] Start: 10-12-2024 DIABETES SCREEN DIABETES SCREEN [facility] Start: 06-14-2024 Covid-19 Vaccine () Covid-19 Vaccine () [facility] Start: 06-14-2024 Influenza vaccination [facility] Start: 04-30-2024 End: 04-30-2024 Patient encounter procedure 04/30/2024 3:40 PM EDT Office Visit Cardiology [address] [place] [address] [place] [address] [place] [address] Return in about 6 months (around 04/30/2024). Cardiology Comment on above: Return in about 6 mo nths (around 04/30/2024). Start: 04-30-2024 End: 07-30-2024 CBC panel - Blood by Automated count COMPLETE BLOOD COUNT Lab Routine Coronary artery disease involving [place] coronary artery of [place] heart without angina pectoris Expected: 04/30/2024, Expires: 07/30/2024 [facility] Comment on above: Expected: 04/30/2024 , Expires: 07/30/2024 Start: 04-30-2024 End: 07-30-2024 Comprehensive metabolic 2000 panel - Serum or Plasma COMPREHENSIVE METABOLIC PANEL Lab Routine Coronary artery disease involving [place] coronary artery of [place] heart without angina pectoris Expected: 04/30/2024, Expires: 07/30/2024 [facility] Comment on above: Expected: 04/30/2024 , Expires: 07/30/2024 Start: 04-30-2024 End: 07-30-2024 LIPID PANEL, NONFASTING LIPID PANEL, NONFASTING Lab Routine Coronary artery disease involving [place] coronary artery of [place] heart without angina pectoris Expected: 04/30/2024, Expires: 07/30/2024 [facility] Comment on above: Expected: 04/30/2024 , Expires: 07/30/2024 Start: 10-14-2023 Advance Directive Discussion Advance Directive Discussion [facility] Start: 10-14-2023 Behavioral Health Screening Behavioral Health Screening [facility] Start: 10-14-2023 Depression Assessment Depression Ass essment [facility] Start: 2023 BP CONTROLLED (<130/80) BP CONTROLLE D (<130/80) [facility] Start: 06-14-2023 Covid-19 Vaccine () Covid-19 Vaccine () [facility] Start: 06-14-2023 Influenza vaccination C [facility] Start: 05-02-2023 End: 07-02-2023 CBC panel - Blood by Automated count CBC Lab Routine Primary hypertension Coronary artery disease involving [place] coronary artery of [place] heart without angina pectoris PAD (peripheral artery disease) (HCC) Expected: 05/02/2023, Expires: 07/02/2023 [facility] Work Phone: Comment on above: Expected: 05/02/2023 , Expires: 07/02/2023 Start: 05-02-2023 End: 07-02-2023 Comprehensive metabolic 2000 panel - Serum or Plasma COMP METABOLIC PANEL Lab Routine Primary hypertension Coronary artery disease involving [place] coronary artery of [place] heart without angina pectoris PAD (peripheral artery disease) (HCC) Expected: 05/02/2023, Expires: 07/02/2023 [facility] Work Phone: Comment on above: Expected: 05/02/2023 , Expires: 07/02/2023 Start: 05-02-2023 End: 07-02-2023 Lipid 1996 panel - Serum or Plasma LIPID PANEL BASIC Lab Routine Primary hypertension Coronary artery disease involving [place] coronary artery of [place] heart without angina pectoris PAD (peripheral artery disease) (HCC) Expected: 05/02/2023, Expires: 07/02/2023 [facility] Work Phone: Comment on above: Expected: 05/02/2023 , Expires: 07/02/2023 Start: 01-20-2023 End: 03-22-2023 CBC panel - Blood by Automated count CBC Lab Routine Coronary artery disease involving [place] coronary artery of [place] heart without angina pectoris Expected: 01/20/2023 (Approximate), Expires: 03/22/2023 [facility] Work Phone: Comment on above: Expected: 01/20/2023 (Approximate), Expires: 03/22/2023 Start: 01-20-2023 End: 03-22-2023 Comprehensive metabolic 2000 panel - Serum or Plasma COMP METABOLIC PANEL Lab Routine Coronary artery disease involving [place] coronary artery of [place] heart without angina pectoris Expected: 01/20/2023 (Approximate), Expires: 03/22/2023 [facility] Work Phone: Comment on above: Expected: 01/20/2023 (Approximate), Expires: 03/22/2023 Start: 01-20-2023 End: 03-22-2023 Lipid 1996 panel - Serum or Plasma LIPID PANEL BASIC Lab Routine Coronary artery disease involving [place] coronary artery of [place] heart without angina pectoris Expected: 01/20/2023 (Approximate), Expires: 03/22/2023 [facility] Work Phone: Comment on above: Expected: 01/20/2023 (Approximate), Expires: 03/22/2023 Start: 10-14-2022 ADVANCE DIRECTIVE DISCUSSION ADVANCE DIRECTIVE DISCUSSION [facility] Start: 10-14-2022 [facility] Start: 10-12-2022 HEMOGLOBIN/HEMATOCRIT HEMOGLOBIN/HEM ATOCRIT [facility] Start: 10-12-2022 Hepatitis B surface antibody level LDL CHOLESTEROL [facility] Start: 10-12-2022 SERUM CREATININE SERUM CREATININE [facility] Start: 07-18-2022 End: 09-17-2022 Basic metabolic 2000 panel - Serum or Plasma BASIC METABOLIC PNL Lab Routine Encounter for monitoring sotalol therapy Expected: 07/18/2022 (Approximate), Expires: 09/17/2022 [facility] Work Phone: Comment on above: Expected: 07/18/2022 (Approximate), Expires: 09/17/2022 Start: 06-14-2022 Influenza vaccination [facility] Start: 10-14-2021 ADVANCE DIRECTIVE DISCUSSION ADVANCE DIRECTIVE DISCUSSION [facility] Start: 10-14-2021 DEPRESSION ASSESSMENT DEPRESSION ASS ESSMENT [facility] Start: 11-09-2020 ANNUAL PCP TEAM PASTRY COOK APPRENTICE GAURI DISEASE VISIT ANNUAL PCP TEAM CHRONIC DISEASE VISIT [facility] Start: 11-06-2020 Adult depression scr eening assessment DEPRESSION SCREENING [facility] Start: 2020 BONE DENSITY BONE DENSITY [facility] Start: 2020 PNEUMOVAX AGE 65 AND OVER WITH 5YR LOOKBACK (#1) PNEUMOVAX AGE 65 AND OVER WITH 5YR LOOKBACK (#1) [facility] Start: 2020 Screening for osteoporosis Bone Dens ity Screening [facility] Start: 07-14-2020 Medicare Annual Well ness Visit Medicare Annual Wellness Visit [facility] Start: 05-22-2017 Mammography MAMMOGRAM [facility] Start: 05-22-2017 Screening for malign ant neoplasm of breast Mammogram Screening [facility] Start: 2015 RSV Vaccine (1 - 1-d ose 60+ series) RSV Vaccine (1 - 1-dose 60+ series) [facility] Start: 2015 RSV Vaccine (1 - Ris k 60-74 years 1-dose series) RSV Vaccine (1 - Risk 60-74 years 1-dose series) [facility] Start: 2005 SHINGRIX VACCINE (1 of 2) MARTINEZ GRIX VACCINE (1 of 2) [facility] Start: 2000 COLOGUARD (FIT-DNA) COLOGUARD (FIT-D NA) [facility] Start: 2000 Colonoscopy COLONOSCOPY [facility] Start: 2000 COLORECTAL CANCER SCREENING COLORECTAL CANCER SCREENING [facility] Start: [address] COLONOGRAPHY [facility] Start: 2000 FECAL OCCULT BLOOD FECAL OCCULT BLOO D [facility] Start: 2000 Screening for malign ant neoplasm of colon [facility] Start: 2000 SIGMOIDOSCOPY SIGMOIDOSCOPY [facility] Start: 1974 Pneumococcal Vaccine : 50+ (1 of 2 - PCV) Pneumococcal Vaccine: 50+ (1 of 2 - PCV) [facility] Start: 1974 Urine microalbumin profile [facility] Start: 1973 Annual PCP Team Platemaker gauri Disease Visit Annual PCP Team Chronic Disease Visit [facility] Start: 1973 Anxiety Screening Anxiety Screening [facility] Start: 1973 BP CONTROLLED (<130/80) BP CONTROLLE D (<130/80) [facility] Start: 1973 Depression Screening Depression Scre ening [facility] Start: 1961 Pneumococcal Vaccine : 65+ (1 of 2 - PCV) Pneumococcal Vaccine: 65+ (1 of 2 - PCV) [facility] Start: 1961 PNEUMOCOCCAL: 65+ (1 - PCV) PNEUMOCOCCAL: 65+ (1 - PCV) [facility] Start: 1960 COVID-19 VACCINE (#1) COVID-19 VACCI NE (#1) [facility] Start: 1960 COVID-19 VACCINE (1) COVID-19 VACCIN E (1) [facility] Start: 01-23-1956 COVID-19 VACCINE (#1) COVID-19 VACCI NE (#1) [facility] End: 03-18-2026 Basic metabolic 2000 panel - Serum or Plasma BASIC METABOLIC PANEL Lab Routine Primary hypertension Coronary artery disease involving [place] coronary artery of [place] heart without angina pectoris PAD (peripheral artery disease) Every 6 months for 4 Occurrences starting 03/18/2025 until 03/18/2026 [facility] Work Phone: Comment on above: Every 6 months for 4 Occurrences starting 03/18/2025 until 03/18/2026 End: 01-16-2023 ECG COMPLETE ECG COMPLETE ECG Routine Coronary artery disease involving [place] coronary artery of [place] heart without angina pectoris Encounter for monitoring sotalol therapy 1 Occurrences starting 01/16/2022 until 01/16/2023 [facility] Work Phone: Comment on above: 1 Occurrences starti ng 01/16/2022 until 01/16/2023 End: 2023 ECG COMPLETE ECG COMPLETE ECG Routine Coronary artery disease involving [place] coronary artery of [place] heart without angina pectoris 1 Occurrences starting 2022 until 2023 [facility] Work Phone: Comment on above: 1 Occurrences starti ng 2022 until 2023 ECG COMPLETE ECG COMPLETE ECG Routine Coronary artery disease involving [place] coronary artery of [place] heart without angina pectoris Ordered: 04/30/2024 [facility] Work Phone: Comment on above: Ordered: 04/30/2024 End: 2023 Echocardiography ECHO Cardiology Routine Coronary artery disease involving [place] coronary artery of [place] heart without angina pectoris History of HI (myocardial infarction) December 2008 1 Occurrences starting 2022 until 2023 [facility] Work Phone: Comment on above: 1 Occurrences starti ng 2022 until 2023 End: 04-30-2025 Echocardiography ECHO Cardiology Routine History of HI (myocardial infarction) December 2008 s/p PCI with JIM to the LAD 12/2008 1 Occurrences starting 04/30/2024 until 04/30/2025 [facility] Comment on above: 1 Occurrences starti ng 04/30/2024 until 04/30/2025 End: 03-18-2026 Magnesium [Mass/volume] in Serum or Plasma MAGNESIUM Lab Routine Primary hypertension Coronary artery disease involving [place] coronary artery of [place] heart without angina pectoris PAD (peripheral artery disease) Every 6 months for 4 Occurrences starting 03/18/2025 until 03/18/2026 [facility] Comment on above: Every 6 months for 4 Occurrences starting 03/18/2025 until 03/18/2026 End: 05-11-2023 Screening mammography bi 2-view breast inc cad KINJAL SCREENING Radiology Routine Encounter for screening mammogram for breast cancer 1 Occurrences starting 04/11/2022 until 05/11/2023 [facility] Work Phone: Comment on above: 1 Occurrences starti ng 04/11/2022 until 05/11/2023 [facility] Payers Date Payer Category Payer Private Health Insurance [facility] [place] [address] [id number] 2024 Unknown [facility] [place]PPLE[place] [id number] 2024-Present [id number] [address] [place] [address] Indemnity [id number] 2024 Medicare [id number] 2021 Medicaid [facility] MEDICAID [id number] 2021-Present [phone] [address] [place] [address] Medicaid [id number] 2021 Medicare [id number] 2020 Medicare [id number] 2020 Medicare [id number] Social History Date Type Detail Facility Start: 01-06-2015 End: 11-10-2024 Tobacco smoking status PRIS Smokes tobacco daily [facility] History of tobacco use Cigarette Smoker [facility] Start: 01-16-2022 End: 11-10-2024 Alcohol intake Current non-drinker of alcohol (finding) [facility] Start: 11-07-2019 End: 11-09-2019 History SDOH Alcohol Frequency 1 [facility] Start: 11-07-2019 End: 11-09-2019 History SDOH Alcohol Std Drinks 98 [facility] Start: 11-07-2019 History SDOH Social Connections Phone 5 [facility] Start: 11-07-2019 History SDOH Social Connections Get Together 2 [facility] Start: 11-07-2019 History SDOH Social Connections Living 8 [facility] Start: 11-06-2019 Education 14 [facility] Start: 1955 Sex Assigned At Not on file [facility] Start: 01-06-2022 End: 2022 Exposure to SARS-CoV-2 (event) Not sure [facility] Start: 01-06-2015 End: 10-31-2023 Cigarettes smoked current (pack per day) - Reported 0.5 [facility] Start: 01-06-2015 End: 11-10-2024 Tobacco use and exposure Smokeless tobacco non-user [facility] Start: 2022 End: 10-31-2023 Tobacco use panel [facility] National Score (1-10 0), lower number is lower risk 59 [facility] Work Phone: Do you belong to any clubs or organizations such as baptism groups, unions, fraternal or athletic groups, or school groups? No [facility] Are you now , , , , never or living with a partner? Living with partner [facility] How often to you hav e a drink containing alcohol? Never [facility] Work Phone: Do you feel stress - tense, restless, nervous, or anxious, or unable to sleep at night because your mind is troubled all the time - these days [OSQ] Not at all [facility] (I/We) worried wheenriqueta er (my/our) food would run out before (I/we) got money to buy more. Never true [facility] Functional Status Date Assessment Result Facility 10-15-2016 Are you deaf, or do you have serious difficulty hearing No 10/15/2016 2:32 PM Aida Gallardo, [employer]JIMMY No [facility] Work Phone: 10-15-2016 Are you blind, or do you have serious difficulty seeing, even when wearing glasses No 10/15/2016 2:32 PM Aida Gallardo, [employer]JIMMY No [facility] 10-15-2016 Do you have serious difficulty walking or climbing stairs No 10/15/2016 2:32 PM Aida Gallardo, [employer]JIMMY No [facility] 10-15-2016 Do you have difficul ty dressing or bathing No 10/15/2016 2:32 PM Aida Gallardo, [employer]JIMMY No [facility] 10-15-2016 Because of a physica l, mental, or emotional condition, do you have difficulty doing errands alone such as visiting a physician's office or shopping No 10/15/2016 2:32 PM Aida Gallardo, [employer].CLEAN UP WORKER No [facility] Mental Status Date Assessment Result Facility 10-15-2016 Because of a physica l, mental, or emotional condition, do you have serious difficulty concentrating, remembering, or making decisions No 10/15/2016 2:32 PM Aida Gallardo, [employer].CLEAN UP WORKER No [facility] Clinical Notes 12-12-2008 to 04-12-2025 Telephone Encounter [...] questions regarding this prescription request, call at: [phone] (home) [phone] (cell) RX INSTRUCTIONS: Pharmacy initiated this request. No need to notify patient. Date of last office visit: 04/30/24 Date of last [facility] Health visit: Visit date not found Date [...] Date Value 10/31/2023 108 Batsheva Israel RN [facility] 04-12-2025 Miscellaneous Notes Patient has been identified by name and date of : Yes Pharmacy electronically sent a request for the following prescription(s) If there are any questions regarding this prescription request, call at: [phone] (home) [phone] (cell) RX INSTRUCTIONS: Pharmacy initiated this request. No need to notify patient. Date of last office visit: 04/30/24 Date of last [facility] Health visit: Visit date not found Date [...] Batsheva Israel RN documented in this encounter [facility] 04-05-2025 Telephone encounter Note Patient has been identified by name and date of : Yes Pharmacy electronically sent a request for the following prescription(s) If there are any questions regarding this prescription request, call at: [phone] (home) [phone] (cell) RX INSTRUCTIONS: Pharmacy initiated this request. No need to notify patient. Date of last office visit: 04/30/24 Date of last [facility] Health visit: Visit date not found Date [...] Date Value 10/31/2023 108 Loreta Blevins RN [facility] 04-05-2025 Miscellaneous Notes Patient has been identified by name and date of : Yes Pharmacy electronically sent a request for the following prescription(s) If there are any questions regarding this prescription request, call at: [phone] (home) [phone] (cell) RX INSTRUCTIONS: Pharmacy initiated this request. No need to notify patient. Date of last office visit: 04/30/24 Date of last [facility] Health visit: Visit date not found Date [...] Loreta Blevins RN documented in this encounter [facility] 03-18-2025 Telephone encounter Note Patient has been identified by name and date of : Yes Pharmacy electronically sent a request for the following prescription(s) If there are any questions regarding this prescription request, call at: [phone] (home) [phone] (cell) RX INSTRUCTIONS: Pharmacy initiated this request. No need to notify patient. Date of last office visit: 04/30/24 Date of last [facility] Health visit: Visit date not found Date [...] Date Value 10/31/2023 108 Batsheva Israel RN [facility] 03-18-2025 Miscellaneous Notes Patient has been identified by name and date of : Yes Pharmacy electronically sent a request for the following prescription(s) If there are any questions regarding this prescription request, call at: [phone] (home) [phone] (cell) RX INSTRUCTIONS: Pharmacy initiated this request. No need to notify patient. Date of last office visit: 04/30/24 Date of last [facility] Health visit: Visit date not found Date [...] Batsheva Israel RN documented in this encounter [facility] 12-14-2024 Telephone encounter Note The following approved medication requests have been transmitted electronically. Requested Prescriptions Signed Prescriptions Disp Refills rivaroxaban (XARELTO) 20 mg tablet 90 tablet 3 Sig: Take 1 tablet by mouth once daily. Authorizing Provider: JHONNY MEDEL Ordering User: KIRK ROMERO APRN.CNP [facility] 12-14-2024 Miscellaneous Notes The following approved medication requests have been transmitted electronically. Requested Prescriptions Signed Prescriptions Disp Refills rivaroxaban (XARELTO) 20 mg tablet 90 tablet 3 Sig: Take 1 tablet by mouth once daily. Authorizing Provider: JHONNY MEDEL Ordering User: KIRK ROMERO APRN.CLEAN UP WORKER Patient has been identified by name and date of : Yes Patient electronically sent a request for the following prescription(s) If there are any questions regarding this prescription request, call at: [phone] (home) [phone] (cell) RX INSTRUCTIONS: Patient aware RX will be sent to pharmacy. No need to notify patient. Date of last office visit: 04/30/24 Date of last [facility] Health visit: Visit date not found Date [...] Loreta Blevins RN documented in this encounter [facility] 12-14-2024 Telephone encounter Note Patient has been identified by name and date of : Yes Patient electronically sent a request for the following prescription(s) If there are any questions regarding this prescription request, call at: [phone] (home) [phone] (cell) RX INSTRUCTIONS: Patient aware RX will be sent to pharmacy. No need to notify patient. Date of last office visit: 04/30/24 Date of last [facility] Health visit: Visit date not found Date [...] Date Value 10/31/2023 108 Loreta Blevins RN [facility] 11-10-2024 Note HNO ID: [id number] Author: MARIANA MELGAR PA-C Service: ? Author Type: Physician Doctorate Of Chiropractic Type: Progress Notes Filed: 11/10/2024 12:09 Note Text: This note was created using [employer] Dailiesriter. Subjective Maria Teresa Quiroga is a 69 year old female. Patient is a 69-year-old female who is brought by caregiver for evaluation of worsening cough and shortness of breath that she has been experiencing for the past 2 weeks. Patient reports no congestion, sinus pressure, ear pain or sore throat. Patient has no history of asthma or COPD but does have an approximate 00-nkmn-ghpr history of tobacco use and continues to [...] ICD9: 305.1, ICD10: Z72.0 Mariana Melgar PA-C [facility] 11-10-2024 History of Present illness Narrative This [...] or COPD but does have an approximate 57-xfzj-bztr history of tobacco use and continues to [...] Mariana Melgar PA-C documented in this encounter [facility] 04-30-2024 Instructions Jhonny Medel MD - 04/30/2024 [...] an echocardiogram (ultrasound of the heart) in [place] [phone] See me again in 6 months (Work on quitting smoking) documented in this encounter [facility] 04-30-2024 Note HNO ID: [id number] Author: JHONNY MEDEL MD Service: ? Author Type: Physician Type: Progress Notes Filed: 04/30/2024 16:39 Note Text: [facility] Department of Cardiovascular Medicine [...] DO echo 12/2014 CONCLUSIONS: - Exam indication: CAD/HI/AFib - The left ventricle is normal in [...] Date Value 02 (more content not included)... [facility] 04-30-2024 History of Present illness Narrative Images from the original note were not included. [facility] Department of Cardiovascular Medicine [...] DO echo 12/2014 CONCLUSIONS: - Exam indication: CAD/HI/AFib - The left ventricle is normal in [...] Diagnosis ICD-10-CM 1. Coronary artery disease involving [place] coronary artery of [place] heart without angina pectoris I25.10 2. History of HI (myocardial infarction) December 2008 I25.2 3. s/p [...] an echocardiogram (ultrasound of the heart) in [place] [phone] See me again in 6 months (Work [...] Jhonny Medel MD CC: Carlos Quiroz MD [address] [place] [id number] documented in this encounter [facility] 04-17-2024 Telephone encounter Note Patient has been identified by name and date of : Yes Patient phoned to request the following prescription(s) If there are any questions regarding this prescription request, call at home at: [phone] (home) [phone] (cell) RX INSTRUCTIONS: Patient aware RX will [...] Date Value 10/31/2023 108 Zahra George RN [facility] 04-17-2024 Miscellaneous Notes Patient has been identified by name and date of : Yes Patient phoned to request the following prescription(s) If there are any questions regarding this prescription request, call at home at: [phone] (home) [phone] (cell) RX INSTRUCTIONS: Patient aware RX will be sent to pharmacy. No need to notify patient. Date of last office visit: 10/31/23 Date of last [facility] Health visit: Visit date not found Date [...] Zahra George RN documented in this encounter [facility] 03-30-2024 Telephone encounter Note The following approved medication requests have been transmitted electronically. Requested Prescriptions Signed Prescriptions Disp Refills amLODIPine (NORVASC) 5 mg tablet 90 tablet 3 Sig: take 1 tablet by mouth every day Authorizing Provider: GEOFFREY HARLEY Ordering User: KIRK ROMERO APRN.CNP [facility] 03-30-2024 Miscellaneous Notes The following approved medication [...] this prescription request, call at home at: [phone] (home) [phone] (cell) RX INSTRUCTIONS: Patient aware RX will [...] Zahra George RN documented in this encounter [facility] 03-30-2024 Telephone encounter Note Patient has been identified by name and date of : Yes Patient phoned to request the following prescription(s) If there are any questions regarding this prescription request, call at home at: [phone] (home) [phone] (cell) RX INSTRUCTIONS: Patient aware RX will be sent to pharmacy. No need to notify patient. Date of last office visit: 10/31/23 Date of last [facility] Health visit: Visit date not found Date [...] Date Value 10/31/2023 108 Zahra George RN [facility] 06-19-2023 Miscellaneous Notes Patient has been identified by name and date of : Yes Pharmacy electronically sent a request for the following prescription(s) If there are any questions regarding this prescription request, call at: [phone] (home) [phone] (cell) RX INSTRUCTIONS: Pharmacy initiated this request. No need to notify patient. Date of last office visit: 07/24/22 Date of last [facility] Health visit: Visit date not found Date of future office visit: Not Scheduled, needs appointment for future refills. Beatrobo message sent to pt. Requested Prescriptions Pending [...] Batsheva Israel RN documented in this encounter [facility] 05-31-2023 Miscellaneous Notes The following approved medication [...] questions regarding this prescription request, call at: [phone] (home) [phone] (cell) RX INSTRUCTIONS: Patient aware RX will be sent to pharmacy. No need to notify patient. Date of last office visit: 2022 Date of last [facility] Health visit: Visit date not found Date [...] Lucie Lal RN documented in this encounter [facility] 05-02-2023 Miscellaneous Notes Patient has been identified by name and date of : Yes Patient phoned to request the following prescription(s) If there are any questions regarding this prescription request, call at home at: [phone] (home) [phone] (cell) RX INSTRUCTIONS: Patient aware RX will be sent to pharmacy. No need to notify patient. Date of last office visit: 07/24/22 Date of last [facility] Health visit: Visit date not found Date [...] Zahra George RN documented in this encounter [facility] 04-08-2023 Miscellaneous Notes Patient has been identified by name and date of : Yes Pharmacy electronically sent a request for the following prescription(s) If there are any questions regarding this prescription request, call at home at: [phone] (home) [phone] (cell) RX INSTRUCTIONS: Pharmacy initiated this request. No need to notify patient. Date of last office visit: 07/24/22 Date of last [facility] Health visit: Visit date not found Date [...] Jacqueline Jacobson RN documented in this encounter [facility] 2022 Instructions Jhonny Medel MD - 2022 3:51 PM EDT You are doing well - you have NO symptoms of angina, heart failure and no recent afib I would still recommend Repatha but you are reluctant to take this; you would also be a good candidate for inclisiran Please consider quitting smoking again Schedule an echocardiogram (ultrasound of the heart) in [place] [phone] See me again in about 6 months and have fasting blood work before the visit documented in this encounter [facility] 2022 History of Present illness Narrative Images from the original note were not included. [facility] Department of Cardiovascular Medicine [...] evolocumab 140 mg/mL subcutaneous pen injector ([employer]) Inject 140 mg subcutaneously every 2 weeks. [...] DO echo 12/2014 CONCLUSIONS: - Exam indication: CAD/HI/AFib - The left ventricle is normal in [...] Diagnosis ICD-10-CM 1. Coronary artery disease involving [place] coronary artery of [place] heart without angina pectoris I25.10 2. History of HI (myocardial infarction) December 2008 I25.2 3. s/p PCI with JIM to the LAD 12/2008 Z95.5 4. PAD (peripheral artery disease) ([facility]) I73.9 5. H/O aorto-femoral bypass for occluded aorta 2009 Z95.828 6. Paroxysmal atrial fibrillation ([facility]) I48.0 7. Encounter for monitoring sotalol therapy [...] an echocardiogram (ultrasound of the heart) in [place] [phone] See me again in about 6 months [...] Jhonny Medel MD CC: Carli Galvan [address] [place] [address] documented in this encounter [facility] 06-11-2022 Miscellaneous Notes Patient has been identified by name and date of : Yes Pharmacy electronically sent a request for the following prescription(s) If there are any questions regarding this prescription request, call at: [phone] (home) [phone] (cell) RX INSTRUCTIONS: Pharmacy initiated this request. No need to notify patient. Date of last office visit: 01/16/22 Date of last [facility] Health visit: Visit date not found Date [...] Batsheva Israel RN documented in this encounter [facility] 05-14-2022 Miscellaneous Notes Patient has been identified by name and date of : Yes Patient phoned to request the following prescription(s) If there are any questions regarding this prescription request, call at home at: [phone] (home) [phone] (cell) RX INSTRUCTIONS: Patient aware RX will be sent to pharmacy. No need to notify patient. Date of last office visit: 01/16/22 Date of last [facility] Health visit: Visit date not found Date [...] Zahra George RN documented in this encounter [facility] 05-02-2022 Miscellaneous Notes Patient has been identified by name and date of : Yes Patient phoned to request the following prescription(s) If there are any questions regarding this prescription request, call at home at: [phone] (home) [phone] (cell) RX INSTRUCTIONS: Patient aware RX will be sent to pharmacy. No need to notify patient. Date of last office visit: 01/16/22 Date of last [facility] Health visit: Visit date not found Date [...] Zahra George RN documented in this encounter [facility] 04-17-2022 Miscellaneous Notes Patient has been identified by name and date of : Yes Patient phoned to request the following prescription(s) If there are any questions regarding this prescription request, call at home at: [phone] (home) [phone] (cell) RX INSTRUCTIONS: Patient aware RX will [...] Zahra George RN documented in this encounter [facility] 03-16-2022 Miscellaneous Notes Refill already routed to Dr. Medel. Zahra George RN documented in this encounter [facility] 03-14-2022 Miscellaneous Notes Patient has been identified by name and date of : Yes Pharmacy electronically sent a request for the following prescription(s) If there are any questions regarding this prescription request, call at home at: [phone] (home) [phone] (cell) RX INSTRUCTIONS: Patient aware RX will be sent to pharmacy. No need to notify patient. Date of last office visit: 01/16/22 Date of last [facility] Health visit: Visit date not found Date [...] Jacqueline Jacobson RN documented in this encounter [facility] 01-16-2022 Instructions Jhonny Medel MD - 01/16/2022 [...] about 6 months documented in this encounter [facility] 01-16-2022 History of Present illness Narrative Images from the original note were not included. [facility] Department of Cardiovascular Medicine [...] Liz Gonzalez Interpreting physician: Liz Gonzalez DO [facility] echo 12/2014 CONCLUSIONS: - Exam indication: CAD/HI/AFib - The left ventricle is normal in [...] Diagnosis ICD-10-CM 1. Coronary artery disease involving [place] coronary artery of [place] heart without angina pectoris I25.10 2. History of HI (myocardial infarction) December 2008 I25.2 3. s/p [...] concerns. Jhonny Medel MD CC: Carli Galvan [address] [place] [address] documented in this encounter [facility] 12-12-2008 Evaluation note Diagnosis Coronary artery disease involving [place] coronary artery of [place] heart without angina pectoris- Primary History of HI (myocardial infarction) December 2008 Old myocardial infarction [...] kidney disease (HCC) documented in this encounter [facility]03-01-2009 Evaluation note* Diagnosis Coronary artery disease involving [place] coronary artery of [place] heart without angina pectoris- Primary History of HI (myocardial infarction) December 2008 Old myocardial infarction [...] left side Sciatica documented in this encounter [facility]03-01-2009 Evaluation note* Diagnosis Coronary artery disease involving [place] coronary artery of [place] heart without angina pectoris- Primary History of HI (myocardial infarction) December 2008 Old myocardial infarction [...] kidney disease (HCC) [facility] Diagnosis Paroxysmal atrial fibrillation (HCC) Atrial fibrillation [facility] Diagnosis Encounter for screening mammogram for breast cancer [facility] Diagnosis Primary hypertension- Primary Unspecified essential hypertension Paroxysmal atrial fibrillation (HCC) Atrial fibrillation Coronary artery disease involving [place] coronary artery of [place] heart without angina pectoris PAD (peripheral artery disease) (HCC) Peripheral vascular disease, unspecified [facility] Diagnosis Paroxysmal atrial fibrillation (HCC) Atrial fibrillation [facility] Diagnosis Primary hypertension- Primary Unspecified essential hypertension [facility] Diagnosis Coronary artery disease involving [place] coronary artery of [place] heart without angina pectoris PAD (peripheral artery disease) ([facility] [facility] Peripheral vascular disease, unspecified [facility] G[facility] flare- Primary Acute [...] Tobacco use disorder [facility]- Primary Acute gouty [...] acute or chronic [facility] Diagnosis Gout flare- Primary Acute [...] Primary Atrial fibrillation [facility] Diagnosis Gout flare- Primary Acute [...] Unspecified essential hypertension Coronary artery disease involving [place] coronary artery of [place] heart without angina pectoris PAD (peripheral artery disease) Peripheral vascular disease, unspecified [facility] Gout flare- Primary Acute [...] serum enzyme levels Coronary artery disease involving [place] coronary artery of [place] heart without angina pectoris PAD (peripheral artery disease) Peripheral vascular disease, unspecified [facility] Gout flare- Primary Acute gouty [...] serum enzyme levels Coronary artery disease involving [place] coronary artery of [place] heart without angina pectoris documented in this encounter [facility] for referral (narrative)* Outpatient Procedure (Routine) - Pending Review Specialty Diagnoses / Procedures Referred By Baylee saini Referred To Contact [facility] [place] Diagnoses Coronary artery disease involving [place] coronary artery of [place] heart without angina pectoris Encounter for monitoring sotalol therapy Procedures ECG COMPLETE ECG ROUTINE ECG W/LEAST 12 LDS W/I&[place] [address] [place] [address] [address] Referral ID Status Reason Start Date Expiration Date Visits Requested Visits Authorized [id number] Pending Review Auto-Generat ed Referral 01/16/2022 01/16/2023 1 1 [facility] for referral (narrative)* Diagnostic Procedure Only (Routine) - Pending Review Specialty Diagnoses / Procedures Referred By Baylee saini Referred To Contact [facility] Diagnoses Encounter for screening mammogram for breast cancer Procedures KINJAL SCREENING SCREENING MAMMOGRAPHY BI 2-VIEW BREAST INC Carli Horn, [employer] UP WORKER [address] [place] [address] [facility] [address] [place] [address] Referral ID Status Reason Start Date Expiration Date Visits Requested Visits Authorized [id number] Pending Review Auto-Generat ed Referral 04/11/2022 05/11/2023 1 1 [facility] for referral (narrative)* Outpatient Procedure (Routine) - Pending Review Specialty Diagnoses / Procedures Referred By Contac t Referred To Contact [facility] [place] Diagnoses Coronary artery disease involving [place] coronary artery of [place] heart without angina pectoris History of HI (myocardial infarction) Procedures ECHO ECHO TTHRC R-T 2D W/WOM-MODE COMPL SPEC&[place] [address] [place] [address] [address] Referral ID Status Reason Start Date Expiration Date Visits Requested Visits Authorized [id number] Pending Review Auto-Generat ed Referral 2 2023 1 1 * Outpatient Procedure (Routine) - Pending Review Specialty Diagnoses / Procedures Referred By Contac t Referred To [facility] Diagnoses Coronary artery disease involving [place] coronary artery of [place] heart without angina pectoris Procedures ECG COMPLETE ECG ROUTINE ECG W/LEAST 12 LDS W/I&[place] [address] [place] [address] [place] [id number] Referral ID Status Reason Start Date Expiration Date Visits Requested Visits Authorized [id number] Pending Review Auto-Generat ed Referral 2 2023 1 1 [facility] for referral (narrative)* Outpatient Procedure (Routine) - New Request Specialty Diagnoses / Procedures Referred By Contac t Referred To [facility] [place] Diagnoses History of HI (myocardial infarction) Presence of stent in LAD coronary artery Procedures ECHO ECHO TTHRC R-T 2D W/WOM-MODE COMPL SPEC&[place] [address] [place] [address] [address] Referral ID Status Reason Start Date Expiration Date Visits Requested Visits Authorized [id number] New Request Auto-Generat ed Referral 04/30/2024 04/30/2025 1 1 * Outpatient Procedure (Routine) - New Request Specialty Diagnoses / Procedures Referred By Contac t Referred [facility] Diagnoses Coronary artery disease involving [place] coronary artery of [place] heart without angina pectoris Procedures ECG COMPLETE ECG ROUTINE ECG W/LEAST 12 LDS W/I&[place] [address] [place] [address] [facility] [place] [id number] [place] [address] Referral ID Status Reason Start Date Expiration Date Visits Requested Visits Authorized [id number] New Request Auto-Generat ed Referral 04/30/2024 04/30/2025 1 1 [facility] Advance Directives Documents on File Type Date Recorded 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 Advance Directive(s) 08/29/2018 1:08 PM Documents on File Type Date Recorded 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 Advance Directive(s) 08/29/2018 1:08 PM [...] or prosecute any alcohol or drug abuse patient.[facility] the event this information is protected by the Federal Confidentiality of Alcohol and Drug Abuse Patient Records regulations: The Federal rules restrict any use of the information to criminally investigate or prosecute any alcohol or drug abuse patient.[facility] the event this information is protected by the Federal Confidentiality of Alcohol and Drug Abuse Patient Records regulations: The Federal rules restrict any use of the information to criminally investigate or prosecute any alcohol or drug abuse patient.[facility] the event this information is protected by the Federal Confidentiality of Alcohol and Drug Abuse Patient Records regulations: The Federal rules restrict any use of the information to criminally investigate or prosecute any alcohol or drug abuse patient.[facility] the event this information is protected by the Federal Confidentiality of Alcohol and Drug Abuse Patient Records regulations: The Federal rules restrict any use of the information to criminally investigate or prosecute any alcohol or drug abuse patient.[facility] the event this information is protected by the Federal Confidentiality of Alcohol and Drug Abuse Patient Records regulations: The Federal rules restrict any use of the information to criminally investigate or prosecute any alcohol or drug abuse patient.[facility] the event this information is protected by the Federal Confidentiality of Alcohol and Drug Abuse Patient Records regulations: The Federal rules restrict any use of the information to criminally investigate or prosecute any alcohol or drug abuse patient.[facility] the event this information is protected by the Federal Confidentiality of Alcohol and Drug Abuse Patient Records regulations: The Federal rules restrict any use of the information to criminally investigate or prosecute any alcohol or drug abuse patient.[facility] the event this information is protected by the Federal Confidentiality of Alcohol and Drug Abuse Patient Records regulations: The Federal rules restrict any use of the information to criminally investigate or prosecute any alcohol or drug abuse patient.[facility] the event this information is protected by the Federal Confidentiality of Alcohol and Drug Abuse Patient Records regulations: The Federal rules restrict any use of the information to criminally investigate or prosecute any alcohol or drug abuse patient.[facility] the event this information is protected by the Federal Confidentiality of Alcohol and Drug Abuse Patient Records regulations: The Federal rules restrict any use of the information to criminally investigate or prosecute any alcohol or drug abuse patient.[facility] the event this information is protected by the Federal Confidentiality of Alcohol and Drug Abuse Patient Records regulations: The Federal rules restrict any use of the information to criminally investigate or prosecute any alcohol or drug abuse patient.[facility] the event this information is protected by the Federal Confidentiality of Alcohol and Drug Abuse Patient Records regulations: The Federal rules restrict any use of the information to criminally investigate or prosecute any alcohol or drug abuse patient.[facility] the event this information is protected by the Federal Confidentiality of Alcohol and Drug Abuse Patient Records regulations: The Federal rules restrict any use of the information to criminally investigate or prosecute any alcohol or drug abuse patient.[facility] the event this information is protected by the Federal Confidentiality of Alcohol and Drug Abuse Patient Records regulations: The Federal rules restrict any use of the information to criminally investigate or prosecute any alcohol or drug abuse patient.[facility] Hospital[facility] the event this information is protected by the Federal Confidentiality of Alcohol and Drug Abuse Patient Records regulations: The Federal rules restrict any use of the information to criminally investigate or prosecute any alcohol or drug abuse patient.[facility] the event this information is protected by the Federal Confidentiality of Alcohol and Drug Abuse Patient Records regulations: The Federal rules restrict any use of the information to criminally investigate or prosecute any alcohol or drug abuse patient.[facility] Hospital[facility] the event this information is protected by the Federal Confidentiality of Alcohol and Drug Abuse Patient Records regulations: The Federal rules restrict any use of the information to criminally investigate or prosecute any alcohol or drug abuse patient.[facility] Hospital[facility] the event this information is protected by the Federal Confidentiality of Alcohol and Drug Abuse Patient Records regulations: The Federal rules restrict any use of the information to criminally investigate or prosecute any alcohol or drug abuse patient.[facility] Hospital[facility] the event this information is protected by the Federal Confidentiality of Alcohol and Drug Abuse Patient Records regulations: The Federal rules restrict any use of the information to criminally investigate or prosecute any alcohol or drug abuse patient.[facility] Hospital[facility] the event this information is protected by the Federal Confidentiality of Alcohol and Drug Abuse Patient Records regulations: The Federal rules restrict any use of the information to criminally investigate or prosecute any alcohol or drug abuse patient.[facility] the event this information is protected by the Federal Confidentiality of Alcohol and Drug Abuse Patient Records regulations: The Federal rules restrict any use of the information to criminally investigate or prosecute any alcohol or drug abuse patient.[facility] Hospital[facility] the event this information is protected by the Federal Confidentiality of Alcohol and Drug Abuse Patient Records regulations: The Federal rules restrict any use of the information to criminally investigate or prosecute any alcohol or drug abuse patient.[facility] Hospital[facility] the event this information is protected by the Federal Confidentiality of Alcohol and Drug Abuse Patient Records regulations: The Federal rules restrict any use of the information to criminally investigate or prosecute any alcohol or drug abuse patient.[facility] Reason for Visit (unrecogniz ed section and content) Reason Comments Follow Up Reason Comments Refill Request Reason Comments CARD Follow Up 6 Month Reason Onset Date Comments Refill Request Refill Request 05/31/2023 Reason Comments Cardiology Follow Up - Generic Reason Comments Cough sob, nasal congestio n x 10 days Reason Onset Date Comments Refill Request 12/13/2024 Care Teams (unrecognized sec tion and content) Retail Stocker Relationship Specialty Start Date End Date Carli Galvan, [employer] UP WORKER [address] [place] [address] PCP - General Family Practice 11/09/19 Retail Stocker Relationship Specialty Start Date End Date Carli Galvan, [employer] UP WORKER [address] [place] [address] PCP - General Family Practice 11/09/19 Retail Stocker Relationship Specialty Start Date End Date Carli Galvan, [employer] UP WORKER [address] [place] [address] PCP - General Family Practice 11/09/19 Retail Stocker Relationship Specialty Start Date End Date Carli Galvan, [employer].CLE[employer] UP WORKER [address] [place] [address] PCP - General Family Practice 11/09/19 Retail Stocker Relationship Specialty Start Date End Date Carli Galvan, [employer]CLE[employer] UP WORKER [address] [place] [address] PCP - General Family Practice 11/09/19 Retail Stocker Relationship Specialty Start Date End Date Carli Galvan, [employer].CLE[employer] UP WORKER [address] [place] [address] PCP - General Family Practice 11/09/19 Retail Stocker Relationship Specialty Start Date End Date Carli Galvan, [employer].CLE[employer] UP WORKER [address] [place] [address] PCP - General Family Practice 11/09/19 Retail Stocker Relationship Specialty Start Date End Date [facility]3]JannetteCarli, [employer].CLEAN UP WORKER [address] [facility] [place] [address] PCP - General Family Medicine 11/09/19 Retail Stocker Relationship Specialty Start Date End Date [facility]3]JannetteCarli, [employer].CLE[employer] UP WORKER [address] [facility] [place] [address] PCP - General Family Medicine 11/09/19 Retail Stocker Relationship Specialty Start Date End Date [facility]3]JannetteCarli, [employer].CLE[employer] UP WORKER [address] [facility] [place] [address] PCP - General Family Medicine 11/09/19 Retail Stocker Relationship Specialty Start Date End Date [facility], [employer].CLEAN UP WORKER [address] [facility] [place] [address] PCP - General Family Medicine 11/09/19 Retail Stocker Relationship Specialty Start Date End Date [facility]3][place], [employer].CLEAN UP WORKER [address] [facility] [place] [address] PCP - General Family Medicine 11/09/19 Retail Stocker Relationship Specialty Start Date End Date [facility], [employer].CLE[employer] UP WORKER [address] [facility] [place] [address] PCP - General Family Medicine 11/09/19 Retail Stocker Relationship Specialty Start Date End Date [facility]3]JannetteCarli, [employer].CLEAN UP WORKER [address] [facility] [place] [address] PCP - General Family Medicine 11/09/19 Retail Stocker Relationship Specialty Start Date End Date [facility]3] Carli, [employer].CLEAN UP WORKER [address] [place] [address] PCP - General Family Medicine 11/09/19 Retail Stocker Relationship Specialty Start Date End Date Carlos Quiroz [address] [place] [address] PCP - General Family Medicine 04/22/24 Retail Stocker Relationship Specialty Start Date End Date Carlos Quiroz [address] [place] [address] PCP - General Family Medicine 04/22/24 Retail Stocker Relationship Specialty Start Date End Date Carlos Quiroz [address] [place] [address] PCP - General Family Medicine 04/22/24 Retail Stocker Relationship Specialty Start Date End Date Carlos Quiroz [address] [place] [address] PCP - General Family Medicine 04/22/24 Retail Stocker Relationship Specialty Start Date End Date Carlos Quiroz [address] [place] [address] PCP - General Family Medicine 04/22/24 Retail Stocker Relationship Specialty Start Date End Date Carlos Quiroz [address] [place] [address] PCP - General Family Medicine 04/22/24 Retail Stocker Relationship Specialty Start Date End Date Carlos Quiroz [address] [place] [address] PCP - General Family Medicine 04/22/24 Retail Stocker Relationship Specialty Start Date End Date Carlos Quiroz [address] [place] [place] [address] PCP - General Family Medicine 04/22/24 INFORMATION SOURCE (unrecogn ized section and content) DATE CREATED AUTHOR 11/11/2024 [facility] DATE CREATED AUTHOR AUTHOR'S ORGANIZ ATION 11/11/[address] [facility] FOR RECORDS PERTAINING TO PATIENTS WHO ARE [...] BE BASED ON THE PRIMARY CLINICAL RECORDS. [employer] provides no warranty or guarantee of the accuracy or completeness of information in this document.
[2025-08-28 22:03] LABS: Magnesium 2.2 mg/dL (1.5-2.2)
[2025-08-28 22:29] LABS: Troponin T High Sens 4 HR 18 ng/L (<=14)
--- NOTE | 2025-08-28 22:35 | ECHOD_ITS ---
Reason For Study Reason For Study: SYNCOPE Procedure This was a 2D Doppler, Color Flow transthoracic echocardiogram. Exam performed portable in patient room. Left Ventricle Normal LV size. Left ventricular systolic function is normal. The left ventricular ejection fraction is 65 %. No regional wall motion abnormalities noted. Right Ventricle Normal RV size. Normal systolic function. Atria Normal left atrium. Normal right atrium. Mitral Valve Normal mitral valve. Tricuspid Valve Normal tricuspid valve. Mild (1+) tricuspid valve insufficiency. Pulmonary artery systolic pressure is 28 mmHg. Aortic Valve Trisinus/trileaflet aortic valve. Great Vessels Normal aortic root. The pulmonary artery is normal size. Inferior vena cava collapse with respiration. Pericardium/Pleural No pericardial effusion. MMode/2D Measurements & Calculations LVIDd: 4.1 cm IVSd: 1.3 cm Ao root diam: 3.0 cm LVIDs: 2.9 cm LVPWd: 0.99 cm RVDd: 3.1 cm FS: 27.5 % LAV(MOD-bp): 32.0 ml LVAd ap4: 19.1 cm2 SV(MOD-sp4): 41.6 ml LAV(MOD-bp) Indexed: 18.9 ml/m2 LVLd ap4: 6.4 cm SI(MOD-sp4): 24.5 ml/m2 LAV(MOD-sp2): 29.5 ml EDV(MOD-sp4): 51.6 ml LAV(MOD-sp4): 32.4 ml EDV(sp4-el): 48.4 ml LVAs ap4: 6.2 cm2 LVLs ap4: 4.0 cm ESV(MOD-sp4): 10.0 ml ESV(sp4-el): 8.1 ml EF(MOD-sp4): 80.6 % EF(sp4-el): 83.2 % SV(sp4-el): 40.3 ml LA dimension(2D): 3.4 cm LA A4 area: 14.3 cm2 RA A4 area: 12.4 cm2 Time Measurements MV dec time: 0.21 sec Doppler Measurements & Calculations MV E max ulises: 75.8 cm/sec Lat Peak E' Ulises: 8.7 cm/sec Med Peak E' Ulises: 4.9 cm/sec MV A max ulises: 79.7 cm/sec E/E' lat: 8.7 E/E' med: 15.5 MV E/A: 0.95 MV V2 max: 90.9 cm/sec Ao V2 max: 131.9 cm/sec MV max P.3 mmHg MV dec slope: 354.2 cm/sec2 Ao max P.0 mmHg MV V2 mean: 50.8 cm/sec Ao V2 mean: 85.7 cm/sec MV mean P.3 mmHg Ao mean P.4 mmHg MV V2 VTI: 34.2 cm Ao V2 VTI: 35.2 cm AV (velocity ratio): 0.83 LV V1 max: 132.5 cm/sec PA V2 max: 96.6 cm/sec TR max ulises: 249.7 cm/sec LV V1 max P.0 mmHg PA V2 mean: 65.0 cm/sec TR max P.9 mmHg LV V1 mean P.9 mmHg LV V1 mean: 77.4 cm/sec LV V1 VTI: 29.1 cm ECHO/Echo Complete Interpretation Summary Normal LV size. Left ventricular systolic function is normal. The left ventricular ejection fraction is 65 %. Mild (1+) tricuspid valve insufficiency. Ordering Physician: Josselin Lundberg Referring Physician: DIOR PCP Performed By: Katelynn Alonzo RCS
[2025-08-28 22:40] LABS: Prothrombin Time (Protime)PT. 17.9 SECONDS (11.7-14.9)
[2025-08-28 22:41] LABS: Partial Thromboplast Time 34.6 Seconds (24.1-36.2)
[2025-08-28] MEDS: 0.9% Normal Saline (1000mL) 1,000 ML 100 ML IV (23:16)
[2025-08-28] MEDS: Sotalol Hydrochloride 80 MG Tablet 40 MG PO (23:16)
[2025-08-28 23:24] LABS: Ferritin 278 ng/mL (22-378)
[2025-08-29] VITALS (7 sets, daily range): BP systolic 97–138; BP diastolic 57–72; PULSE 47–64; RESP 14–18; TEMP 35.8–36.6; O2SAT 95–99; BMI 26.2
[2025-08-29 01:15] LABS: Iron 83 ug/dL (50-170); Iron Binding Capacity,Unsat 126 ug/dL (228-428)
[2025-08-29 01:17] LABS: Iron Binding Capacity,Total 209 ug/dL (250-450)
[2025-08-29 02:11] LABS: Creatinine, Urine (random) 41.10 mg/dL (28.00-217.00)
[2025-08-29 05:56] LABS: Hematocrit 24.6 % (37-47); Hemoglobin 7.6 g/dL (12.0-15.0); Immature Granulocytes Count 0.060 X10^3/uL (0.0-0.0); Mean Corp Hgb Conc 30.9 g/dL (32-36); Mean Corpuscular Volume 95.0 fL (81-99); Mean Platelet Vol. 11.6 fl (6.2-12.0); NRBC Flagged by Analyzer 0 % (0-5); Platelet Count 204 K/mm3 (150-450); RBC Distribution Width CV 18.3 % (11.6-14.6); RBC Distribution Width SD 63.2 fl (35.1-43.9); Red Blood Count 2.59 M/mm3 (4.2-5.4); White Blood Count 7.6 K/mm3 (4.4-11.0)
[2025-08-29 06:14] LABS: Prothrombin Time (Protime)PT. 14.4 SECONDS (11.7-14.9)
[2025-08-29 06:15] LABS: Partial Thromboplast Time 29.2 Seconds (24.1-36.2)
[2025-08-29 06:43] LABS: AST(SGOT) 205 U/L (<=31); Alanine Aminotransfer ALT/SGPT 136 U/L (<=34); Albumin, Serum 2.9 g/dL (3.4-4.8); Alkaline Phosphatase 3236 U/L (35-104); Anion Gap 11 (5-15); BUN 27 mg/dL (4-19); BUN/Creat Ratio 11.4 RATIO (10-20); Calcium,Total 8.5 mg/dL (7.6-11.0); Carbon Dioxide 15.0 mmol/L (21.0-32.0); Chloride 118 mmol/L (98-108); Estimated Creatinine Clearance 20.32 ml/min (50-250); Globulin 2.9 g/dL (2.2-4.2); Glucose 170 mg/dL (70-99); Potassium 3.5 mmol/L (3.3-5.1)
[2025-08-29] MEDS: Sotalol Hydrochloride 80 MG Tablet 40 MG PO ×2 (08:28→21:39)
[2025-08-29] MEDS: Ensure Plus High Protein 120 ML LIQUID PO (08:31)
--- NOTE | 2025-08-29 08:54 | PN.HOSP_ITS ---
Reason for Visit Chief Complaint: Lightheadedness, dizziness. Objective Data Objective Data Vital Signs: Vital Signs Temp Pulse Resp BP Pulse Ox O2 Del Method 97.7 F L 57 L 14 110/72 98 Room Air 08/29/25 08:24 08/29/25 08:24 08/29/25 08:24 08/29/25 08:24 08/29/25 08:24 08/29/25 08:24 Oxygen Delivery Method Room Air Weight: 147 lb 14.883 oz Body Mass Index (BMI) 26.2 Intake & Output: Intake and Output for Last 24 Hours 08/27/25 08/28/25 08/29/25 23:59 23:59 23:59 Intake Total 2049 470 / 470 Balance 2049 470 / 470 Lab / Micro Data 08/29/25 05:26 08/29/25 05:26 Labs: Laboratory Results - last 24 hr 08/28/25 16:57: WBC 10.4, RBC 3.07 L, Hgb 9.0 L, Hct 29.3 L, MCV 95.4, MCH 29.3, MCHC 30.7 L, RDW Std Deviation 63.7 H, RDW Coeff of Aisha 18.3 H, Plt Count 224, MPV 11.4, Immature Gran % (Auto) 0.600, Neut % (Auto) 67.9, Lymph % (Auto) 21.0, [place] % (Auto) 4.5, Eos % (Auto) 5.1 H, Baso % (Auto) 0.9, Absolute Neuts (auto) 7.1, Absolute Lymphs (auto) 2.19, Nucleated RBC % 0, PT 17.9 H, INR 1.4, APTT 34.6, Sodium 140, Potassium 3.7, Chloride 111 H, Carbon Dioxide 15.3 L, Anion Gap 14, BUN 31 H, Creatinine 2.68 H, Estim Creat Clear Calc 18.03 L, Est GFR (MDRD) Non-Af 19 L, BUN/Creatinine Ratio 11.7, Glucose 183 H, Calcium 8.9, Total Bilirubin 3.32 H, Direct Bilirubin 2.58 H, AST 149 H, ALT 127 H, Alkaline Phosphatase 3391 H, Troponin T High Sens 21 H, NT pro BNP II 931 H, Total Protein 6.6, Albumin 3.2 L, Globulin 3.4, Lipase 172 H 08/28/25 17:47: Urine Color Yellow, Urine Clarity Clear, Urine pH 6.0, Ur Specific [place] 1.020, Urine Protein 500 H, Urine Glucose (UA) Normal, Urine Ketones Negative, Urine Occult Blood 150 H, Urine Nitrite Positive H, Urine Bilirubin 3 H, Urine Urobilinogen 4 H, Ur Leukocyte Esterase 100 H, Urine RBC 5- 10 SEEN, Urine WBC 10-25 SEEN, Ur Squamous Epith Cells 5-10 SEEN, Urine Bacteria 3+, Hyaline Casts 0-5 SEEN, Fine Granular Casts 5-10 SEEN, Urine Mucus 0 SEEN 08/28/25 19:03: Phosphorus 4.3, Magnesium 2.2, Troponin T Hi Sens 2 Hr 18 H 08/28/25 21:44: Iron 83, TIBC 209 L, Iron Saturation 39.7, Unsaturated IBC 126 L , Ferritin 278, Troponin T Hi Sens 4Hr 18 H 08/29/25 01:36: Ur Random Sodium 90, Urine Creatinine 41.10 08/29/25 05:26: WBC 7.6, RBC 2.59 L, Hgb 7.6 L, Hct 24.6 L, MCV 95.0, MCH 29.3, MCHC 30.9 L, RDW Std Deviation 63.2 H, RDW Coeff of Aisha 18.3 H, Plt Count 204, MPV 11.6, Immature Gran % (Auto) 0.800, Neut % (Auto) 64.6, Lymph % (Auto) 23.1, [place] % (Auto) 5.6, Eos % (Auto) 5.0, Baso % (Auto) 0.9, Absolute Neuts (auto) 4.9, Absolute Lymphs (auto) 1.76, Nucleated RBC % 0, PT 14.4, INR 1.1, APTT 29.2, Sodium 144, Potassium 3.5, Chloride 118 H, Carbon Dioxide 15.0 L, Anion Gap 11, BUN 27 H, Creatinine 2.37 H, Estim Creat Clear Calc 20.32 L, Est GFR (MDRD) Non-Af 22 L, BUN/Creatinine Ratio 11.4, Glucose 170 H, Hemoglobin A1c 5.8 H, Calcium 8.5, Total Bilirubin 3.81 H, AST 205 H, ALT 136 H, Alkaline Phosphatase 3236 H, Total Protein 5.8 L, Albumin 2.9 L, Globulin 2.9, Albumin/Globulin Ratio 1.0 Radiography Diagnostic Testing: Radiology Impression Chest X-Ray 08/28/25 17:19 IMPRESSION: No acute abnormality Reading Location: [facility] Abdomen/Pelvis CT 08/28/25 18:42 IMPRESSION: Suspect probable treatment of the aortic aneurysm with 2 separate structures both bifurcating into what appear to be iliac vessels. Recommend confirmation of the suspicion with a contrast-enhanced study as well as correlation with the surgical history. It is my understanding the patient has renal failure. If this scan can not be obtained I would consult vascular surgery Importantly, there is no extravasation of fluid on the current study to suggest rupture. A reading will be called at the time of dictation at 8:30 p.m. on 08/28/2025 to the ER Reading Location: [facility] Physical Exam Narrative Seen and examined. History taken from the patient and her at the bedside. Patient is states that since October 2024, her stomach gets filled up orally therefore cannot eat much. As per she lost 40 pounds since then. Her weight in February 2015 was 185 pound. Currently 147 pound . She send she is not on any GLP-1 agonist She was feeling dizzy and lightheaded for last 3 weeks and dyspnea on exertion going up stairs or walking long distance. She was found orthostatic positive on admission. This got more prominent after she attended her 's mother on August 07, 2025 No fever or flulike symptoms or lower urinary tract symptoms. She denies history of liver disease or pancreas. She had cholecystectomy a long time ago Physical exam General: Alert, Oriented x3, Cooperative HEENT: Atraumatic, PERRLA, EOMI, Normocephalic. Oral: No Gingival or Mucosal Lesions/ Ulcerations Neck: Supple, No JVD, Negative Carotid Bruits Chest wall/Lungs: Air entry diminished in bilateral lung bases. No crepitation/rhonchi Cardiovascular: Sinus bradycardia, heart rate 50s. Normal S1,S2, systolic murmur Abdomen: Bowel Sounds Present, Soft, Non Tender, Non-Distended : No dysuria. No renal angle tenderness. No suprapubic tenderness. Extremities: No edema, Capillary Refill Less than 3 Seconds Skin: No rashes, No breakdown Musculoskeletal: No Tenderness to Palpation of Joints or Extremities Neurological: Cranial nerves II-XII grossly intact, DTR 2+/4. No acute focal neurological deficit. Psych/Mental Status: Flat affect Assessment & Plan Assessment/Plan (1) UTI (urinary tract infection): PLAN: Plan The patient is a 70 y female was admitted with lightheadedness with dizziness with movement. Difficulty with balance. Denies vertigo. Short of breath on walking and no significant oral intake/getting #1. Unclear whether but most likely asymptomatic bacteriuria: Patient is being admitted in PCU patient denies any recent symptoms of UTI/asymptomatic bacteria burning micturition, increased frequency or urgency or new LUT symptoms. UA is positive of LE 100, nitrite positive, WBC 10-25 cells, RBC 5-10 cells, squamous cells 5-10 cells, bacteria 3+. Started on IV ceftriaxone in ED then changed to IV cefepime 400 mention region. Urine culture ordered #2. Acute liver injury, etiology unclear mainly cholestatic pattern: CT abdomen pelvis without contrast mainly shows liver spleen and pancreas grossly unremarkable. Hold rosuvastatin Patient liver chemistry in April 2015 was not normal with elevated alkaline phosphatase since April 14, 2015 in the range of 350. Patient admitted with T. bili 3.32/direct 2.58, between 100 250. Repeat transaminase shows an slight increase along with total bilirubin. Liver ultrasound ordered for tomorrow AM. If if findings unclear, consider MRCP. GI consulted. Avoid hepatotoxic medications including Tylenol and NSAIDs. The patient was on IV ceftriaxone for possible cholestatic liver injury but changed to IV cefepime as is more broad- spectrum coverage and also does not have reaction with IV Ringer lactate which is ordered as mentioned below. Tylenol only for fever more than 101 Fahrenheit. #3. Lightheadedness, dizziness with significant orthostasis, multifactorial, likely secondary to noted above: Orthostatic vitals were positive in ED. IV fluid Ringer lactate ordered. #4. Probably acute on chronic normocytic normochromic anemia: Admission hemoglobin 9.0/29.3., MCV 95.4, previously had been primarily 12-13 gram percent in 2015 about 10 years. Iron level is ordered. H&H dropped to 7.6/24%. Stool for occult blood ordered patient denies any acute GI bleed. There is no mention about stomach or bowel in the CT scan of abdomen and pelvis. Patient on Xarelto at home and therefore discontinued because of severe anemia. Monitor H&H Q8 hourly. Mildly elevated troponin 21, 18 and 18 all similar and flat intermittent. Indeterminate because of mild troponin elevation. Serum iron, saturation and ferritin normal. Low TIBC and unsaturated IBC therefore anemia of chronic disease. Probably due to Xarelto. Reticulocyte fraction ordered #5. Acute kidney injury on CKD stage III: Secondary to possibly poor intake/dehydration, 41/2.68, GFR 19. Admission BUN/Cr 31/2.68, GFR 19, prior baseline creatinine noted to be primarily 1.2-1.5. On hydration BUN/creatinine showing improvement 27/2.37. Sodium 144, potassium 3.5. Urine sodium 90, creatinine 41.4. IV fluid Ringer lactate ordered. Creatinine is improving discussed verbally with Dr. Castro suggested IV fluid Ringer lactate. CT abdomen although not reported about kidneys but images reviewed, does not show hydronephrosis #7. Hyperglycemia without reported diabetic history most likely prediabetic: Admission glucose 183, A1c 5.8%. Suggestive of prediabetes #8. CAD: Status post PCI. Continue aspirin, hold Xarelto. #9. PAD: Status post aortobifemoral bypass. continue medications as mentioned above #10. Hypertension: Given significant orthostasis. Antihypertensive medications held because of orthostatic hold for SBP less than 130 mmHg. #11. Hyperlipidemia: As mentioned above allergy to atorvastatin but was on rosuvastatin. Currently on #12. PAF: continue patient home sotalol. Holds Xarelto #13. GERD: Not on regimen, as needed Mylanta. #14. DVT prophylaxis: Xarelto discontinued because of severe anemia as mentioned above. Bilateral SCDs #15. CODE status: Patient does not have healthcare power of senior trial attorney or living will in place but notes her who is present would be her medical decision-maker if necessary. Discussed CODE status at length including difference between FULL code, DNR-CCA and DNR-CC status. Following discussions about the differences in these status, requested Full Code status. Laboratory Results 08/28/25 16:57: WBC 10.4, RBC 3.07 L, Hgb 9.0 L, Hct 29.3 L, MCV 95.4, MCH 29.3, MCHC 30.7 L, RDW Std Deviation 63.7 H, RDW Coeff of Aisha 18.3 H, Plt Count 224, MPV 11.4, Immature Gran % (Auto) 0.600, Neut % (Auto) 67.9, Lymph % (Auto) 21.0, [place] % (Auto) 4.5, Eos % (Auto) 5.1 H, Baso % (Auto) 0.9, Absolute Neuts (auto) 7.1, Absolute Lymphs (auto) 2.19, Nucleated RBC % 0, PT 17.9 H, INR 1.4, APTT 34.6, Sodium 140, Potassium 3.7, Chloride 111 H, Carbon Dioxide 15.3 L, Anion Gap 14, BUN 31 H, Creatinine 2.68 H, Estim Creat Clear Calc 18.03 L, Est GFR (MDRD) Non- Af 19 L, BUN/Creatinine Ratio 11.7, Glucose 183 H, Calcium 8.9, Total Bilirubin 3.32 H, Direct Bilirubin 2.58 H, AST 149 H, ALT 127 H, Alkaline Phosphatase 3391 H, Troponin T High Sens 21 H, NT pro BNP II 931 H, Total Protein 6.6, Albumin 3.2 L, Globulin 3.4, Lipase 172 H 08/28/25 17:47: Urine Color Yellow, Urine Clarity Clear, Urine pH 6.0, Ur Specific [place] 1.020, Urine Protein 500 H, Urine Glucose (UA) Normal, Urine Ketones Negative, Urine Occult Blood 150 H, Urine Nitrite Positive H, Urine Bilirubin 3 H, Urine Urobilinogen 4 H, Ur Leukocyte Esterase 100 H, Urine RBC 5- 10 SEEN, Urine WBC 10-25 SEEN, Ur Squamous Epith Cells 5-10 SEEN, Urine Bacteria 3+, Hyaline Casts 0-5 SEEN, Fine Granular Casts 5-10 SEEN, Urine Mucus 0 SEEN 08/28/25 19:03: Phosphorus 4.3, Magnesium 2.2, Troponin T Hi Sens 2 Hr 18 H 08/28/25 21:44: Iron 83, TIBC 209 L, Iron Saturation 39.7, Unsaturated IBC 126 L , Ferritin 278, Troponin T Hi Sens 4Hr 18 H 08/29/25 01:36: Ur Random Sodium 90, Urine Creatinine 41.10 11/16/25 05:26: WBC 7.6, RBC 2.59 L, Hgb 7.6 L, Hct 24.6 L, MCV 95.0, MCH 29.3, MCHC 30.9 L, RDW Std Deviation 63.2 H, RDW Coeff of Aisha 18.3 H, Plt Count 204, MPV 11.6, Immature Gran % (Auto) 0.800, Neut % (Auto) 64.6, Lymph % (Auto) 23.1, [place] % (Auto) 5.6, Eos % (Auto) 5.0, Baso % (Auto) 0.9, Absolute Neuts (auto) 4.9, Absolute Lymphs (auto) 1.76, Nucleated RBC % 0, PT 14.4, INR 1.1, APTT 29.2, Sodium 144, Potassium 3.5, Chloride 118 H, Carbon Dioxide 15.0 L, Anion Gap 11, BUN 27 H, Creatinine 2.37 H, Estim Creat Clear Calc 20.32 L, Est GFR (MDRD) Non-Af 22 L, BUN/Creatinine Ratio 11.4, Glucose 170 H, Hemoglobin A1c 5.8 H, Calcium 8.5, Total Bilirubin 3.81 H, AST 205 H, ALT 136 H, Alkaline Phosphatase 3236 H, Total Protein 5.8 L, Albumin 2.9 L, Globulin 2.9, Albumin/Globulin Ratio 1.0 Charges/Coding Addendum Addendum: Total time of the visit including total time spent in counseling or coordination of care, (more than 50% of the total time, spent in obtaining medical information from nurses and other ancillary care providers ,explaining to the patient about labs, imaging, diagnosis and management of active complex medical conditions), multiple acute issues including orthostatic hypotension, acute liver injury, acute kidney injury on CKD and severe anemia and complicated past, review of labs and imaging is 40 minutes. Visit Charges Inpatient E&M: 20499 Subs Hosp L3
[2025-08-29 11:26] LABS: Hematocrit 25.1 % (37-47); Hemoglobin 7.9 g/dL (12.0-15.0); Immature Reticulocyte Fraction 25.90 % (3.00-15.90); Platelet Count 185 K/mm3 (150-450); Reticulocyte Count 4.01 % (0.5-1.5)
[2025-08-29 11:53] LABS: LDH 204 U/L (84-246)
[2025-08-29] MEDS: Cefepime HCl 1 GM in 0.9% Normal Saline (50mL MB+) 50 ML IV ×3 (11:57→21:37)
[2025-08-29] MEDS: Lactated Ringers 1,000 ML 100 ML IV ×2 (11:58→21:36)
[2025-08-29] MEDS: Senna/Docusate Sodium 1 Tablet 2 TABLET PO (11:58)
--- NOTE | 2025-08-29 16:52 | EX.PCM.CON.G ---
HPI Consult Data Date of Consult: 08/29/25 HPI Narrative Reason for Consultation: Abnormal LFTs HPI Narrative: KIT QUIROGA, is a 70 y/o F w/ PMHx: CAD s/p PCI, PAF, PAD s/p previous chart documented aortofemoral bypass (on aspirin and Plavix with Xarelto), HTN, HLD, GERD, CKD stage III presents to the [facility] ED on 08/28/2025 with complain of intermittent lightheadedness especially with any movement with no specific symptoms with rest but notable lightheadedness with any activities . T. bili 3.32, D bili 2.58, AST/LT 149/127, alk phos 3391. She has a GFR of 20. She had a CT scan abdomen pelvis but it was without IV contrast and it did not note any abnormalities in the liver, spleen or pancreas. She is status post cholecystectomy several years ago and currently has no abdominal pain. I was asked to see her in consultation due to her increased LFTs. ] [facility] Medical History Dyslipidemia Tobacco abuse Hypertension PVD (peripheral vascular disease) CAD (coronary artery disease) Paroxysmal atrial fibrillation Cataract PAD (peripheral artery disease) Acid reflux Home Medications Medication Instructions Recorded Last Taken Type amlodipine 5 mg tablet 5 mg PO DAILY blood pressure 03/01/15 08/27/25 22:52 History aspirin 81 mg tablet,delayed 81 mg PO DAILY@0800 heart 03/01/15 08/28/25 08:52 History release isosorbide mononitrate 30 mg 30 mg PO DAILY heart 03/01/15 08/27/25 22:52 History tablet,extended release 24 hr rivaroxaban 20 mg tablet (Xarelto) 20 mg PO DAILY blood thinner 03/01/15 08/27/25 18:52 History rosuvastatin 40 mg tablet (Crestor) 40 mg PO QHS cholesterol 03/01/15 08/27/25 22:53 History sotalol 80 mg tablet (Betapace AF) 40 mg PO BID heart 03/01/15 08/28/25 08:53 History lisinopril 40 mg tablet 40 mg PO DAILY blood pressure 08/28/25 08/28/25 10:52 History Allergy/AdvReac Type Severity Reaction Status Date / Time cephalexin monohydrate (From Allergy Itching Verified 08/28/25 16:45 Keflex) sulfamethoxazole (From Allergy Rash Verified 08/28/25 16:45 Bactrim) trimethoprim (From Bactrim) Allergy Rash Verified 08/28/25 16:45 atorvastatin calcium (From AdvReac Pain in Verified 08/28/25 16:45 Lipitor) joints Family History adopted Surgical History H/O aorto-femoral bypass H/O heart artery stent S/P cholecystectomy Social History household members: spouse Smoking Status: Current every day smoker tobacco type: cigarettes alcohol intake: current alcohol intake frequency: holidays/special occasions only substance use type: does not use ROS Constitutional Constitutional: Denies fatigue, fever(s), poor appetite, weight gain or weight loss Gastrointestinal Gastrointestinal: Denies belching, bloating, change in bowel habits, change in stool character, chewing difficulty, coffee ground emesis, constipation, cramping, diarrhea, dyspepsia, dysphagia, early satiety, excessive flatus, fecal incontinence, heartburn, hematemesis, hematochezia, hemorrhoids, loose stools, melena, nausea, odynophagia, rectal bleeding, tenesmus, vomiting or weight changes Physical Exam Const alert, oriented x3, no apparent distress and healthy appearing General Appearance: cooperative GI normal to inspection, nondistended, normoactive bowel sounds, soft to palpation, non-tender and non-distended Percussion: normal to percussion Rectal Exam: deferred Lab / Micro Data 08/29/25 11:15 08/29/25 05:26 Labs: Laboratory Results - last 24 hr 08/28/25 16:57: WBC 10.4, RBC 3.07 L, Hgb 9.0 L, Hct 29.3 L, MCV 95.4, MCH 29.3, MCHC 30.7 L, RDW Std Deviation 63.7 H, RDW Coeff of Aisha 18.3 H, Plt Count 224, MPV 11.4, Immature Gran % (Auto) 0.600, Neut % (Auto) 67.9, Lymph % (Auto) 21.0, [place] % (Auto) 4.5, Eos % (Auto) 5.1 H, Baso % (Auto) 0.9, Absolute Neuts (auto) 7.1, Absolute Lymphs (auto) 2.19, Nucleated RBC % 0, PT 17.9 H, INR 1.4, APTT 34.6, Sodium 140, Potassium 3.7, Chloride 111 H, Carbon Dioxide 15.3 L, Anion Gap 14, BUN 31 H, Creatinine 2.68 H, Estim Creat Clear Calc 18.03 L, Est GFR (MDRD) Non-Af 19 L, BUN/Creatinine Ratio 11.7, Glucose 183 H, Calcium 8.9, Total Bilirubin 3.32 H, Direct Bilirubin 2.58 H, AST 149 H, ALT 127 H, Alkaline Phosphatase 3391 H, Troponin T High Sens 21 H, NT pro BNP II 931 H, Total Protein 6.6, Albumin 3.2 L, Globulin 3.4, Lipase 172 H 08/28/25 17:47: Urine Color Yellow, Urine Clarity Clear, Urine pH 6.0, Ur Specific [place] 1.020, Urine Protein 500 H, Urine Glucose (UA) Normal, Urine Ketones Negative, Urine Occult Blood 150 H, Urine Nitrite Positive H, Urine Bilirubin 3 H, Urine Urobilinogen 4 H, Ur Leukocyte Esterase 100 H, Urine RBC 5-10 SEEN, Urine WBC 10-25 SEEN, Ur Squamous Epith Cells 5-10 SEEN, Urine Bacteria 3+, Hyaline Casts 0-5 SEEN, Fine Granular Casts 5-10 SEEN, Urine Mucus 0 SEEN 08/28/25 19:03: Phosphorus 4.3, Magnesium 2.2, Troponin T Hi Sens 2 Hr 18 H 08/28/25 21:44: , Troponin T Hi Sens 4Hr 18 H 08/29/25 01:36: Ur Random Sodium 90, Urine Creatinine 41.10 08/29/25 05:26: WBC 7.6, RBC 2.59 L, Hgb 7.6 L, Hct 24.6 L, MCV 95.0, MCH 29.3, MCHC 30.9 L, RDW Std Deviation 63.2 H, RDW Coeff of Aisha 18.3 H, Plt Count 204, MPV 11.6, Immature Gran % (Auto) 0.800, Neut % (Auto) 64.6, Lymph % (Auto) 23.1, [place] % (Auto) 5.6, Eos % (Auto) 5.0, Baso % (Auto) 0.9, Absolute Neuts (auto) 4.9, Absolute Lymphs (auto) 1.76, Nucleated RBC % 0, PT 14.4, INR 1.1, APTT 29.2, Sodium 144, Potassium 3.5, Chloride 118 H, Carbon Dioxide 15.0 L, Anion Gap 11, BUN 27 H, Creatinine 2.37 H, Estim Creat Clear Calc 20.32 L, Est GFR (MDRD) Non-Af 22 L, BUN/Creatinine Ratio 11.4, Glucose 170 H, Hemoglobin A1c 5.8 H, Calcium 8.5, Total Bilirubin 3.81 H, AST 205 H, ALT 136 H, Alkaline Phosphatase 3236 H, Total Protein 5.8 L, Albumin 2.9 L, Globulin 2.9, Albumin/Globulin Ratio 1.0 08/29/25 11:15: Hgb 7.9 L, Hct 25.1 L, Retic Count 4.01 H, Immature Retic Fraction 25.90 H, Retic Hgb Equivalent 25.7 L, Lactate Dehydrogenase 204 Micro: Microbiology 08/29/25 10:43 Stool Stool Occult Blood ([facility]LE[facility]) - Final Occult Blood Positive Imaging Radiology Impression Chest X-Ray 08/28/25 17:19 IMPRESSION: No acute abnormality Reading Location: [facility] Abdomen/Pelvis CT 08/28/25 18:42 IMPRESSION: Suspect probable treatment of the aortic aneurysm with 2 separate structures both bifurcating into what appear to be iliac vessels. Recommend confirmation of the suspicion with a contrast-enhanced study as well as correlation with the surgical history. It is my understanding the patient has renal failure. If this scan can not be obtained I would consult vascular surgery Importantly, there is no extravasation of fluid on the current study to suggest rupture. A reading will be called at the time of dictation at 8:30 p.m. on 08/28/2025 to the ER Reading Location: [facility] Assessment & Plan Assessment/Plan (1) Cholestatic hepatitis: (2) Jaundice: PLAN: The patient is a 70-year-old female with a complex medical history who presented with lightheadedness and was found to have significantly elevated liver function tests (LFTs) and a markedly elevated alkaline phosphatase. Her history includes CAD s/p PCI, PAF, PAD s/p aortofemoral bypass (on aspirin, Plavix, and Xarelto), HTN, HLD, GERD, and CKD stage III with a GFR of 20.The lab values, particularly the disproportionately high alkaline phosphatase (3391 U/L) relative to the AST/ALT elevations, are highly suggestive of a biliary obstruction or cholestatic process. The direct bilirubin is also elevated, consistent with obstruction. The patient's lack of abdominal pain is unusual for acute obstruction but does not rule it out. Her GFR of 20 is also a crucial factor in managing diagnostics.The prior non-contrast CT was unremarkable, but contrast would be needed to fully evaluate vascular structures or subtle mass lesions. She was also discovered to have a significant anemia. Given the high suspicion for biliary pathology and the patient's renal impairment, further non-invasive imaging that does not require IV contrast is indicated.Potential etiologies include: Biliary obstruction: Common bile duct stone, stricture, or mass (given high alk phos). Medication-induced liver injury: The patient is on multiple medications (aspirin, Plavix, Xarelto, others not listed for HTN/HLD/GERD) which could potentially contribute, though the LFT pattern strongly favors obstruction. Ischemic hepatitis: Less likely given the chronic presentation of lightheadedness and the LFT pattern (ischemia usually presents with massive AST/ALT spikes). Primary sclerosing cholangitis, primary biliary cirrhosis, IgG associated cholangiopathy are also on the differential diagnosis Anemia chronic disease with possible acute on chronic GI blood loss anemia. She has never had a colonoscopy but she is agreeable to an upper endoscopy if needed. Plan: Diagnostics: Obtain a focused right upper quadrant ultrasound (RUQ US) with Doppler to evaluate the biliary tree for dilation, stones, and flow dynamics. This is the initial non-invasive imaging of choice given the renal impairment. If US is inconclusive but suspicion for obstruction remains high, consider Magnetic Resonance Cholangiopancreatography (MRCP), which does not require iodinated contrast. Monitor serial LFTs and clinical status. Check IgG4, RONAL, ANCA, ESR, CRP, celiac profile, anti-smooth muscle antibody, antimitochondrial antibody, hepatitis profile, HIV, ferritin, TIBC, transferrin saturation, protein electrophoresis Therapeutics: N/A at this time; treatment depends on the underlying cause identified by diagnostics. Portions of this note were generated using voice recognition software ([employer]). I have reviewed the contents and every effort has been made to ensure accuracy; however, inadvertent errors in grammar, spelling, punctuation, or word choice may occur, that were not noted before signing the document and should not alter the intended clinical meaning. Charges/Coding Visit Charges Inpatient E&M: 66670 Init Hosp L3
[2025-08-29 17:49] LABS: Hematocrit 25.8 % (37-47); Hemoglobin 8.3 g/dL (12.0-15.0)
[2025-08-29 19:14] LABS: CRP 25.70 mg/L (0.0-3.0); LDH 226 U/L (84-246)
[2025-08-30 03:32] VITALS: BP 121/55; PULSE 58; RESP 18; TEMP 36.4; O2SAT 97
[2025-08-30 04:05] LABS: Hematocrit 23.3 % (37-47); Hemoglobin 7.5 g/dL (12.0-15.0); Immature Granulocytes Count 0.070 X10^3/uL (0.0-0.0); Mean Corp Hgb Conc 32.2 g/dL (32-36); Mean Corpuscular Volume 93.6 fL (81-99); Mean Platelet Vol. 11.8 fl (6.2-12.0); NRBC Flagged by Analyzer 0.2 % (0-5); Platelet Count 188 K/mm3 (150-450); RBC Distribution Width CV 18.6 % (11.6-14.6); RBC Distribution Width SD 63.0 fl (35.1-43.9); Red Blood Count 2.49 M/mm3 (4.2-5.4); White Blood Count 8.3 K/mm3 (4.4-11.0)
[2025-08-30 04:42] LABS: AST(SGOT) 242 U/L (<=31); Alanine Aminotransfer ALT/SGPT 159 U/L (<=34); Albumin, Serum 2.8 g/dL (3.4-4.8); Alkaline Phosphatase 3303 U/L (35-104); Anion Gap 12 (5-15); BUN 23 mg/dL (4-19); BUN/Creat Ratio 10.9 RATIO (10-20); Bilirubin, Direct 3.93 mg/dL (0.00-0.30); Calcium,Total 8.7 mg/dL (7.6-11.0); Carbon Dioxide 13.8 mmol/L (21.0-32.0); Chloride 116 mmol/L (98-108); Estimated Creatinine Clearance 22.51 ml/min (50-250); Globulin 3.0 g/dL (2.2-4.2); Glucose 168 mg/dL (70-99); Potassium 3.5 mmol/L (3.3-5.1)
[2025-08-30] MEDS: Cefepime HCl 1 GM in 0.9% Normal Saline (50mL MB+) 50 ML IV ×3 (05:34→22:17)
[2025-08-30 05:36] VITALS: BMI 26.4
--- NOTE | 2025-08-30 05:55 | US_ITS ---
PROCEDURE: LIVER 08/30/2025 REASON FOR EXAM: HYPERBILI/ELEVATED LFTS TECHNIQUE: Procedure Code: USLI Modality: US Procedure: LIVER COMPARISON: Prior CT scan of the abdomen and pelvis dated August 28, 2025. FINDINGS: Liver: Heterogeneous parenchymal echotexture. Dilated intrahepatic biliary ducts. Gallbladder: Surgically absent. Common bile duct: Dilated measuring up to 12 mm. . Pancreas: Limited visualization of the pancreas due to overlying bowel gas. There is suspicion for a 4 cm 4.9 cm 4 cm solid mass in the head of the pancreas. The common bile duct is seen entering this mass. Other: Visualized portions of the right kidney are unremarkable. No right upper quadrant ascites. US/Liver IMPRESSION: Dilated intrahepatic biliary ducts as well as the common bile duct. Findings s uspicion for a 4 cm x 4.9 cm x 4 cm solid mass in the region of the head of the pancreas. Reading Location: [id number]
[2025-08-30 06:53] VITALS: O2SAT 95
[2025-08-30 08:00] VITALS: BP 119/76; PULSE 64; RESP 16; TEMP 36.5; O2SAT 96
--- NOTE | 2025-08-30 08:57 | PN.HOSP_ITS ---
Reason for Visit Chief Complaint: Lightheadedness, dizziness. Subjective Subjective Could only tolerate part of the MRI despite lorazepam Objective Data Objective Data Vital Signs: Vital Signs Temp Pulse Resp BP Pulse Ox O2 Del Method 36.5 C L 64 16 119/76 96 Room Air 08/30/25 08:00 08/30/25 08:00 08/30/25 08:00 08/30/25 08:00 08/30/25 08:00 08/30/25 08:00 Oxygen Delivery Method Room Air Weight: 67.7 kg Body Mass Index (BMI) 26.4 Intake & Output: Intake and Output for Last 24 Hours 08/28/25 08/29/25 08/30/25 23:59 23:59 23:59 Intake Total 2049 3383.33 / 3383.33 1050 / 1050 Balance 2049 3383.33 / 3383.33 1050 / 1050 Lab / Micro Data 08/30/25 03:23 08/30/25 03:23 Labs: Laboratory Results - last 24 hr 08/29/25 11:15: Hgb 7.9 L, Hct 25.1 L, Retic Count 4.01 H, Immature Retic Fraction 25.90 H, Retic Hgb Equivalent 25.7 L, Lactate Dehydrogenase 204 08/29/25 17:33: Hgb 8.3 L, Hct 25.8 L, ESR 74 H, Lactate Dehydrogenase 226, C- React Prot Ext Range 25.70 H 08/30/25 03:23: WBC 8.3, RBC 2.49 L, Hgb 7.5 L, Hct 23.3 L, MCV 93.6, MCH 30.1, MCHC 32.2, RDW Std Deviation 63.0 H, RDW Coeff of Aisha 18.6 H, Plt Count 188, MPV 11.8, Immature Gran % (Auto) 0.800, Neut % (Auto) 68.0, Lymph % (Auto) 21.9, [place] % (Auto) 5.2, Eos % (Auto) 3.6, Baso % (Auto) 0.5, Absolute Neuts (auto) 5.6, Absolute Lymphs (auto) 1.81, Nucleated RBC % 0.2, Sodium 142, Potassium 3.5, Chloride 116 H, Carbon Dioxide 13.8 L, Anion Gap 12, BUN 23 H, Creatinine 2.14 H, Estim Creat Clear Calc 22.51 L, Est GFR (MDRD) Non-Af 24 L, BUN/Creatinine Ratio 10.9, Glucose 168 H, Calcium 8.7, Total Bilirubin 4.59 H, D irect Bilirubin 3.93 H, AST 242 H, ALT 159 H, Alkaline Phosphatase 3303 H, Total Protein 5.7 L, Albumin 2.8 L, Globulin 3.0, ALMA-1 Antibody TNP, Sm (Lester) Antibody TNP, MEDICAL EDITOR Antibody TNP, Scl-70 Scleroderma Ab TNP, Antichromatin Antibodies TNP, Centromere B Antibody TNP Micro: Microbiology 08/29/25 10:43 Stool Stool Occult Blood (ARLETH) - Final Occult Blood Positive Physical Exam Const alert and no apparent distress HEENT head/scalp atraumatic and moist oral mucous membranes HEENT Narrative: icterus Resp normal respiratory effort, no retractions, no use of accessory muscles and clear to auscultation bilaterally Cardio regular rate, regular rhythm, S1 normal heart sound and S2 normal heart sound GI normal to inspection, nondistended, normoactive bowel sounds GI Narrative: hepatomegaly Extremity normal to inspection Skin Skin Narrative: jaundice Psych affect normal Assessment & Plan Assessment/Plan (1) UTI (urinary tract infection): PLAN: Plan Abnormal UA * equivocal UA. * on cefepime. If UCx negative, would DC abx. Transaminitis * 2/2 pancreatic mass * MRCP: irregular signal lesion at the pancreatic head measuring 4.2x5cm. * GI consult * on empiric cefepime * autoimmune panel ordered. viral studies * I discussed with Dr. Webb to see if a CT-guided biopsy would be possible. He said it could, but may be limited by bowel gas. I discussed with Dr. Velasquez, who will attempt biopsies tomorrow with ERCP. Chronic conditions: * CAD: Status post PCI. Continue aspirin, hold Xarelto. * PAD: Status post aortobifemoral bypass. continue medications as mentioned above * Hypertension: Given significant orthostasis. Antihypertensive medications held because of orthostatic hold for SBP less than 130 mmHg. * Hyperlipidemia: As mentioned above allergy to atorvastatin but was on rosuvastatin. Currently on * PAF: continue patient home sotalol. Holds Xarelto * GERD: Not on regimen, as needed Mylanta. DVT prophylaxis: Xarelto discontinued because of severe anemia as mentioned above. Bilateral SCDs CODE status: Patient does not have healthcare power of electric motor rebuilder or living will in place but notes her who is present would be her medical decision- maker if necessary. Discussed CODE status at length including difference between FULL code, DNR-CCA and DNR-CC status. Following discussions about the differences in these status, requested Full Code status. Charges/Coding Visit Charges Inpatient E&M: 77747 Subs Hosp L2
[2025-08-30] MEDS: Sotalol Hydrochloride 80 MG Tablet 40 MG PO ×2 (11:00→22:21)
--- NOTE | 2025-08-30 13:58 | CASEMGMT ---
JEANNA COMER Assessment: Face to Face with pt for initial transition planning/care coordination assessment. RN SOULEYMANE introduced self and role at [facility], pt voices understanding and consents to assessment. Pt is A&O x4 and answers all questions appropriately at this time. Pt lying in bed in no distress. Care providers, pharmacy, and demographics verified/updated. Admitting Dx: LH/Dizziness, orthostatic, UTI and anemia Strata Score: 2 PCP:Denies, provided pt with a local healthcare directory pamphlet. Pt denies need for assistance of setting up PCP. Specialists:timmy Wilburn Preferred Pharmacy: [facility] Insurance: [facility] Prescription Benefit: yes LNOK: Isidro Garcia, Living Arrangements: Pt lives with in a two story home with 3 steps to enter with a rail. Pt reports she is I in ADL/IADLs and denies concerns at home. Transportation: Pt drives self and denies concerns with transportation. DME:FWW, cane- Pt doesn't use AD. HHC/SNF: Denies hx of Pt states no concerns with going home at time of dc. Pt states no further concerns/needs. CM to follow. Advised pt to ask CM if any further questions/concerns/needs arise, voices understanding. Pt Goal: Home Plan: Home Edita MEEKS CM
[2025-08-30 14:00] VITALS: BP 121/74; PULSE 57; RESP 16; TEMP 36.4; O2SAT 99
--- NOTE | 2025-08-30 16:58 | MRI_ITS ---
PROCEDURE: MRCP ABDOMEN WITHOUT CONTRAST 08/30/2025 REASON FOR EXAM: OBSTRUCTIVE JAUNDICE TECHNIQUE: Procedure Code: MRIMRCP Modality: MR Procedure: MRCP ABDOMEN WITHOUT CONTRAST Multiplanar and multisequence images were obtained. CONTRAST: None COMPARISON: August 28, 2025 CT FINDINGS: The exam is limited by patient tolerance. There is an abdominal aortic aneurysm measuring 7.7 cm in length by 4.1 cm in AP diameter by 4.2 cm transversely, which extends in a saccular manner from the level of the renal vessels inferiorly with irregular plaque. There is an irregular mixed to high T2, mixed T1 signal lesion at the pancreatic head measuring 4.2 x 5.0 cm. There is a irregular and severe enlargement of the pancreatic duct, measuring 1.5 cm in the proximal body, 1.3 cm in the tail. The distal common bile duct is dilated to 1.2 cm in the pancreatic head. There is moderate intrahepatic biliary dilation. Bilateral renal cysts are partly visible measuring 0.8 cm in the midpole on the right, 1.4 cm in the midpole on the left. There is an irregular mixed T2 signal lesion in the superior aspect of the spleen measuring 2.0 cm, axial image 5/30. There is no significant free fluid. MRI/MRCP Abdomen without Contrast IMPRESSION: The exam is limited by patient tolerance. There is an abdominal aortic aneurysm measuring 7.7 cm in length by 4.1 cm in A P diameter by 4.2 cm transversely, which extends in a saccular manner from the level of the renal vessels inferiorly with irregu lar plaque. There is an irregular mixed to high T2, mixed T1 signal lesion at the pancreati c head measuring 4.2 x 5.0 cm. There is a irregular and severe enlargement of the pancreatic duct, measuring 1 .5 cm in the proximal body, 1.3 cm in the tail. The distal common bile duct is dilated to 1.2 cm in the pancreatic head. There is moderate intrahepatic biliary dilation. Bilateral renal cysts are partly visible measuring 0.8 cm in the midpole on the right, 1.4 cm in the midpole on the left. There is an irregular mixed T2 signal lesion in the superior aspect of the sple en measuring 2.0 cm, axial image 5/30. Reading Location: [facility]
[2025-08-30 22:00] VITALS: BP 98/65; PULSE 81; RESP 16; TEMP 36.5; O2SAT 97
[2025-08-30] MEDS: 0.9% Saline Lock 10 ML Syringe IV (22:21)
[2025-08-30 22:51] VITALS: BMI 26.4
[2025-08-31] VITALS (14 sets, daily range): BP systolic 85–127; BP diastolic 42–72; PULSE 49–73; RESP 14–20; TEMP 36.3–36.9; O2SAT 95–100
[2025-08-31 04:07] LABS: HEPATITIS B SURFACE AG Negative (Negative); Hep C Antibodies Non Reactive (Non Reactive)
[2025-08-31 05:14] LABS: Hematocrit 23.3 % (37-47); Hemoglobin 7.1 g/dL (12.0-15.0); Immature Granulocytes Count 0.080 X10^3/uL (0.0-0.0); Mean Corp Hgb Conc 30.5 g/dL (32-36); Mean Corpuscular Volume 97.5 fL (81-99); Mean Platelet Vol. 12.0 fl (6.2-12.0); NRBC Flagged by Analyzer 0.3 % (0-5); POSITIVE MORPHOLOGY YES; Platelet Count 180 K/mm3 (150-450); RBC Distribution Width CV 19.1 % (11.6-14.6); RBC Distribution Width SD 67.5 fl (35.1-43.9); Red Blood Count 2.39 M/mm3 (4.2-5.4); White Blood Count 7.5 K/mm3 (4.4-11.0)
[2025-08-31 05:20] LABS: Differential Indicated SCAN CRITERIA MET
[2025-08-31 05:29] LABS: Prothrombin Time (Protime)PT. 14.6 SECONDS (11.7-14.9)
[2025-08-31 05:54] LABS: AST(SGOT) 185 U/L (<=31); Alanine Aminotransfer ALT/SGPT 136 U/L (<=34); Albumin, Serum 2.5 g/dL (3.4-4.8); Alkaline Phosphatase 2808 U/L (35-104); Anion Gap 11 (5-15); BUN 22 mg/dL (4-19); BUN/Creat Ratio 9.7 RATIO (10-20); Bilirubin, Direct 3.07 mg/dL (0.00-0.30); Calcium,Total 8.4 mg/dL (7.6-11.0); Carbon Dioxide 14.4 mmol/L (21.0-32.0); Chloride 118 mmol/L (98-108); Estimated Creatinine Clearance 21.59 ml/min (50-250); Globulin 2.8 g/dL (2.2-4.2); Glucose 112 mg/dL (70-99); Potassium 3.6 mmol/L (3.3-5.1)
--- NOTE | 2025-08-31 05:55 | EKG12_ITS ---
Test Reason : AM EKG Blood Pressure : */* mmHG Vent. Rate : 50 BPM Atrial Rate : 50 BPM P-R Int : 144 ms QRS Dur : 94 ms QT Int : 546 ms P-R-T Axes : 61 5 156 degrees QTcB Int : 497 ms Sinus bradycardia with Premature atrial complexes ST & Marked T wave abnormality, consider anterolateral ischemia Prolonged QT Abnormal ECG When compared with ECG of 28-Aug-2025 17:52, Premature atrial complexes are now Present Nonspecific T wave abnormality has replaced inverted T waves in Inferior leads T wave inversion less evident in Lateral leads Confirmed by LESLIE DAVID, FABY ([id number]), production editor HAL BAZAN ([id number]) on 09/01/2025 6:39:18 AM Referred By: Confirmed By: FABY NELSON MD
[2025-08-31 06:04] LABS: Anisocytosis 2+; Differential Comment SCANNED
[2025-08-31 06:05] LABS: Acanthocytes RARE; Basophilic Stippling RARE; Hypochromasia 2+; Macrocytosis 1+; Polychromasia 1+; Schistocytes RARE; Target Cells 2+
[2025-08-31 06:06] LABS: Bite Cell RARE; Tear Drop Cell 1+
[2025-08-31 06:07] LABS: Partial Thromboplast Time 30.3 Seconds (24.1-36.2)
[2025-08-31] MEDS: Cefepime HCl 1 GM in 0.9% Normal Saline (50mL MB+) 50 ML IV (06:22)
--- NOTE | 2025-08-31 08:31 | PN.HOSP_ITS ---
Reason for Visit Chief Complaint: Lightheadedness, dizziness. Subjective Subjective Feeling well. Objective Data Objective Data Vital Signs: Vital Signs Temp Pulse Resp BP Pulse Ox O2 Del Method 36.9 C 51 L 16 96/54 L 97 Room Air 08/31/25 04:30 08/31/25 04:30 08/31/25 04:30 08/31/25 04:30 08/31/25 04:30 08/31/25 04:30 Oxygen Delivery Method Room Air Weight: 67.7 kg Body Mass Index (BMI) 26.4 Intake & Output: Intake and Output for Last 24 Hours 08/29/25 08/30/25 08/31/25 23:59 23:59 23:59 Intake Total 3383.33 / 3383.33 1150 / 1150 Output Total 150 / 150 Balance 3383.33 / 3383.33 1000 / 1000 Lab / Micro Data 08/31/25 04:22 08/31/25 04:22 Labs: Laboratory Results - last 24 hr 08/30/25 03:23: Hepatitis A IgM Ab Negative, Hep Bs Antigen Negative, Hep B Core IgM Ab Negative, Hepatitis C Ab (EIA) Non Reactive, Hep C Ab Comment Comment 08/31/25 04:22: WBC 7.5, RBC 2.39 L, Hgb 7.1 L, Hct 23.3 L, MCV 97.5, MCH 29.7, MCHC 30.5 L D, RDW Std Deviation 67.5 H, RDW Coeff of Aisha 19.1 H, Plt Count 180, MPV 12.0, Immature Gran % (Auto) 1.100 H, Neut % (Auto) 63.2, Lymph % (Auto) 25.6, [place] % (Auto) 5.4, Eos % (Auto) 3.9, Baso % (Auto) 0.8, Absolute Neuts (auto) 4.8, Absolute Lymphs (auto) 1.93, Nucleated RBC % 0.3, Differential Comment SCANNED, Platelet Estimate ADEQUATE, Polychromasia 1+, Hypochromasia 2+, Basophilic Stippling RARE, Anisocytosis 2+, Macrocytosis 1+, Target Cells 2+, Tear Drop Cells 1+, Stomatocytes 1+, Bite Cells RARE, Acanthocytes (Spur) RARE, Schistocytes RARE, PT 14.6, INR 1.1, APTT 30.3, Sodium 144, Potassium 3.6, C hloride 118 H, Carbon Dioxide 14.4 L, Anion Gap 11, BUN 22 H, Creatinine 2.24 H, Estim Creat Clear Calc 21.59 L, Est GFR (MDRD) Non-Af 23 L, BUN/Creatinine Ratio 9.7 L, Glucose 112 H, Calcium 8.4, Total Bilirubin 3.70 H, Direct Bilirubin 3.07 H, AST 185 H, ALT 136 H, Alkaline Phosphatase 2808 H, Total Protein 5.3 L, A lbumin 2.5 L, Globulin 2.8 Micro: Microbiology 08/29/25 10:43 Stool Stool Occult Blood (ARLETH) - Final Occult Blood Positive Radiography Diagnostic Testing: Radiology Impression Echocardiogram 08/28/25 22:35 Interpretation Summary Normal LV size. Left ventricular systolic function is normal. The left ventricular ejection fraction is 65 %. Mild (1+) tricuspid valve insufficiency. Ordering Physician: Josselin Lundberg Referring Physician: DIOR PCP Performed By: Katelynn Alonzo RCS Liver Ultrasound 08/30/25 05:55 IMPRESSION: Dilated intrahepatic biliary ducts as well as the common bile duct. Findings suspicion for a 4 cm x 4.9 cm x 4 cm solid mass in the region of the head of the pancreas. Reading Location: [id number] 08/30/25 16:58 IMPRESSION: The exam is limited by patient tolerance. There is an abdominal aortic aneurysm measuring 7.7 cm in length by 4.1 cm in AP diameter by 4.2 cm transversely, which extends in a saccular manner from the level of the renal vessels inferiorly with irregular plaque. There is an irregular mixed to high T2, mixed T1 signal lesion at the pancreatic head measuring 4.2 x 5.0 cm. There is a irregular and severe enlargement of the pancreatic duct, measuring 1.5 cm in the proximal body, 1.3 cm in the tail. The distal common bile duct is dilated to 1.2 cm in the pancreatic head. There is moderate intrahepatic biliary dilation. Bilateral renal cysts are partly visible measuring 0.8 cm in the midpole on the right, 1.4 cm in the midpole on the left. There is an irregular mixed T2 signal lesion in the superior aspect of the spleen measuring 2.0 cm, axial image 03/12. Reading Location: [facility] Physical Exam Const alert and no apparent distress HEENT head/scalp atraumatic and moist oral mucous membranes Resp normal respiratory effort, no retractions, no use of accessory muscles and clear to auscultation bilaterally Cardio regular rate, regular rhythm, S1 normal heart sound and S2 normal heart sound GI hepatosplenomegaly Palpation: tender Assessment & Plan Assessment/Plan (1) UTI (urinary tract infection): PLAN: Plan Abnormal UA * equivocal UA. * on cefepime. If UCx negative, would DC abx. Transaminitis * 2/2 pancreatic mass * MRCP: irregular signal lesion at the pancreatic head measuring 4.2x5cm. * GI consult * on empiric cefepime * autoimmune panel ordered. viral studies * I discussed with Dr. Webb to see if a CT-guided biopsy would be possible. He said it could, but may be limited by bowel gas. I discussed with Dr. Velasquez, who will attempt biopsies tomorrow with ERCP. Chronic conditions: * CAD: Status post PCI. Continue aspirin, hold Xarelto. * PAD: Status post aortobifemoral bypass. continue medications as mentioned above * Hypertension: Given significant orthostasis. Antihypertensive medications held because of orthostatic hold for SBP less than 130 mmHg. * Hyperlipidemia: As mentioned above allergy to atorvastatin but was on rosuvastatin. Currently on * PAF: continue patient home sotalol. Holds Xarelto * GERD: Not on regimen, as needed Mylanta. DVT prophylaxis: Xarelto discontinued because of severe anemia as mentioned above. Bilateral SCDs CODE status: Patient does not have healthcare power of state attorney or living will in place but notes her who is present would be her medical decision- maker if necessary. Discussed CODE status at length including difference between FULL code, DNR-CCA and DNR-CC status. Following discussions about the differences in these status, requested Full Code status. Charges/Coding Visit Charges Inpatient E&M: 17592 Subs Hosp L2
[2025-08-31 14:09] LABS: Anti-Chromatin <0.2 AI (0.0-0.9); Anti-Jo <0.2 AI (0.0-0.9); Anti-dsDNA Ab 1 IU/mL (0-9); SJOGREN'S Anti-SS-A test < 0.2 AI (0.0-0.9); SJOGREN'S Anti-SS-B test < 0.2 AI (0.0-0.9)
--- NOTE | 2025-08-31 14:30 | NURSING ---
Report called to AC
[2025-08-31] MEDS: Lactated Ringers 1,000 ML 15 ML IV (14:45)
--- NOTE | 2025-08-31 15:30 | PRE.ANES_ITS ---
ASA Classification* ASA Classification ASA Classification: 3 and E Assessment & Plan Anesthesia* Anesthesia Assessment Anesthesia Assessment: Discussed sedation and/or anesthesia options, risks, benefits, and alternatives with patient/parents/legal guardian/POA. Questions invited. The patient/parents/legal guardian/POA seems to understand and agrees to proceed with anesthesia plan. Reviewed the physical assessment, medical history, allergy history and patient home medications list prior to surgery/procedure/anesthetic and documented any changes. Performed airway and anesthesia risk assessments. Anesthesia Type Anesthesia Type: General and MAC History Source History Obtained from:: Patient and Chart Anesthesia Focused Assessment* Temperature: 98.3 F Pulse Rate: 54 Blood Pressure: 99/62 Respiratory Rate: 16 Pulse Ox: 100 Oxygen Delivery Method: Room Air Airway Assessment Mouth opens: >3 cm Mallampati Score: II Teeth Condition: Dentures Neck Range of motion (ROM): Limited ROM Labs Anesthesia Preop lab: CBC WBC, (4.4-11.0) 7.5 K/mm3 Today, 04:22 RBC, (4.2-5.4) 2.39 M/mm3 L Today, 04:22 Hgb, (12.0-15.0) 7.1 g/dL L Today, 04:22 Hct, (37-47) 23.3 % L Today, 04:22 Plt Count, (150-450) 180 K/mm3 Today, 04:22 CHEMISTRY Potassium, (3.3-5.1) 3.6 mmol/L Today, 04:22 Sodium, (133-145) 144 mmol/L Today, 04:22 Magnesium, (1.5-2.2) 2.2 mg/dL 08/28/25, 19:03 Phosphorus, (2.7-4.5) 4.3 mg/dL 08/28/25, 19:03 BUN, (4-19) 22 mg/dL H Today, 04:22 Creatinine, (0.70-1.20) 2.24 mg/dL H Today, 04:22 Glucose, (70-99) 112 mg/dL H Today, 04:22 COAG PT, (11.7-14.9) 14.6 SECONDS Today, 04:22 Pre-Assessment Diagnosis/Proposed Procedure Planned Operative Procedure(s): ERCP with biopsy and stent placement Anesthesia History Anesthesia History - director of nuclear medicine: Anesthesia History - director of nuclear medicine Hx Hospitalization No 05/09/15 12:48 Any Problems With Anesthesia No 08/30/25 22:51 Cholinesterase deficiency No 08/30/25 22:51 You/Your Family Experience No 08/30/25 22:51 fever (hyperthermia) with Relationship Recent Exposure to Contagious No 08/30/25 22:51 Disease Does patient have nerve No 08/30/25 22:51 stimulator Patient instructed to have device shut off --Does patient have Pacemaker or ICD? When Was Last Pacemaker Check QUESTION #4 FULL TEXT: You/Your Family Experience fever (hyperthermia) with Anesthesia Last Oral Intake Last Oral intake: Last Oral Intake NPO since 00:00 08/30/25 22:51 Meds taken in AM with sips of water? Meds patient instructed to take am of surgery PONV PONV - director of nuclear medicine: PONV - director of nuclear medicine Female HX of Motion Sickness HX of N/V After Surgery Non-Smoker Duration of Surgery greater than 60 minutes Number of Risk Factors PONV Score Height & Weight Height & Weight: Anesthesia: Height & Weight Height 5 ft 3 in 08/29/25 10:39 Weight: 67.7 kg 08/30/25 05:36 Body Mass Index (BMI) 26.4 08/30/25 22:51 Respiratory Assessment Respiratory Assessment - director of nuclear medicine: Respiratory Tract Infection Hx - director of nuclear medicine Hx Respiratory Tract Infection No 08/30/25 22:51 STOP Sleep Apnea STOP Sleep Apnea - director of nuclear medicine: STOP Sleep Apnea - director of nuclear medicine Hx Hypertension Yes 08/29/25 13:00 Hx Sleep Apnea No 08/28/25 22:36 CPAP BIPAP Do you snore loudly (louder No 08/28/25 22:36 than talking or can be heard Do you often feel tired/ No 08/28/25 22:36 fatigued/ sleepy during daytime? Has anyone observed you stop No 08/28/25 22:36 breathing during sleep? STOP Results Negative 08/28/25 22:36 QUESTION #5 FULL TEXT : Do you snore loudly (louder than talking or can be heard through closed doors)? 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 Specify any problems Hx of Preganancy in last 3 No 08/28/25 22:36 Months Nurse Filling Out Transfusion AREAD 08/28/25 22:36 & Questions: Date: 08/28/25 08/28/25 22:36 Time: 22:47 08/28/25 22:36 Patient unable to answer at this time (ie. confused, unrespo /Reproduction History /Reproductive History - director of nuclear medicine: /Reproductive Hx- director of nuclear medicine Hx Now No 08/30/25 22:51 Gestational Age (in weeks): EDC: Hx Hx Para Hx Section SAB No 08/30/25 22:51 Does the father of the baby or his family experience fever w Father of the baby Malignant Hypertension history comment Active Medications Active Medications: Current Medications Generic Name Dose Route Start Last Admin Trade Name Freq PRN Reason Stop Dose Admin Acetaminophen 650 mg 08/28/25 22:35 Acetaminophen 325 Mg Tablet PO Q4H PRN PRN Fever, >101 F Albuterol Sulfate 2.5 mg 08/28/25 22:35 Albuterol 2.5 Mg/3 Ml Vial.Neb. INHALATION Q2H PRN PRN Dyspnea, wheezing Aspirin 81 mg 08/29/25 08:00 08/31/25 08:50 Aspirin 81 Mg Tab.Chew PO Not Given BREAKFAST NITESH Sodium Chloride 250 mls @ 15 mls/hr 08/28/25 22:41 IV .[id number] PRN Saline Flush Sodium Chloride 250 mls @ 15 mls/hr 08/28/25 22:41 IV .[id number] PRN Additional IVPB Infusion Sodium Chloride 250 mls @ 15 mls/hr 08/28/25 22:55 IV .[id number] PRN Saline Flush Sodium Chloride 250 mls @ 15 mls/hr 08/28/25 22:55 IV .[id number] PRN Additional IVPB Infusion Cefepime HCl 1 gm/ Sodium 50 mls @ 100 mls/hr 09/01/25 10:00 Chloride IV Q24 NITESH Lactated Ringer's 1,000 mls @ 15 mls/hr 08/31/25 14:45 08/31/25 14:45 IV 15 mls/hr .Q48H NITESH Administration Melatonin 3 mg 08/28/25 22:35 Melatonin 3 Mg Tablet PO QHS PRN PRN INSOMNIA Ondansetron HCl 4 mg 08/28/25 22:35 08/30/25 09:32 Ondansetron 4 Mg/2 Ml Vial IV 4 mg Q8H PRN PRN Administration NAUSEA/VOMITING Senna/Docusate Sodium 2 tablet 08/29/25 10:00 08/31/25 08:50 Senna/Docusate Sodium 1 Tablet PO Not Given BID NITESH Sodium Chloride 10 - 40 ml 08/28/25 22:41 08/30/25 22:21 0.9% Saline Lock 10 Ml Syringe IV 10 ml UD PRN Administration SALINE FLUSH Sodium Chloride 10 - 40 ml 08/28/25 22:55 0.9% Saline Lock 10 Ml Syringe IV UD PRN SALINE FLUSH Sotalol HCl 40 mg 08/28/25 22:35 08/31/25 11:13 Sotalol Hydrochloride 80 Mg Tablet PO Not Given BID [facility] Protocol PFSH Medical History Dyslipidemia Tobacco abuse Hypertension PVD (peripheral vascular disease) CAD (coronary artery disease) Paroxysmal atrial fibrillation Cataract PAD (peripheral artery disease) Acid reflux Home Medications Medication Instructions Recorded Last Taken Type amlodipine 5 mg tablet 5 mg PO DAILY blood pressure 03/01/15 08/27/25 22:52 History aspirin 81 mg tablet,delayed 81 mg PO DAILY@0800 heart 03/01/15 08/28/25 08:52 History release isosorbide mononitrate 30 mg 30 mg PO DAILY heart 02/1108/27/25 22:52 History tablet,extended release 24 hr rivaroxaban 20 mg tablet (Xarelto) 20 mg PO DAILY bloo d thinner 03/01/15 08/27/25 18:52 History rosuvastatin 40 mg tablet (Crestor) 40 mg PO QHS johanne sterol 03/01/15 08/27/25 22:53 History sotalol 80 mg tablet (Betapace AF) 40 mg PO BID heart 03/01/15 08/28/25 08:53 History lisinopril 40 mg tablet 40 mg PO DAILY blood pressur e 08/28/25 08/28/25 10:52 History Allergy/AdvReac Type Severity Reaction Status Date / Time cephalexin monohydrate (From Allergy Itching Verified 08/28/25 16:45 Keflex) sulfamethoxazole (From Allergy Rash Verified 08/28/25 16:45 Bactrim) trimethoprim (From Bactrim) Allergy Rash Verified 08/28/25 16:45 atorvastatin calcium (From AdvReac Pain in Verified 08/28/25 16:45 Lipitor) joints Family History adopted Surgical History H/O aorto-femoral bypass H/O heart artery stent S/P cholecystectomy Social History household members: spouse Smoking Status: Current every day smoker tobacco type: cigarettes alcohol intake: current alcohol intake frequency: holidays/special occasions only substance use type: does not use Review of Systems (Anesthesia) ROS Narrative System reviewed and no additional complaints, except as documented.
--- NOTE | 2025-08-31 15:30 | COLBX_PTH ---
PATIENT: KIT QUIROGA LOC: [facility] U#:[id number] AGE/SX: 70/F ROOM: [facility] RE08/28/[address]: Dr. Prabhu Slade DO : 1955 BED: 1 DIS: 09/05/2025 SPEC #: [id number] RECD: 08/31/25 17:56 STATUS: KANNAN MEJIA #: [id number] DEVON: 08/31/25 15:[address]: Nakul Velasquez DEPT: SURGICAL PATHOLOGY RECD BY: Fran Garza ENTERED: 09/01/25 10:51 SP TYPE: COLON BX OTHR DR: MD Dr. Prabhu Dye DO Dr. Prakash Chand, MD No Primary Care Phys SIDNEY Renae NP-C Lindsey Atanasov, PA Tissues: A - Ampulla of Vater B - Duodenum, NOS Procedures: Immunohistochemical Stains Surgery Specimen Level IV HEADER OPERATION: ERCP with biopsy and stent placement, ren romano PRE-OP DIAGNOSIS: Cholestatic hepatitis, jaundice, urinary tract infection TISSUE SUBMITTED: A- Taty-ampular mass biopsy, B- First portion of duodenum biopsy MICROSCOPIC DIAGNOSIS A. Small intestine, periampulla, biopsy: * Small bowel mucosa with prominent Lc's glands and focal foveolar gastric metaplasia * Negative for dysplasia B. Small intestine, first portion duodenum, biopsy: * Small bowel mucosa with chronic focal active inflammation, prominent Lc's glands and foveolar gastric metaplasia (See note) * Negative for dysplasia Note: Staining for Helicobacter pylori organisms is in progress and will be reported as an addendum MICROSCOPIC DESCRIPTION Slides are reviewed. GROSS DESCRIPTION A. Received in fixative is one container labeled with the patient's name and designated "Periampulla mass." The specimen consists of two irregular fragments of jackman tissue that measure 0.1 and 0.3 cm. The specimen is totally submitted in one cassette. B. Received in fixative is one container labeled with the patient's name and designated "First portion of duodenum biopsy." The specimen consists of multiple irregular fragments of jackman tissue that in aggregate measure 0.7 x 0.6 x 0.1 cm. The specimen is totally submitted in one cassette. KS 09/01/2025 CPT:61439i2,89423 ADDENDUM ADDENDUM ADDENDUM ADDENDUM ADDENDUM ADDENDUM ADDENDUM ADDENDUM ADDENDUM 09/13/2025 10:04 ADDENDUM 09/13/2025 10:04 ADDENDUM 09/13/2025 10:04 ADDENDUM 09/13/2025 10:04 ADDENDUM 09/13/2025 10:04 The Helicobacter pylori immunostain is negative All matched controls reacted appropriately. These tests were developed and their performance characteristics determined by [facility]. They may not have been cleared or approved by the U.S. Food and Drug Administration. The FDA has determined that such clearance or approval is not necessary. The above immunohistochemical markers are viewed by the Pathologist.
[2025-08-31] MEDS: Lactated Ringers 1,000 ML 1000 ML IV (15:55)
[2025-08-31] MEDS: Lidocaine 1% (5 ml sdv) 5 ML Vial 4 ML IV (16:03)
--- NOTE | 2025-08-31 16:15 | RAD_ITS ---
PROCEDURE: ERCP BILIARY/PANCREAS 08/31/2025 REASON FOR EXAM: ERCP W/ BIPOSY AND STENT PLACE TECHNIQUE: Procedure Code: RADERCP Modality: DX Procedure: ERCP BILIARY/PANCREAS COMPARISON: None FINDINGS: 1 image, 405.4 seconds, 73.87 mGy RAD/ERCP Biliary/Pancreas IMPRESSION: Fluoro was provided. Reading Location: [facility]
[2025-08-31] MEDS: fentaNYL 100 MCG/2 ML Ampul IV (16:16)
--- NOTE | 2025-08-31 17:23 | PCM.POST.ANE ---
Anesthesia: Postop Eval I Current Vital Signs Temperature: 97.3 F Pulse Rate: 73 Blood Pressure: 127/72 Respiratory Rate: 20 Pulse Ox: 99 Oxygen Delivery Method: Room Air Assessment Airway patent: Yes Spontaneous unlabored respirations: Yes Mental status: Awake and Calm nausea: No Vomiting: No Anesthesia Complication: No Fluid Hydration Crystalloid volume administer (ml): 500 Total IV fluid infused: 500 Progress Note Anesthesia document: Postop Eval 1 completed: Yes
--- NOTE | 2025-08-31 17:46 | OP.PROVAT_ITS ---
08/31/2025 No Primary Care Physician Re : ERCP procedure for Maria Teresa Garcia Dear Care Physician This procedure was performed on Sunday, August 31, 2025. My impressions and recommendations are as follows: Impressions : - Granular gastric mucosa. - Acquired duodenal stenosis. - Biopsies were taken with a cold forceps for histology in the gastric antrum, in the duodenal bulb and in the first portion of the duodenum. - A single localized biliary stricture was found in the lower third of the main bile duct. The stricture was indeterminate. Recommendations : Percutaneous drainage of the hepatobiliary tree due to the inability to safely transverse distal common bile duct stricture due to pancreatic head mass. Patient will need biopsies of pancreatic head mass via EUS or via IR. My findings are described in the full procedure note, which is enclosed. If I can be of further assistance, please feel free to contact me at . Sincerely, Nakul Velasquez, 08/31/2025 5:46:02 PM This report has been signed electronically.
--- NOTE | 2025-08-31 17:46 | OP.ERCP_ITS ---
Patient Name: Maria Teresa Garcia Procedure Date: 08/31/2025 3:36 PM Date of : 1955 Age: 70 Procedure: ERCP Indications: Jaundice, Elevated liver enzymes, Tumor of the head of pancreas Providers: Nakul Velasquez DO Medicines: General Anesthesia Patient Profile: This is a 70 year old female. Refer to note in patient chart for documentation of history and physical. Patient has symptoms of acute jaundice. This patient has no history of previous ERCP. She is status post laparoscopic cholecystectomy. Complications: No immediate complications. Procedure: Pre-Anesthesia Assessment: - Prior to the procedure, a History and Physical was performed, and patient medications and allergies were reviewed. The patient is competent. The risks and benefits of the procedure and the sedation options and risks were discussed with the patient. All questions were answered and informed consent was obtained. Patient identification and proposed procedure were verified by the physician in the pre-procedure area. Mental Status Examination: alert and oriented. Airway Examination: normal oropharyngeal airway and neck mobility. Respiratory Examination: clear to auscultation. CV Examination: normal. Prophylactic Antibiotics: The patient does not require prophylactic antibiotics. Prior Anticoagulants: The patient has taken no anticoagulant or antiplatelet agents. ASA Grade Assessment: II - A patient with mild systemic disease. After reviewing the risks and benefits, the patient was deemed in satisfactory condition to undergo the procedure. The anesthesia plan was to use general anesthesia. Immediately prior to administration of medications, the patient was re-assessed for adequacy to receive sedatives. The heart rate, respiratory rate, oxygen saturations, blood pressure, adequacy of pulmonary ventilation, and response to care were monitored throughout the procedure. The physical status of the patient was re-assessed after the procedure. After obtaining informed consent, the scope was passed under direct vision. Throughout the procedure, the patient's blood pressure, pulse, and oxygen saturations were monitored continuously. The Duodenoscope was introduced through the mouth, and advanced to the duodenum and used to cannulate the bile duct. The ERCP was accomplished without difficulty. The patient tolerated the procedure well. The procedure was determined to be ASGE Complexity Level 4. Scope In: 4:11:10 PM Scope Out: 5:04:53 PM Total Procedure Duration Time 0 hours 53 minutes 43 seconds Findings: The money laundering investigator film was normal. The esophagus was successfully intubated under direct vision. The scope was advanced to a normal major papilla in the descending duodenum without detailed examination of the pharynx, larynx and associated structures, and upper GI tract. The upper GI tract was grossly normal. A 0.035 inch x 260 cm straight Dreamwire was passed into the biliary tree. The short-nosed traction sphincterotome was passed over the guidewire and the bile duct was then deeply cannulated. Contrast was injected. A standard esophagogastroduodenoscopy scope was used for the examination of the upper gastrointestinal tract. The scope was passed under direct vision through the upper GI tract. Patchy granular mucosa was found in the gastric antrum. A standard esophagogastroduodenoscopy scope was used for the examination of the upper gastrointestinal tract. The scope was passed under direct vision through the upper GI tract. An acquired malignant-appearing, intrinsic moderate stenosis was found in the duodenal bulb and in the first portion of the duodenum and was traversed. Biopsies were taken in the gastric antrum, in the duodenal bulb and in the first portion of the duodenum through the esophagogastroduodenoscope with the cold forceps for histology. Superficial cannulation of and contrast injection into the bile duct was accomplished with the short-nosed traction sphincterotome. Opacification of the lower third of the main bile duct was incomplete. The maximum diameter of the ducts was 4 mm. The lower third of the main bile duct contained a single localized stenosis 6 mm in length. A long 0.025 inch Jagwire was passed into the biliary tree. Impression: - Granular gastric mucosa. - Acquired duodenal stenosis. - Biopsies were taken with a cold forceps for histology in the gastric antrum, in the duodenal bulb and in the first portion of the duodenum. - A single localized biliary stricture was found in the lower third of the main bile duct. The stricture was indeterminate. Recommendation: Percutaneous drainage of the hepatobiliary tree due to the inability to safely transverse distal common bile duct stricture due to pancreatic head mass. Patient will need biopsies of pancreatic head mass via EUS or via IR. Procedure Code(s): --- Professional --- 31404, Endoscopic retrograde cholangiopancreatography (ERCP); diagnostic, including collection of specimen(s) by brushing or washing, when performed (separate procedure) 82889, 59,51, Esophagogastroduodenoscopy, flexible, transoral; with biopsy, single or multiple CPT copyright 2021 [employer]. All rights reserved. The codes documented in this report are preliminary and upon rim fire priming tool setter review may be revised to meet current compliance requirements. Nakul Velasquez DO 08/31/2025 5:46:02 PM This report has been signed electronically. Number of Addenda: 0 Note Initiated On: 08/31/2025 3:36 PM
[2025-08-31] MEDS: Lactated Ringers 1,000 ML 150 ML IV (18:01)
--- NOTE | 2025-08-31 18:02 | POSTOPAN2_ITS ---
Anesthesia Postop Eval I Sum Postop Eval Completion status Anesthesia document: Postop Eval 1 completed: Yes Anesthesia Postop Eval I Summary Anesthesia Postop Eval I Summary: Anesthesia Postop Eval I: Assessment Summary Airway patent Yes 08/31/25 17:24 SALES REPRESENTATIVE [email or web address] Spontaneous unlabored Yes 08/31/25 17:24 SALES REPRESENTATIVE [email or web address] respirations Mental status Awake,Calm 08/31/25 17:24 SALES REPRESENTATIVE [email or web address] nausea No 08/31/25 17:24 SALES REPRESENTATIVE [email or web address] Vomiting No 08/31/25 17:24 SALES REPRESENTATIVE [email or web address] Anesthesia Postop Eval I: Fluid Summary Crystalloid volume administer 500 08/31/25 17:24 SALES REPRESENTATIVE [email or web address] (ml) Colloids volume administered ( ml) Blood Product volume administered (ml) Total IV fluid infused 500 08/31/25 17:24 SALES REPRESENTATIVE [email or web address] Anesthesia Postop Eval I: Summary Notes Anesthesia Complication No 08/31/25 17:24 SALES REPRESENTATIVE [email or web address] Anesthesia Complication Comment: Post-operative progress note Anesthesia: Postop Eval II Evaluation Mental status: Awake and Calm Pain Level: 1 nausea: No Vomiting: No Complications Anesthesia Complication: No
--- NOTE | 2025-08-31 18:02 | PCM.POSTANE2 ---
Anesthesia Postop Eval I Sum Postop Eval Completion status Anesthesia document: Postop Eval 1 completed: Yes Anesthesia Postop Eval I Summary Anesthesia Postop Eval I Summary: Anesthesia Postop Eval I: Assessment Summary Airway patent Yes 08/31/25 17:24 MILD DISABILITIES [email or web address] Spontaneous unlabored Yes 08/31/25 17:24 MILD DISABILITIES [email or web address] respirations Mental status Awake,Calm 08/31/25 17:24 MILD DISABILITIES [email or web address] nausea No 08/31/25 17:24 MILD DISABILITIES [email or web address] Vomiting No 08/31/25 17:24 MILD DISABILITIES [email or web address] Anesthesia Postop Eval I: Fluid Summary Crystalloid volume administer 500 08/31/25 17:24 MILD DISABILITIES [email or web address] (ml) Colloids volume administered ( ml) Blood Product volume administered (ml) Total IV fluid infused 500 08/31/25 17:24 MILD [email or web address] Anesthesia Postop Eval I: Summary Notes Anesthesia Complication No 08/31/25 17:24 MILD DISABILITIES [email or web address] Anesthesia Complication Comment: Post-operative progress note Anesthesia: Postop Eval II Evaluation Mental status: Awake and Calm Pain Level: 1 nausea: No Vomiting: No Complications Anesthesia Complication: No
[2025-09-01] MEDS: Lactated Ringers 1,000 ML 150 ML IV (02:03)
[2025-09-01 02:58] VITALS: BMI 27.9
[2025-09-01 03:35] VITALS: BP 106/69; PULSE 51; RESP 16; TEMP 36.3; O2SAT 100
[2025-09-01 07:31] LABS: Hematocrit 23.8 % (37-47); Hemoglobin 7.0 g/dL (12.0-15.0); Immature Granulocytes Count 0.090 X10^3/uL (0.0-0.0); Mean Corp Hgb Conc 29.4 g/dL (32-36); Mean Corpuscular Volume 99.6 fL (81-99); Mean Platelet Vol. 12.2 fl (6.2-12.0); NRBC Flagged by Analyzer 0.2 % (0-5); POSITIVE MORPHOLOGY YES; Platelet Count 159 K/mm3 (150-450); RBC Distribution Width CV 18.6 % (11.6-14.6); RBC Distribution Width SD 67.7 fl (35.1-43.9); Red Blood Count 2.39 M/mm3 (4.2-5.4); White Blood Count 9.2 K/mm3 (4.4-11.0)
[2025-09-01 07:32] LABS: Differential Indicated SCAN CRITERIA MET
[2025-09-01 08:10] LABS: Anisocytosis 2+; Differential Comment SCANNED
[2025-09-01 08:43] LABS: AST(SGOT) 75 U/L (<=31); Alanine Aminotransfer ALT/SGPT 97 U/L (<=34); Albumin, Serum 2.6 g/dL (3.4-4.8); Alkaline Phosphatase 2568 U/L (35-104); Bilirubin, Direct 1.87 mg/dL (0.00-0.30)
[2025-09-01 08:51] LABS: Magnesium 1.7 mg/dL (1.5-2.2)
[2025-09-01 08:52] LABS: Globulin 2.6 g/dL (2.2-4.2)
--- NOTE | 2025-09-01 09:11 | PN.HOSP_ITS ---
Reason for Visit Chief Complaint: Lightheadedness, dizziness. Subjective Subjective No new events. Patient advised by GI to be transferred to a tertiary facility. She and her family selected [facility]. Objective Data Objective Data Vital Signs: Vital Signs Temp Pulse Resp BP Pulse Ox O2 Del Method 36.3 C L 51 L 16 106/69 100 Room Air 09/01/25 03:35 09/01/25 03:35 09/01/25 03:35 09/01/25 03:35 09/01/25 03:35 09/01/25 03:35 Oxygen Delivery Method Room Air Weight: 71.6 kg Body Mass Index (BMI) 27.9 Intake & Output: Intake and Output for Last 24 Hours 08/30/25 08/31/25 09/01/25 23:59 23:59 23:59 Intake Total 1150 / 1150 187.5 / 187.5 1999 Output Total 150 / 150 Balance 1000 / 1000 187.5 / 187.5 1999 Lab / Micro Data 09/01/25 07:08 08/31/25 04:22 Labs: Laboratory Results - last 24 hr 08/30/25 03:23: ALMA-1 Antibody <0.2, SS-A/Ro IgG Antibody < 0.2, SS-B/La IgG Antibody < 0.2, Sm (Lester) Antibody <0.2, VPK TEACHER Antibody <0.2, Scl-70 Scleroderma Ab <0.2, Double Strand DNA Ab 1, Antichromatin Antibodies <0.2, Centromere B Antibody <0.2, Anti-Mitochondrial Ab <20.0 09/01/25 07:08: WBC 9.2, RBC 2.39 L, Hgb 7.0 L, Hct 23.8 L, MCV 99.6 H, MCH 29.3, MCHC 29.4 L, RDW Std Deviation 67.7 H, RDW Coeff of Aisha 18.6 H, Plt Count 159, MPV 12.2 H, Immature Gran % (Auto) 1.000 H, Neut % (Auto) 68.8, Lymph % (Auto) 21.4, [place] % (Auto) 4.9, Eos % (Auto) 3.1, Baso % (Auto) 0.8, Absolute Neuts (auto) 6.3, Absolute Lymphs (auto) 1.96, Nucleated RBC % 0.2, Differential Comment SCANNED, Anisocytosis 2+, Magnesium 1.7, Total Bilirubin 2.25 H, Direct Bilirubin 1.87 H, AST 75 H, ALT 97 H, Alkaline Phosphatase 2568 H, Total Protein 5.3 L, Albumin 2.6 L, Globulin 2.6 Micro: Microbiology 08/30/25 08:14 Urine, Clean Catch Urine Culture - Final Culture exhibits no growth. 08/29/25 10:43 Stool Stool Occult Blood (ARLETH) - Final Occult Blood Positive Radiography Diagnostic Testing: Radiology Impression Endo Retro Cholangiopancreatogram 08/31/25 16:15 IMPRESSION: Fluoro was provided. Reading [facility] Physical Exam Const alert and no apparent distress HEENT head/scalp atraumatic and moist oral mucous membranes Resp normal respiratory effort, no retractions, no use of accessory muscles and clear to auscultation bilaterally Cardio regular rate, regular rhythm, S1 normal heart sound and S2 normal heart sound GI non-distended GI Narrative: hepatomegaly. Skin Skin Narrative: jaundice. Assessment & Plan Assessment/Plan (1) UTI (urinary tract infection): PLAN: Plan Transaminitis * 2/2 pancreatic mass * MRCP: irregular signal lesion at the pancreatic head measuring 4.2x5cm. * GI consult * on empiric cefepime * autoimmune panel ordered. 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 * JESSE Velasquez who recommended transfer. I spoke with [facility] and explained the patient's case. Patient has been accepted, but no readily available beds. Abnormal UA * equivocal UA. * UCx negative. DC abx. Anemia * check anemia studies * monitor. Chronic conditions: * CAD: Status post PCI. Continue aspirin, hold Xarelto. * PAD: Status post aortobifemoral bypass. continue medications as mentioned above * Hypertension: Given significant orthostasis. Antihypertensive medications held because of orthostatic hold for SBP less than 130 mmHg. * Hyperlipidemia: As mentioned above allergy to atorvastatin but was on rosuvastatin. Currently on * PAF: continue patient home sotalol. Holds Xarelto * GERD: Not on regimen, as needed Mylanta. DVT prophylaxis: Xarelto discontinued because of severe anemia as mentioned above. Bilateral SCDs CODE status: Patient does not have healthcare power of shop laborer or living will in place but notes her who is present would be her medical decision- maker if necessary. Discussed CODE status at length including difference between FULL code, DNR-CCA and DNR-CC status. Following discussions about the differences in these status, requested Full Code status. DW patient's family at bedside. Greater than 55 minutes which was discussing the plan with patient and her family, discussing with the specialist and transfer line at [facility] and the accepting physician at [facility]. Charges/Coding Visit Charges Inpatient E&M: 39276 Subs Hosp L3
[2025-09-01 10:56] VITALS: BP 100/52; PULSE 53; RESP 16; TEMP 36.4; O2SAT 100
[2025-09-01] MEDS: Senna/Docusate Sodium 1 Tablet 2 TABLET PO ×2 (10:59→21:32)
[2025-09-01] MEDS: 0.9% Saline Lock 10 ML Syringe IV ×2 (11:03→21:32)
[2025-09-01] MEDS: Cefepime HCl 1 GM in 0.9% Normal Saline (50mL MB+) 50 ML IV (11:05)
[2025-09-01 17:34] VITALS: BP 120/85; PULSE 48; RESP 16; TEMP 36.4; O2SAT 99
[2025-09-01 21:30] VITALS: BP 105/59; PULSE 54; RESP 17; TEMP 36.4; O2SAT 99
[2025-09-01 23:38] VITALS: BMI 28.5
[2025-09-02 04:26] VITALS: BP 117/58; PULSE 55; RESP 16; TEMP 36.4; O2SAT 99
[2025-09-02 05:59] LABS: Hematocrit 28.3 % (37-47); Hemoglobin 8.2 g/dL (12.0-15.0); Immature Granulocytes Count 0.100 X10^3/uL (0.0-0.0); Mean Corp Hgb Conc 29.0 g/dL (32-36); Mean Corpuscular Volume 99.6 fL (81-99); Mean Platelet Vol. 12.3 fl (6.2-12.0); NRBC Flagged by Analyzer 0.5 % (0-5); POSITIVE MORPHOLOGY YES; Platelet Count 191 K/mm3 (150-450); RBC Distribution Width CV 18.5 % (11.6-14.6); RBC Distribution Width SD 67.4 fl (35.1-43.9); Red Blood Count 2.84 M/mm3 (4.2-5.4); White Blood Count 9.1 K/mm3 (4.4-11.0)
[2025-09-02 06:07] LABS: Differential Indicated SCAN CRITERIA MET
[2025-09-02 06:57] LABS: Anisocytosis 2+; Differential Comment SCANNED
[2025-09-02 06:58] LABS: Target Cells 1+
[2025-09-02 07:13] LABS: Ferritin 291 ng/mL (22-378); Vitamin B12 605 pg/mL (180-914)
[2025-09-02 07:25] LABS: AST(SGOT) 95 U/L (<=31); Alanine Aminotransfer ALT/SGPT 103 U/L (<=34); Albumin, Serum 2.9 g/dL (3.4-4.8); Alkaline Phosphatase 2662 U/L (35-104); Anion Gap 12 (5-15); BUN 20 mg/dL (4-19); BUN/Creat Ratio 9.4 RATIO (10-20); Calcium,Total 8.6 mg/dL (7.6-11.0); Carbon Dioxide 16.7 mmol/L (21.0-32.0); Chloride 113 mmol/L (98-108); Estimated Creatinine Clearance 23.40 ml/min (50-250); Globulin 2.9 g/dL (2.2-4.2); Glucose 136 mg/dL (70-99); Potassium 3.5 mmol/L (3.3-5.1)
[2025-09-02 07:30] LABS: Iron 144 ug/dL (50-170); Iron Binding Capacity,Unsat 52 ug/dL (228-428)
[2025-09-02 07:37] LABS: Iron Binding Capacity,Total 196 ug/dL (250-450)
--- NOTE | 2025-09-02 08:00 | PN.HOSP_ITS ---
Reason for Visit Chief Complaint: Lightheadedness, dizziness. Subjective Subjective Feeling ok. No events overnight. Objective Data Objective Data Vital Signs: Vital Signs Temp Pulse Resp BP Pulse Ox O2 Del Method 36.4 C L 55 L 16 117/58 L 99 Room Air 09/02/25 04:26 09/02/25 04:26 09/02/25 04:26 09/02/25 04:26 09/02/25 04:26 09/02/25 04:26 Oxygen Delivery Method Room Air Weight: 72.9 kg Body Mass Index (BMI) 28.5 Intake & Output: Intake and Output for Last 24 Hours 08/31/25 09/01/25 09/02/25 23:59 23:59 23:59 Intake Total 187.5 / 187.5 2049 250 / 250 Balance 187.5 / 187.5 2049 250 / 250 Lab / Micro Data 09/02/25 05:36 09/02/25 05:36 Labs: Laboratory Results - last 24 hr 09/01/25 07:08: Differential Comment SCANNED, Anisocytosis 2+, Magnesium 1.7, T otal Bilirubin 2.25 H, Direct Bilirubin 1.87 H, AST 75 H, ALT 97 H, Alkaline Phosphatase 2568 H, Total Protein 5.3 L, Albumin 2.6 L, Globulin 2.6 09/02/25 05:36: WBC 9.1, RBC 2.84 L, Hgb 8.2 L, Hct 28.3 L, MCV 99.6 H, MCH 28.9, MCHC 29.0 L, RDW Std Deviation 67.4 H, RDW Coeff of Aisha 18.5 H, Plt Count 191, MPV 12.3 H, Immature Gran % (Auto) 1.100 H, Neut % (Auto) 70.1 H, Lymph % (Auto) 19.5, [place] % (Auto) 4.5, Eos % (Auto) 4.1, Baso % (Auto) 0.7, Absolute Neuts (auto) 6.4, Absolute Lymphs (auto) 1.78, Nucleated RBC % 0.5, Differential Comment SCANNED, Platelet Estimate ADEQUATE, Anisocytosis 2+, Target Cells 1+, Ovalocytes 1+, Stomatocytes 3+, Sodium 141, Potassium 3.5, Chloride 113 H, C arbon Dioxide 16.7 L, Anion Gap 12, BUN 20 H, Creatinine 2.14 H, Estim Creat Clear Calc 23.40 L, Est GFR (MDRD) Non-Af 24 L, BUN/Creatinine Ratio 9.4 L, G lucose 136 H, Calcium 8.6, Iron 144, TIBC 196 L, Iron Saturation 73.5 H, U nsaturated IBC 52 L, Ferritin 291, Total Bilirubin 2.17 H, AST 95 H, ALT 103 H, Alkaline Phosphatase 2662 H, Total Protein 5.8 L, Albumin 2.9 L, Globulin 2.9, Albumin/Globulin Ratio 1.0, Vitamin B12 605, TSH 3.200 Micro: Microbiology 08/30/25 08:14 Urine, Clean Catch Urine Culture - Final Culture exhibits no growth. 08/29/25 10:43 Stool Stool Occult Blood (ARLETH) - Final Occult Blood Positive Physical Exam Const alert and no apparent distress Constitutional Narrative: jaundice. non-toxic. afebrile. Assessment & Plan Assessment/Plan (1) UTI (urinary tract infection): PLAN: Plan Transaminitis * improving * 2/2 pancreatic mass * MRCP: irregular signal lesion at the pancreatic head measuring 4.2x5cm. * GI consult * on empiric cefepime * autoimmune panel ordered. 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 * JESSE Hernandez. Friend who recommended transfer. I spoke with [facility] on 09/01 and explained the patient's case. Patient has been accepted, but no readily available beds. * Tumor markers (AFP, CEA, CA 19-9) pending. * 09/02: still awaiting on bed availability. Abnormal UA * equivocal UA. * UCx negative. DC abx. Anemia * check anemia studies * monitor. Chronic conditions: * CAD: Status post PCI. Continue aspirin, hold Xarelto. * PAD: Status post aortobifemoral bypass. continue medications as mentioned above * Hypertension: Given significant orthostasis. Antihypertensive medications held because of orthostatic hold for SBP less than 130 mmHg. * Hyperlipidemia: As mentioned above allergy to atorvastatin but was on rosuvastatin. Currently on * PAF: continue patient home sotalol. Holds Xarelto * GERD: Not on regimen, as needed Mylanta. DVT prophylaxis: Xarelto discontinued because of severe anemia as mentioned above. Bilateral SCDs CODE status: Full code. Charges/Coding Visit Charges Inpatient E&M: 48649 Subs Hosp L1
[2025-09-02 08:09] LABS: Carcinoembryonic Antigen 8.0 ng/mL (0.0-4.7)
--- NOTE | 2025-09-02 08:57 | PCA ---
0855- THIS US CALLED [facility] FOR BED UPDATE ([phone]), SPOKE TO JOSEE- THE HOSPITAL IS DISCHARGE DEPENDENT TODAY AND COMPLETELY FULL. WILL CALL LATER THIS AFTERNOON IF STILL NO BED.
[2025-09-02 09:59] VITALS: BP 98/64; PULSE 53; RESP 16; TEMP 36.4; O2SAT 100
[2025-09-02 14:36] VITALS: BP 108/66; PULSE 58; RESP 18; TEMP 36.4; O2SAT 100
--- NOTE | 2025-09-02 16:28 | PCA ---
THIS US CALLED [facility], TALKED TO SARANYA WHO STATES THERE ARE NO BEDS AT THIS TIME BUT SHE IS AT THE TOP OF THE WAIT LIST, POSSIBLY TOMORROW
[2025-09-02 21:24] VITALS: BP 112/60; PULSE 53; RESP 16; TEMP 36.3; O2SAT 99
[2025-09-02] MEDS: 0.9% Saline Lock 10 ML Syringe IV (21:38)
[2025-09-02 22:07] LABS: ACCA 11 units (0-90); ALCA 10 units (0-60); AMCA 64 units (0-100); Albumin 2.3 g/dL (2.9-4.4); Anti-Smooth Muscle ABS 7 Units (0-19); Cytoplasmic Ab (C-ANCA) <1:20 titer (Neg:<1:20); Gamma Globulin 0.7 g/dL (0.4-1.8); IgG, Quant 764 mg/dL (586-1602); Immunoglobulin A 213 mg/dL (87-352); Immunoglobulin G, Subclass 1 386 mg/dL (248-810); Immunoglobulin G, Subclass 2 239 mg/dL (130-555); Immunoglobulin G, Subclass 3 69 mg/dL (15-102); Immunoglobulin G, Subclass 4 20 mg/dL (2-96); Immunoglobulin M 146 mg/dL (26-217); PROEL- TOTAL PROTEIN 4.9 g/dL (6.0-8.5); Perinuclear Ab (P-ANCA) <1:20 titer (Neg:<1:20)
[2025-09-03 03:10] VITALS: BMI 27.9
[2025-09-03 03:31] VITALS: BP 108/46; PULSE 56; RESP 16; TEMP 36.6; O2SAT 98
--- NOTE | 2025-09-03 08:23 | PN.HOSP_ITS ---
Reason for Visit Chief Complaint: Lightheadedness, dizziness. Subjective Subjective No new complaints. Objective Data Objective Data Vital Signs: Vital Signs Temp Pulse Resp BP Pulse Ox O2 Del Method 36.6 C 56 L 16 108/46 L 98 Room Air 09/03/25 03:31 09/03/25 03:31 09/03/25 03:31 09/03/25 03:31 09/03/25 03:31 09/03/25 03:34 Oxygen Delivery Method Room Air Weight: 71.6 kg Body Mass Index (BMI) 27.9 Intake & Output: Intake and Output for Last 24 Hours 09/01/25 09/02/25 09/03/25 23:59 23:59 23:59 Intake Total 2049 490 / 490 Balance 2049 490 / 490 Lab / Micro Data 09/02/25 05:36 09/02/25 05:36 Labs: Laboratory Results - last 24 hr 08/30/25 03:23: Total Protein (PEP) 4.9 L, Globulin 2.6, IgG Not Reportable, IgG Total 764, IgG1 386, IgG2 239, IgG3 69, IgG4 20, IgA 213, IgM 146, IgE 37, I mmunofixation Screen Comment H, Albumin (FLORINDA) 2.3 L, Albumin/Globulin (FLORINDA) 0.9, Bxjjz-4-Maglmqahg FLORINDA 0.3, Wytrx-9-Xaximfuki FLORINDA 0.8, Beta-Globulins (FLORINDA) 0.8, Gamma Globulins (FLORINDA) 0.7, FLORINDA M-Roman Comment:, FLORINDA Comments Comment, c-ANCA Antibody <1:20, Atypical p-ANCA <1:20, p-ANCA Antibody <1:20, Anti-Smooth Muscle Ab 7, Endomysial IgA Ab Negative, Tiss Transglutamin IgG <2, Tiss Transglutamin IgA <2, Anti-Gliadin IgG Ab 2, Anti-Gliadin IgA Ab 5, ALCA IgG Ab 10, AMCA IgG Ab 64, ACCA IgA Ab 11, IBD Serology Comment Comment, S.cerevisiae (Elvira)IgG 8 Micro: Microbiology 08/30/25 08:14 Urine, Clean Catch Urine Culture - Final Culture exhibits no growth. 08/29/25 10:43 Stool Stool Occult Blood (ARLETH) - Final Occult Blood Positive Physical Exam Const alert and no apparent distress HEENT head/scalp atraumatic and moist oral mucous membranes Resp normal respiratory effort and no retractions Assessment & Plan Assessment/Plan (1) UTI (urinary tract infection): PLAN: Plan Transaminitis * improving * 2/2 pancreatic mass * MRCP: irregular signal lesion at the pancreatic head measuring 4.2x5cm. * GI consult * on empiric cefepime * autoimmune panel ordered. 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 * JESSE Hernandez. Friend who recommended transfer. I spoke with [facility] main on 09/01 and explained the patient's case. Patient has been accepted, but no readily available beds. * Tumor markers (AFP, CEA, CA 19-9) pending. * 09/02: still awaiting on bed availability. * 09/03: still awaiting on bed availability. Abnormal UA * equivocal UA. * UCx negative. DC abx. Anemia * check anemia studies * monitor. Chronic conditions: * CAD: Status post PCI. Continue aspirin, hold Xarelto. * PAD: Status post aortobifemoral bypass. continue medications as mentioned above * Hypertension: Given significant orthostasis. Antihypertensive medications held because of orthostatic hold for SBP less than 130 mmHg. * Hyperlipidemia: As mentioned above allergy to atorvastatin but was on rosuvastatin. Currently on * PAF: continue patient home sotalol. Holds Xarelto * GERD: Not on regimen, as needed Mylanta. DVT prophylaxis: Xarelto discontinued because of severe anemia as mentioned above. Bilateral SCDs CODE status: Full code.
[2025-09-03 10:30] VITALS: BP 110/53; PULSE 56; RESP 16; TEMP 36.7; O2SAT 96
[2025-09-03 15:05] VITALS: BP 110/62; PULSE 54; RESP 16; TEMP 36.7; O2SAT 94
[2025-09-03 16:09] LABS: Folate, Hemolysate Test 244.0 ng/mL (Not Estab.); Folate, RBC (Hct) Test 27.4 % (34.0-46.6); Folates, RBC Test 891 ng/mL (>498)
[2025-09-03 20:20] VITALS: BP 130/80; PULSE 52; RESP 16; TEMP 36.7; O2SAT 100
[2025-09-03 21:40] VITALS: PULSE 56
[2025-09-04] VITALS (8 sets, daily range): BP systolic 118–152; BP diastolic 53–75; PULSE 51–58; RESP 16–17; TEMP 36.6–36.8; O2SAT 95–99; BMI 27.9
[2025-09-04] MEDS: 0.9% Saline Lock 10 ML Syringe IV ×2 (03:47→09:24)
[2025-09-04 05:47] LABS: Hematocrit 22.5 % (37-47); Hemoglobin 6.8 g/dL (12.0-15.0); Immature Granulocytes Count 0.060 X10^3/uL (0.0-0.0); Mean Corp Hgb Conc 30.2 g/dL (32-36); Mean Corpuscular Volume 99.6 fL (81-99); Mean Platelet Vol. 11.6 fl (6.2-12.0); NRBC Flagged by Analyzer 0.5 % (0-5); POSITIVE MORPHOLOGY YES; Platelet Count 168 K/mm3 (150-450); RBC Distribution Width CV 18.4 % (11.6-14.6); RBC Distribution Width SD 65.8 fl (35.1-43.9); Red Blood Count 2.26 M/mm3 (4.2-5.4); White Blood Count 7.4 K/mm3 (4.4-11.0)
[2025-09-04 05:54] LABS: Differential Indicated SCAN CRITERIA MET
[2025-09-04 06:44] LABS: AST(SGOT) 62 U/L (<=31); Alanine Aminotransfer ALT/SGPT 64 U/L (<=34); Albumin, Serum 2.6 g/dL (3.4-4.8); Alkaline Phosphatase 2220 U/L (35-104); Anion Gap 11 (5-15); BUN 17 mg/dL (4-19); BUN/Creat Ratio 9.0 RATIO (10-20); Calcium,Total 7.9 mg/dL (7.6-11.0); Carbon Dioxide 16.8 mmol/L (21.0-32.0); Chloride 114 mmol/L (98-108); Estimated Creatinine Clearance 27.13 ml/min (50-250); Globulin 2.5 g/dL (2.2-4.2); Glucose 96 mg/dL (70-99); Potassium 3.1 mmol/L (3.3-5.1)
[2025-09-04 06:47] LABS: Anisocytosis 2+
--- NOTE | 2025-09-04 08:30 | PN.HOSP_ITS ---
Reason for Visit Chief Complaint: Lightheadedness, dizziness. Subjective Subjective Denies any melena nor hematochezia. Objective Data Objective Data Vital Signs: Vital Signs Temp Pulse Resp BP Pulse Ox O2 Del Method 36.8 C 54 L 16 128/75 H 99 Room Air 09/04/25 03:20 09/04/25 03:20 09/04/25 03:20 09/04/25 03:20 09/04/25 03:20 09/04/25 03:20 Oxygen Delivery Method Room Air Weight: 71.5 kg Body Mass Index (BMI) 27.9 Intake & Output: Intake and Output for Last 24 Hours 09/02/25 09/03/25 09/04/25 23:59 23:59 23:59 Intake Total 490 / 490 0 / 0 Output Total 0 / 0 Balance 490 / 490 0 / 0 Lab / Micro Data 09/04/25 04:03 09/04/25 04:03 Labs: Laboratory Results - last 24 hr 08/31/25 04:22: Tumor Marker AFP < 1.8, CA 19-9 Antigen 283 H 09/02/25 05:36: RBC Folate Hemolysate 244.0, RBC Folate 891, Hematocrit 27.4 L 09/04/25 04:03: WBC 7.4, RBC 2.26 L, Hgb 6.8 L, Hct 22.5 L, MCV 99.6 H, MCH 30.1, MCHC 30.2 L, RDW Std Deviation 65.8 H, RDW Coeff of Aisha 18.4 H, Plt Count 168, MPV 11.6, Immature Gran % (Auto) 0.800, Neut % (Auto) 60.7, Lymph % (Auto) 26.6, Rapides % (Auto) 6.5, Eos % (Auto) 4.7, Baso % (Auto) 0.7, Absolute Neuts (auto) 4.5, Absolute Lymphs (auto) 1.96, Nucleated RBC % 0.5, Anisocytosis 2+, Sodium 142, Potassium 3.1 L, Chloride 114 H, Carbon Dioxide 16.8 L, Anion Gap 11, BUN 17, Creatinine 1.83 H, Estim Creat Clear Calc 27.13 L, Est GFR (MDRD) Non-Af 29 L, BUN/Creatinine Ratio 9.0 L, Glucose 96, Calcium 7.9, Total Bilirubin 1.53 H, AST 62 H, ALT 64 H, Alkaline Phosphatase 2220 H, Total Protein 5.2 L, Albumin 2.6 L, Globulin 2.5, Albumin/Globulin Ratio 1.0 Micro: Microbiology 08/30/25 08:14 Urine, Clean Catch Urine Culture - Final Culture exhibits no growth. 08/29/25 10:43 Stool Stool Occult Blood (ARLETH) - Final Occult Blood Positive Physical Exam Const alert Constitutional Narrative: Nontoxic. Jaundiced. Assessment & Plan Assessment/Plan (1) UTI (urinary tract infection): PLAN: Plan Transaminitis * improving * 2/2 pancreatic mass * MRCP: irregular signal lesion at the pancreatic head measuring 4.2x5cm. * GI consult * on empiric cefepime * autoimmune panel ordered. 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 * JESSE Velasquez who recommended transfer. I spoke with [facility] main on 09/01 and explained the patient's case. Patient has been accepted, but no readily available beds. * Tumor markers (AFP, CEA, CA 19-9) pending. * 09/02: still awaiting on bed availability. * 09/03: still awaiting on bed availability. Abnormal UA * equivocal UA. * UCx negative. DC abx. Anemia * Iron, ferritin, TSH, Folate, B12 WNL * Hg down to 6.8. Will transfuse 1 unit and monitor Chronic conditions: * CAD: Status post PCI. Continue aspirin, hold Xarelto. * PAD: Status post aortobifemoral bypass. continue medications as mentioned above * Hypertension: Given significant orthostasis. Antihypertensive medications held because of orthostatic hold for SBP less than 130 mmHg. * Hyperlipidemia: As mentioned above allergy to atorvastatin but was on rosuvastatin. Currently on * PAF: continue patient home sotalol. Holds Xarelto * GERD: Not on regimen, as needed Mylanta. DVT prophylaxis: Xarelto discontinued because of severe anemia as mentioned above. Bilateral SCDs CODE status: Full code. Charges/Coding Visit Charges Inpatient E&M: 39152 Subs Hosp L1 Date medically ready for discharge: 09/01/25 Reason for DC delay: Transfer delay to tertiary center
[2025-09-05 02:41] VITALS: BP 144/68; PULSE 50; RESP 14; TEMP 36.7; O2SAT 97
[2025-09-05 04:30] VITALS: BMI 27.3
[2025-09-05 06:24] LABS: Hematocrit 26.5 % (37-47); Hemoglobin 8.4 g/dL (12.0-15.0); Immature Granulocytes Count 0.080 X10^3/uL (0.0-0.0); Mean Corp Hgb Conc 31.7 g/dL (32-36); Mean Corpuscular Volume 96.7 fL (81-99); Mean Platelet Vol. 11.6 fl (6.2-12.0); NRBC Flagged by Analyzer 0.4 % (0-5); Platelet Count 174 K/mm3 (150-450); RBC Distribution Width CV 18.3 % (11.6-14.6); RBC Distribution Width SD 62.8 fl (35.1-43.9); Red Blood Count 2.74 M/mm3 (4.2-5.4); White Blood Count 8.3 K/mm3 (4.4-11.0)
[2025-09-05 06:53] LABS: Anion Gap 10 (5-15); BUN 15 mg/dL (4-19); BUN/Creat Ratio 8.8 RATIO (10-20); Calcium,Total 8.0 mg/dL (7.6-11.0); Carbon Dioxide 19.1 mmol/L (21.0-32.0); Chloride 113 mmol/L (98-108); Estimated Creatinine Clearance 28.89 ml/min (50-250); Glucose 120 mg/dL (70-99); Potassium 3.7 mmol/L (3.3-5.1)
--- NOTE | 2025-09-05 07:56 | PN.HOSP_ITS ---
Reason for Visit Chief Complaint: Lightheadedness, dizziness. Subjective Subjective No events overnight. Denies any abdominal pain. Tolerating regular diet fine. Objective Data Objective Data Vital Signs: Vital Signs Temp Pulse Resp BP Pulse Ox O2 Del Method 36.7 C 50 L 14 144/68 H 97 Room Air 09/05/25 02:41 09/05/25 02:41 09/05/25 02:41 09/05/25 02:41 09/05/25 02:41 09/05/25 03:22 Oxygen Delivery Method Room Air Weight: 70 kg Body Mass Index (BMI) 27.3 Intake & Output: Intake and Output for Last 24 Hours 09/03/25 09/04/25 09/05/25 23:59 23:59 23:59 Intake Total 400 / 400 Output Total 0 / 0 Balance 400 / 400 Lab / Micro Data 09/05/25 05:54 09/05/25 05:54 Labs: Laboratory Results - last 24 hr 08/31/25 04:22: Tumor Marker AFP < 1.8, CA 19-9 Antigen 283 H 09/04/25 09:18: Blood Type A POSITIVE, Antibody Screen NEGATIVE, Crossmatch See Detail 09/05/25 05:54: WBC 8.3, RBC 2.74 L, Hgb 8.4 L, Hct 26.5 L, MCV 96.7, MCH 30.7, MCHC 31.7 L, RDW Std Deviation 62.8 H, RDW Coeff of Aisha 18.3 H, Plt Count 174, MPV 11.6, Immature Gran % (Auto) 1.000 H, Neut % (Auto) 65.0, Lymph % (Auto) 24.2, Walker % (Auto) 5.0, Eos % (Auto) 4.2, Baso % (Auto) 0.6, Absolute Neuts (auto) 5.4, Absolute Lymphs (auto) 2.02, Nucleated RBC % 0.4, Sodium 142, Potassium 3.7, Chloride 113 H, Carbon Dioxide 19.1 L, Anion Gap 10, BUN 15, C reatinine 1.70 H, Estim Creat Clear Calc 28.89 L, Est GFR (MDRD) Non-Af 32 L, B UN/Creatinine Ratio 8.8 L, Glucose 120 H, Calcium 8.0 Micro: Microbiology 08/30/25 08:14 Urine, Clean Catch Urine Culture - Final Culture exhibits no growth. 08/29/25 10:43 Stool Stool Occult Blood (ARLETH) - Final Occult Blood Positive Physical Exam Const alert and no apparent distress Constitutional Narrative: Nontoxic. Afebrile. HEENT head/scalp atraumatic and moist oral mucous membranes HEENT Narrative: Icterus Resp normal respiratory effort and no retractions GI normal to inspection, nondistended, normoactive bowel sounds, soft to palpation, non-tender and non-distended Skin Skin Narrative: Jaundice Assessment & Plan Assessment/Plan (1) UTI (urinary tract infection): PLAN: Plan Transaminitis * improving * 2/2 pancreatic mass * MRCP: irregular signal lesion at the pancreatic head measuring 4.2x5cm. * GI consult * on empiric cefepime * autoimmune panel ordered. 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 * JESSE Velasquez who recommended transfer. I spoke with [facility] main on 09/01 and explained the patient's case. Patient has been accepted, but no readily available beds. * Tumor markers (AFP, CEA, CA 19-9) pending. * Transfer still pending. Discussed with the patient and her who is at bedside that she would be going to very appropriate facility but given the ongoing limited available beds, she still waiting on transfer.Informed the patient that if her status changes, will notify [facility]. I did discuss with the charge nurse that there is still no readily available bed for [facility] Abnormal UA * equivocal UA. * UCx negative. DC abx. Anemia * Iron, ferritin, TSH, Folate, B12 WNL * Improved after 1 unit PRBCs. Chronic conditions: * CAD: Status post PCI. Continue aspirin, hold Xarelto. * PAD: Status post aortobifemoral bypass. continue medications as mentioned above * Hypertension: Given significant orthostasis. Antihypertensive medications held because of orthostatic hold for SBP less than 130 mmHg. * Hyperlipidemia: As mentioned above allergy to atorvastatin but was on rosuvastatin. Currently on * PAF: continue patient home sotalol. Holds Xarelto * GERD: Not on regimen, as needed Mylanta. DVT prophylaxis: Xarelto discontinued because of severe anemia as mentioned above. Bilateral SCDs CODE status: Full code. Charges/Coding Visit Charges Inpatient E&M: 26426 Subs Hosp L2 Date medically ready for discharge: 09/01/25 Reason for DC delay: Transfer delay to tertiary center
[2025-09-05 09:21] VITALS: BP 145/89; PULSE 58; RESP 17; TEMP 36.7; O2SAT 97
[2025-09-05 15:45] VITALS: BP 134/77; PULSE 57; RESP 17; TEMP 36.7; O2SAT 97
[2025-09-05 21:18] VITALS: BP 153/63; PULSE 58; RESP 14; TEMP 36.7; O2SAT 96
[2025-09-05 22:08] VITALS: BP 149/66; PULSE 59; RESP 14; TEMP 36.8; O2SAT 96
--- NOTE | 2025-09-05 23:30 | DS.PCM_ITS ---
Providers Date of Admission: 08/28/25 Primary Care Physician: Yvonne Primary Care Phys Consultations 08/29/25 11:06 Consult: Gastroenterology Routine Consulting Provider: Rodney [facility] Reason for Consult: Acute liver injury, acute anemia but seems anemia of chr disease EMERGENT Consult: No MD Notified: Yes Date Notified: 08/29/25 Time Notified: 11:06 Method of Notification: Text Reason For Visit: LH/DIZZINESS, ORTHOSTATIC, UTI, AND ANEMIA Diagnosis Discharge Diagnosis (1) UTI (urinary tract infection): Status: Acute Code(s): N39.0 - Urinary tract infection, site not specified Plan Transaminitis * improving * 2/2 pancreatic mass * MRCP: irregular signal lesion at the pancreatic head measuring 4.2x5cm. * GI consult * on empiric cefepime * autoimmune panel ordered. 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 * JESSE Velasquez who recommended transfer. I spoke with [facility] main on 09/01 and explained the patient's case. Patient has been accepted, but no readily available beds. * Tumor markers (AFP, CEA, CA 19-9) pending. * Transfer still pending. Discussed with the patient and her who is at bedside that she would be going to very appropriate facility but given the ongoing limited available beds, she still waiting on transfer.Informed the patient that if her status changes, will notify [facility]. * Patient discharged to [facility] on August 05, 2025. Abnormal UA * equivocal UA. * UCx negative. DC abx. Anemia * Iron, ferritin, TSH, Folate, B12 WNL * Improved after 1 unit PRBCs. Chronic conditions: * CAD: Status post PCI. Continue aspirin, hold Xarelto. * PAD: Status post aortobifemoral bypass. continue medications as mentioned above * Hypertension: Given significant orthostasis. Antihypertensive medications held because of orthostatic hold for SBP less than 130 mmHg. * Hyperlipidemia: As mentioned above allergy to atorvastatin but was on rosuvastatin. Currently on * PAF: continue patient home sotalol. Holds Xarelto * GERD: Not on regimen, as needed Mylanta. DVT prophylaxis: Xarelto discontinued because of severe anemia as mentioned above. Bilateral SCDs CODE status: Full code. Medications at Discharge Home Medications amlodipine 5 mg tablet 5 mg PO DAILY blood pressure 03/01/15 aspirin 81 mg tablet,delayed release 81 mg PO DAILY@0800 heart 03/01/15 isosorbide mononitrate 30 mg tablet,extended release 24 hr 30 mg PO DAILY heart 03/01/15 rivaroxaban 20 mg tablet (Xarelto) 20 mg PO DAILY blood thinner 03/01/15 rosuvastatin 40 mg tablet (Crestor) 40 mg PO QHS cholesterol 03/01/15 sotalol 80 mg tablet (Betapace AF) 40 mg PO BID heart 03/01/15 lisinopril 40 mg tablet 40 mg PO DAILY blood pressure 08/28/25 Hospital Course Operations None Procedures None Summary of Care Provided Hospital Course: This is a 70-year-old female that presented with jaundice. Patient was found to have pancreatic mass on imaging. ERCP was attempted but unable to cannulate the bile ducts due to the mass. Recommendation was made to have a referral to [facility]. Patient was accepted but unfortunate cannot be transferred immediately so remained here in the hospital. While she was here she did experience anemia. Her rivaroxaban was held. And she was transfused 1 unit of packed red blood cells. Weight / BMI Weight Weight: 70 kg Body Mass Index (BMI) 27.3 ABG / Lab / Microbiology Data 09/05/25 05:54 09/05/25 05:54 Microbiology: Microbiology 08/30/25 08:14 Urine, Clean Catch Urine Culture - Final Culture exhibits no growth. 08/29/25 10:43 Stool Stool Occult Blood (ARLETH) - Final Occult Blood Positive D/C Instructions DC O2, CPAP, BIPAP Needs Home O2 Discharge instructions: No Meaningful Use Info Meaningful Use Meaningful Use Diagnoses (Choose all that apply): None applicable Discharge Plan Admission Admit Date/Time: 08/28/25 21:33 Primary Reason for Your Visit: Jaundice Attending Provider: Prabhu Slade Primary Care Provider: Care Physician,No Primary Consulting Providers: Josselin Lundberg; Raudel Yates; Nakul Velasquez; Lauren Hogan; Debbie Becerra; Radha Pineda Discharge Orders/Prescriptions Prescriptions: No Action sotalol [Betapace AF] 80 MG tablet 40 mg PO BID Patient Comments: heart isosorbide mononitrate 30 MG tablet 30 mg PO DAILY Patient Comments: heart amlodipine 5 MG tablet 5 mg PO DAILY Patient Comments: blood pressure aspirin 81 MG tablet 81 mg PO DAILY@0800 Patient Comments: heart rosuvastatin [Crestor] 40 MG tablet 40 mg PO QHS Xarelto 20 MG tablet 20 mg PO DAILY Patient Comments: blood thinner lisinopril 40 mg tablet 40 mg PO DAILY Referrals / Follow Up: Liz Swanson MD [Med Staff - Director Business Development, Internal Medicine] Care Physician,No Primary [Primary Care Provider, Medical] Disposition Disposition (needs filled in before D/C Order can be placed): Acute Care Hospital Charges/Coding Visit Charges Inpatient E&M: 61330 Disch Hosp
== END 2025-09-05 22:18 | disposition short-term general hospital (02) | DRG 438 ==
LOC: ED 21:41 → PCU 21:56
PROVIDERS: Anesthesiology; Internal Medicine; Internal Medicine Gastroenterology; Admitting Provider Family Medicine; Emergency Provider Student in an Organized Health Care Education/Training Program
PROC: 0DB98ZX Excision of Duodenum, Via Natural or Artificial Opening Endoscopic, Diagnostic (ICD-10-PCS; CPT 43260; principal; 2025-08-31 15:10)
DX: K86.89 Other specified diseases of pancreas (principal); K72.00 Acute and subacute hepatic failure without coma; K83.1 Obstruction of bile duct; K31.5 Obstruction of duodenum; D62 Acute posthemorrhagic anemia; N17.9 Acute kidney failure, unspecified; R17 Unspecified jaundice; N18.30 Chronic kidney disease, stage 3 unspecified; D63.8 Anemia in other chronic diseases classified elsewhere; I12.9 Hypertensive chronic kidney disease with stage 1 through stage 4 chronic kidney disease, or unspecified chronic kidney disease; I73.9 Peripheral vascular disease, unspecified; K75.89 Other specified inflammatory liver diseases; I48.0 Paroxysmal atrial fibrillation; K21.9 Gastro-esophageal reflux disease without esophagitis; F17.210 Nicotine dependence, cigarettes, uncomplicated; E78.5 Hyperlipidemia, unspecified; I25.10 Atherosclerotic heart disease of native coronary artery without angina pectoris; I71.9 Aortic aneurysm of unspecified site, without rupture; R73.03 Prediabetes; Z79.899 Other long term (current) drug therapy; Z79.82 Long term (current) use of aspirin; Z79.01 Long term (current) use of anticoagulants; Z95.1 Presence of aortocoronary bypass graft; R82.71 Bacteriuria
CPT/HCPCS: 36415; 71046; 74176; 74181; 74330; 76000; 76705; 80048; 80053; 80074; 80076; 81001; 82105; 82274; 82378; 82570; 82607; 82728; 82747; 82784; 82785; 82787; 83036; 83516; 83540; 83550; 83615; 83690; 83735; 83880; 84100; 84165; 84300; 84443; 84484; 85014; 85018; 85025; 85045; 85610; 85652; 85730; 86036; 86037; 86140; 86225; 86235; 86255; 86301; 86334; 86671; 86850; 86900; 86901; 86920; 86922; 87086; 88305; 88342; 93005; 93306; 97162; 97166; 97802; 97803; 99285; C1889; P9016; A4216; J2405